=== PATIENT | male | born 1935 | race Caucasian/White ===

== ENCOUNTER 2018-05-11 08:18 | Inpatient (IN) ==
[2018-05-11] MEDS ORDERED: Naloxone 0.4 MG/ML INJ IVP PRN (11:28)
[2018-05-11 12:12] LABS: Basophils % 0.2 %; Hematocrit 21.5 % (37.5-50.1); Hemoglobin 6.9 g/dL (12.9-16.9); Immature Granulocytes % 0.4 % (0-4); Lymphocytes # 1.3 K/mcL (0.6-4.6); Lymphocytes % 11.1 %; Mean Corpuscular HGB Conc 32.1 g/dL (31.6-35.5); Mean Corpuscular Hemoglobin 29.1 pg (28.0-33.3); Mean Corpuscular Volume 90.7 fL (83.0-100.0); Mean Platelet Volume 10.3 fL (9.4-12.4); Monocytes % 8.4 %; Neutrophils # 9.3 K/mcL (1.6-8.9); Platelet Count 257 K/mcL (140-400); Red Blood Count 2.37 M/mcL (4.19-5.50); Red Cell Distribution Width 17.3 % (11.5-14.5); Segmented Neutrophils % 79.9 %
--- NOTE | 2018-05-11 12:13 | Internal Med History&Physical ---
Date of Encounter: 05/11/18 Time of Encounter: 12:20 Internal Medicine - H&P: HPI Chief complaint: gi bleed Admitted From: Intrahospital Transfer History of present illness: presented at transfer from [facility]. Presented to ED with one day of emesis with blood and clots. No prior hx of same. Started in afternoon 05/10. Pt has poor vision and it was whom identified bright red blood and dark clot in oilet after episode of emesis. Two addl episodes since then with most recent 05/11 approx 4 am prior to presented to [facility] ED. No assoicated abd pain. hx of gastric ulcer about 50 years ago. takes ASA 325 g daily s/p CEA about 3 years ago-was instructed to take baby asa but taking higher dose on own. + nausea and emesis as above. one loose bm, pt did not identify blood or melena, none reported by either but unsure if visualized. no associated cp, palpitations, presyncope, fatigue or sob. He has not eaten and is hungry. Agreeable to blood as needed. Denies recent cough, cold, sputum, hemoptysis. No nosebleeds, oral bleeding. Denies cp, plapitations, syncope, presyncope, chest pressure, orthopnea, le edema Denies pallor, rash, jaundice At OSH hgb 7.8, nml platelets. Mild leukocytosis 14s. BP normotensive, HR low 100s. Trop elevated to 0.1 without any acute ischemic changes on EKG, NSR. CT a/ p without acute findings. Received zofran, protonix gtt and transferred for further work up. Past Med Surg Social Fam HX - Past Medical History Medical history: diabetes, hyperlipidemia, hypertension, kidney stones, other Additional medical history: stomach ulcer Psychiatric history: no psych history - Social History Smoking Status: Current every day smoker Packs per day: 0.5 Smokeless Tobacco Status: No Alcohol use: occasionally Drug use: none - Family History Mother History Unknown: Yes Internal Medicine - H&P: Meds Aspirin 325 mg PO HS 10/18/15 [History] Lisinopril/Hydrochlorothiazide [Zestoretic 20-25 mg Tablet] 1 each PO HS [History] Lovastatin [Mevacor] 20 mg PO HS 10/18/15 [History] metFORMIN [Glucophage] 500 mg PO BIDWM 10/18/15 [History] Ferrous Sulfate [Iron] 325 mg PO DAILY 05/11/18 [History] Mv-Min/FA/Vit K/Lycop/Lut/Zeax [Ocuvite Eye + Multi Tablet] 1 tab PO DAILY 05/11 [History] 3 Allergy/AdvReac Type Severity Reaction Status Date / Time No Known Allergies Allergy Verified 05/11/18 12:28 All Systems PM: A 10-system review of systems was performed and is negative for pertinent findings except as documented above in the HPI. - Constitutional Vitals: Temp Pulse Resp BP Pulse Ox 97.4 F L 81 18 157/57 100 05/11/18 10:11 05/11/18 10:11 05/11/18 10:11 05/11/18 10:11 05/11/18 10:11 Exam: General: awake, alert, appears stated age HEENT:EOM intact, pupils equal, round, dry mucus membranes, clear oropharynx , + pallor of conjunctiva, poor dentition Neck: supple, trachea midline Cardiovascular:regular rate and rhythm, normal S1 & S2, no rubs, murmurs or gallops. No JVD. radial pulses 2+, no lower extremity edema Lungs:Normal breath sounds, no wheezes, or crackles. Normal respiratory effort on RA Abdomen:Soft, non-tender, non-distended, no rigidity, decreased bowel sounds, no masses or HSM appreciated Neurological: AAOx3, CN grossly intact, no focal deficits Skin: no rash, no jaundice , + pallor Internal Med - H&P Results - Labs CBC & Chem 7: 05/11/18 11:50 - Assessment and plan (1) Upper GI bleeding Current Visit: Yes Status: Acute Assessment and plan: CT a/p no acute findings, diverticulosis, mild cholelithiasis -hgb 7.9, plt 304 at OSH--drop to 6.9 on stat admit labs, inr 1, fobt neg -orthostat + -rn to insert 2 lg bore iVs -IVFs -2 unit prbc stat -discussed with gi- cont protonix gtt and will eval -npo with ice chips -zofran prn -hold home asa and any pharm vte ppx -hold home meds as non essential -cont to monitor bp, currently normotensive, HR wnl -serial h/hs q 8 hr (2) Elevated troponin Current Visit: Yes Status: Acute Assessment and plan: 0.1 at OSH, asx, no ekg changes on personal review of EKG -repeat trop on admit 0.08 -likely demand ischemia given bleeding, will cont to trend trop, monitor on tele , repeat ekg -keep hgb >8 -hold home asa and statin at this time as npo with gib -will consider cards consult if any changes (3) Acute blood loss anemia Current Visit: Yes Status: Acute Assessment and plan: gb drop to 6.9 and previously 7.8 at osh -no recent priors to compare to--is one ferrous sulfate at home? -serial h/hs -2 units prbc 05/11 -inr and plts wnl -scds only for vte ppx (4) KAYE (acute kidney injury) Current Visit: Yes Status: Acute Assessment and plan: creat at osh 1.49, no recent baseline to compare appears dry on exam -repeat creat, check UA, IVFs, avoid nephro toxic agents (5) Essential hypertension Current Visit: No Status: Chronic Assessment and plan: BP currently normotensive, + orthostats -in setting of gi bleed and kaye, hold lisinopril/hctz 20/25 mg and cont to monitor bp (6) Mixed hyperlipidemia Current Visit: No Status: Chronic Assessment and plan: holding statinat this tie npo for gib (7) Tobacco abuse Current Visit: No Status: Chronic Assessment and plan: education nicotine patch (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
[2018-05-11] MEDS ORDERED: Pantoprazole 40 MG VIAL IVP SCH (12:15)
[2018-05-11 12:30] LABS: Prothrombin Time 11.5 Seconds (9.4-12.1)
[2018-05-11] MEDS ORDERED: Ondansetron 4 MG/2 ML VIAL IVP PRN (12:43)
[2018-05-11] MEDS ORDERED: *HR* Dextrose 50 % in Water (Syg) 50 ML SYRINGE IVP PRN (12:48)
[2018-05-11] MEDS ORDERED: D5% in Water 1,000 ML IVC PRN (12:48)
[2018-05-11] MEDS ORDERED: Dextrose Gel 15 GM/37.5 ML TUBE PO PRN ×2 (12:48)
[2018-05-11] MEDS ORDERED: 0.9 % Sodium Chloride 250 ML ONE (12:59)
[2018-05-11] MEDS: Nicotine 7 MG PATCH.TD24 TD SCH (13:17)
[2018-05-11] MEDS: Ringers Solution, Lactated 1,000 ML IVC SCH (13:18)
[2018-05-11 13:35] LABS: BUN/Creatinine Ratio 52 (6-26); Blood Urea Nitrogen 60 mg/dL (8-23); Calcium 8.9 mg/dL (8.6-10.3); Carbon Dioxide 25 mEq/L (23-29); Chloride 110 mEq/L (98-107); Glucose 128 mg/dL (70-105); Osmolality,Calculated 311 (280-300); Potassium 4.5 mEq/L (3.5-5.1); Sodium 141 mEq/L (136-145); eGFR For Non-African Americans > 60 (> 60)
--- NOTE | 2018-05-11 14:18 | Anesthesia Evaluation PreOp ---
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 History: Other (Hx CEA 3 yrs ago) Other Medical History: Diabetes Type II, GERD (Hx gastric ulcer apprpox 50yrs ago) Anesthesia History: No Prior Anesthetic Complications, Past Anesthesia (L-CEA 2015) Alcohol Use: occasionally Drug use: none Medications and Allergies Aspirin 325 mg PO HS 10/18/15 [History] Lisinopril/Hydrochlorothiazide [Zestoretic 20-25 mg Tablet] 1 each PO HS [History] Lovastatin [Mevacor] 20 mg PO HS 10/18/15 [History] metFORMIN [Glucophage] 500 mg PO BIDWM 10/18/15 [History] Ferrous Sulfate [Iron] 325 mg PO DAILY 05/11/18 [History] Mv-Min/FA/Vit K/Lycop/Lut/Zeax [Ocuvite Eye + Multi Tablet] 1 tab PO DAILY 05/11 [History] 3 Allergy/AdvReac Type Severity Reaction Status Date / Time No Known Allergies Allergy Verified 05/11/18 12:28 - Meds/Allergy Pre-op Review Medications Reviewed: Yes Allergies Reviewed: Yes Beta Blockers on Current Med List: No Anesthesia Results - Labs 05/11/18 11:50 05/11/18 12:54 Laboratory Tests 05/11/18 05/11/18 11:50 12:54 PT 11.5 INR 1.0 Potassium 4.5 Creatinine 1.15 Est GFR (Non-Af Amer) > 60 Anesthesia Exam Vital Signs Temp Pulse Resp BP BP BP BP 05/11/18 13:10 120/57 99/54 105/64 05/11/18 10:11 97.4 F L 81 18 157/57 Pulse Ox 05/11/18 13:10 05/11/18 10:11 100 Intake and Output Patient Weight 05/11/18 23:59 Weight 67.1 kg Height: 5'10" Weight: 147# BMI = 21 NPO (# of Hours): MNoc - HEENT Pupil (Motor): Pupils equal, EOMI Mallampati: II Teeth: Normal Oral Opening: Greater than 3 - MOTOR VE[employer]LE [employer]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 LOC: Oriented [employer] Motor: Normal RUE, Normal LUE, Normal RLE, Normal LLE, Normal Face [employer] Sensory: Normal: RUE, LUE, RLE, LLE, Face - Cardiac Rhythm: Irregular Murmur: None JVD: No - Pulmonary Breath Sounds: bilateral Clear Respiratory Effort: Symmetrical Anesthesia Assess/Plan ASA Score: 3 (HTN, Chol, Smoker, PVDz, GIB, DM) Modified Deyvi Scale for Level of Consciousness: Cooperative, oriented, and tranquil Anesthetic Plan: MAC Monitoring Plan: Standard Monitors Anes Supervising Prov Stmt: Pt seen/evaluated, R&B Discussed, questions answered and consent obtained. Graciela Lorenzana MD
[2018-05-11] MEDS ORDERED: Tetracaine/Benzocaine/Butamben 1 SPRAY AEROSOL MM ONE (14:34)
[2018-05-11] MEDS ORDERED: Simethicone 40 MG/0.6 ML MLS IR ONE (14:34)
[2018-05-11] MEDS: Pantoprazole 40 MG in 0.9 % Sodium Chloride Mini Bag 100 ML IVC SCH ×2 (15:33→20:03)
[2018-05-11] MEDS: Insulin LISPRO 300 UNITS/3 ML VIAL SQ SCH (16:32)
--- NOTE | 2018-05-11 16:53 | Procedure Note ---
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 Status post biopsies and status post use Hemo Penrose to control the bleeding/oozing from the tumor. Was there an radiology physician assistant present: No Estimated blood loss (cc): 0 IV fluids (cc): 0 Urine output (cc): 0 Specimen: Yes Pathology: other (Biopsy done of the ulcer)
--- NOTE | 2018-05-11 17:17 | Electrocardiograph Report ---
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
[2018-05-11 22:25] LABS: Basophils % 0.2 %; Eosinophils % 0.2 %; Hemoglobin 7.2 g/dL (12.9-16.9); Immature Granulocytes % 0.4 % (0-4); Lymphocytes # 1.6 K/mcL (0.6-4.6); Lymphocytes % 17.3 %; Mean Corpuscular HGB Conc 32.7 g/dL (31.6-35.5); Mean Corpuscular Hemoglobin 29.5 pg (28.0-33.3); Mean Corpuscular Volume 90.2 fL (83.0-100.0); Mean Platelet Volume 10.7 fL (9.4-12.4); Monocytes % 10.2 %; Neutrophils # 6.7 K/mcL (1.6-8.9); Platelet Count 223 K/mcL (140-400); Red Blood Count 2.44 M/mcL (4.19-5.50); Red Cell Distribution Width 17.2 % (11.5-14.5); Segmented Neutrophils % 71.7 %
[2018-05-12] MEDS: Ringers Solution, Lactated 1,000 ML IVC SCH ×3 (00:16→19:41)
[2018-05-12] MEDS: Insulin LISPRO 300 UNITS/3 ML VIAL SQ SCH ×4 (00:19→17:17)
[2018-05-12] MEDS: Pantoprazole 40 MG in 0.9 % Sodium Chloride Mini Bag 100 ML IVC SCH ×5 (01:14→19:42)
[2018-05-12 01:56] LABS: Hematocrit 24.1 % (37.5-50.1)
[2018-05-12 02:04] LABS: Prothrombin Time 11.1 Seconds (9.4-12.1)
[2018-05-12 02:11] LABS: BUN/Creatinine Ratio 47 (6-26); Blood Urea Nitrogen 44 mg/dL (8-23); Calcium 8.3 mg/dL (8.6-10.3); Carbon Dioxide 24 mEq/L (23-29); Chloride 112 mEq/L (98-107); Glucose 97 mg/dL (70-105); Osmolality,Calculated 301 (280-300); Sodium 140 mEq/L (136-145); eGFR For Non-African Americans > 60 (> 60)
[2018-05-12 02:12] LABS: Alanine Aminotransferase 6 Units/L (7-52); Albumin 3.1 g/dL (3.5-5.7); Albumin/Globulin Ratio 1.8 (1.1-2.2); Alkaline Phosphatase 53 Units/L (34-104); Aspartate Amino Transferase 12 Units/L (13-39); BUN/Creatinine Ratio 44 (6-26); Bilirubin,Total 0.5 mg/dL (0.3-1.0); Blood Urea Nitrogen 43 mg/dL (8-23); Calcium 8.2 mg/dL (8.6-10.3); Carbon Dioxide 25 mEq/L (23-29); Chloride 112 mEq/L (98-107); Globulin 1.7 g/dL (2.4-3.5); Glucose 98 mg/dL (70-105); Magnesium 1.9 mg/dL (1.6-2.6); Osmolality,Calculated 301 (280-300); Sodium 140 mEq/L (136-145); Total Protein 4.8 g/dL (6.4-8.9); eGFR For Non-African Americans > 60 (> 60)
[2018-05-12 04:44] LABS: Basophils % 0.4 %; Eosinophils % 0.5 %; Hematocrit 24.3 % (37.5-50.1); Hemoglobin 7.9 g/dL (12.9-16.9); Immature Granulocytes % 0.4 % (0-4); Lymphocytes # 1.3 K/mcL (0.6-4.6); Lymphocytes % 16.5 %; Mean Corpuscular HGB Conc 32.5 g/dL (31.6-35.5); Mean Corpuscular Hemoglobin 29.4 pg (28.0-33.3); Mean Corpuscular Volume 90.3 fL (83.0-100.0); Mean Platelet Volume 10.2 fL (9.4-12.4); Monocytes # 0.8 K/mcL (0.0-1.3); Monocytes % 10.6 %; Neutrophils # 5.5 K/mcL (1.6-8.9); Platelet Count 185 K/mcL (140-400); Red Blood Count 2.69 M/mcL (4.19-5.50); Red Cell Distribution Width 16.6 % (11.5-14.5); Segmented Neutrophils % 71.6 %
--- NOTE | 2018-05-12 07:48 | Internal Med Progress Note ---
Hospitalist Progress Note - Encounter Date of Encounter: 05/12/18 Time of Encounter: 09:05 - Subjective Interval History: awake. no family at bedside. cont to have no abd pain, nausea. no further emesis , no bleeding, denied sob, fatigue, presyncope or syncope. No cp, palpitations or chest pressure. updated to egd result and concern for malignancy. all questions answered. Family is anticipated to arrive at some point today so that discussion can be had further regarding egd, gi recs and concern on ct for renal mass - Exam Vitals: Temp Pulse Resp BP Pulse Ox 97.7 F 65 16 130/56 97 05/12/18 06:45 05/12/18 06:45 05/12/18 06:45 05/12/18 06:45 05/12/18 04:36 Exam: General: awake, alert, appears stated age HEENT:EOM intact, pupils equal, round, dry mucus membranes, clear oropharynx , + pallor of conjunctiva, poor dentition Neck: supple, trachea midline Cardiovascular:regular rate and rhythm, normal S1 & S2, no rubs, murmurs or gallops. No JVD. radial pulses 2+, no lower extremity edema Lungs:Normal breath sounds, no wheezes, or crackles. Normal respiratory effort on RA Abdomen:Soft, non-tender, non-distended, no rigidity, decreased bowel sounds, no masses or HSM appreciated Neurological: AAOx3 Skin: no rash, no jaundice , no pallor - Assessment and Plan (1) Upper GI bleeding Current Visit: Yes Status: Acute Assessment and Plan: CT a/p no acute findings, diverticulosis, mild cholelithiasis -hgb 7.9, plt 304 at OSH--drop to 6.9 on stat admit labs, inr 1, fobt neg -orthostat + -IVFs -2 unit prbc 05/11 with hgb increase to 8 -zofran prn -hold home asa and any pharm vte ppx -hold home meds as non essential -cont to monitor bp, currently normotensive, HR wnl -serial h/hs stable -gi following -05/[address] Joseph, with large anastomotic ulcer suspicious for malignancy with bxs taken and hemo spray to ulcer to control bleeding -05/12 d/w GI--cont ppi gtt for addl 48 hrs, will need to await biopsies, ok to advance to clear liquid diet (2) Elevated troponin Current Visit: Yes Status: Acute Assessment and Plan: 0.1 at OSH, asx, no ischemic ekg changes on review of EKG -repeat trop on admit 0.08--up trended, without sxs or ekg changes to 0.16-- then 0.28 this morning -likely demand ischemia given bleeding,but given his medical/tobacco use hx cannot rule out NSTEMI/ACS - will cont to trend trop, monitor on tele, repeat ekg -keep hgb >8 -resume home statin but cannot resume home ASA or start hep gtt given GIB -cards consulted for further recommendations of work up / treatment and case discussed -check echo and risk stratify with tsh, a1c, lipid panel -will keep npo until seen by cards -serial h/h today to keep hgb >8 (3) Acute blood loss anemia Current Visit: Yes Status: Acute Assessment and Plan: gb drop to 6.9 and previously 7.8 at osh -no recent priors to compare to--is one ferrous sulfate at home? -serial h/hs -2 units prbc 05/11 with increase to 8 -inr and plts wnl -scds only for vte ppx -cont serial h/h and transfuse to keep >8 (4) KAYE (acute kidney injury) Current Visit: Yes Status: Acute Assessment and Plan: creat at osh 1.49, no recent baseline to compare appears dry on exam Creat now normal - check UA, IVFs, avoid nephro toxic agents (5) Essential hypertension Current Visit: No Status: Chronic Assessment and Plan: BP currently normotensive, + orthostats -in setting of gi bleed and kaye, hold lisinopril/hctz 20/25 mg and cont to monitor bp (6) Mixed hyperlipidemia Current Visit: No Status: Chronic Assessment and Plan: check lipid panel as above cont statin (7) Tobacco abuse Current Visit: No Status: Chronic Assessment and Plan: education nicotine patch (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 Current Visit: No Status: Chronic Assessment and Plan: on metformin at home received study with dye 05/11 hold metformin ssi and accu checks, prn hypoglycemics -check a1c as above (9) Renal mass Current Visit: Yes Status: Acute Assessment and Plan: Updated infor from OSH with fax of CT a/p read now including questionable R Renal mass -will obtain renal US to eval further -this is concerning given suspected GI malignancy DVT Prophylaxis: scd as above - Time Spent with Patient Total time spent is greater than 50% in coordination of care (as documented) at patient's floor/unit and/or counseling patient: 25 - 35 minutes Plan of Care Discussed with: patient Internal Medicine: Result - Labs CBC & Chem 7: 05/12/18 04:28 05/12/18 01:18 Labs: Short CBC 05/11/18 05/11/18 05/12/18 Range/Units 11:50 21:41 01:18 WBC 11.7 H 9.3 (4.3-11.1) K/mcL Hgb 6.9 L 7.2 L 8.0 L (12.9-16.9) g/dL Hct 21.5 L 22.0 L 24.1 L (37.5-50.1) % Plt Count 257 223 (140-400) K/mcL Neutrophils # 9.3 H 6.7 (1.6-8.9) K/mcL 05/12/18 Range/Units 04:28 WBC 7.6 (4.3-11.1) K/mcL Hgb 7.9 L (12.9-16.9) g/dL Hct 24.3 L (37.5-50.1) % Plt Count 185 (140-400) K/mcL Neutrophils # 5.5 (1.6-8.9) K/mcL BMP 05/11/18 05/12/18 05/12/18 12:54 01:18 01:18 Sodium 141 140 140 Potassium 4.5 4.0 4.0 Chloride 110 H 112 H 112 H Carbon Dioxide 25 24 25 BUN 60 H 44 H 43 H Creatinine 1.15 0.93 0.97 Glucose 128 H 97 98 Calcium 8.9 8.3 L 8.2 L Cardiac Enzymes 05/11/18 05/11/18 05/11/18 Range/Units 11:50 17:44 21:41 Troponin I 0.08 H* 0.16 H* 0.28 H* (< 0.04) ng/mL Liver Function 05/12/18 Range/Units 01:18 Total Bilirubin 0.5 (0.3-1.0) mg/dL AST 12 L (13-39) Units/L ALT 6 L (7-52) Units/L Alkaline Phosphatase 53 (34-104) Units/L Albumin 3.1 L (3.5-5.7) g/dL - ABG Interpretation ABG results: PT/INR, D-dimer PT 11.1 Seconds (9.4-12.1) 05/12/18 01:18 - VTE Reasons for not Prescribing Prophylaxis: Medical contraindication Documentation of Mechanical Device: Intermittent pneumatic compression device Consult Discharge Plan - Plan Referrals: Cherri Amado INSTRUCTOR ADJUNCT PHARMACY TECHNICIAN [Primary Care Provider] -
[2018-05-12 08:39] LABS: Chol/HDL Ratio 3.4 (0-4.9)
[2018-05-12 08:51] LABS: Thyroid Stimulating Hormone 1.231 mcIU/mL (0.340-5.600)
[2018-05-12 08:55] LABS: Estimated Average Glucose 105 mg/dl; Hemoglobin A1C 5.3 %
[2018-05-12] MEDS: Nicotine 7 MG PATCH.TD24 TD SCH (09:26)
--- NOTE | 2018-05-12 11:12 | General Surgery Consult Note ---
<Celestino Cameron R - Last Filed: 05/12/18 11:56> Date of Encounter: 05/12/18 Time of Encounter: 10:56 Assessment and Plan (1) Upper GI bleeding Current Visit: Yes Status: Acute s/p egd with Dr. Joseph, findings of suspicious ulcer Currently without nausea, vomiting, or hematemesis. Plan: Biopsies pending, will continue to follow with further plan of care pending results Hold aspirin and pharmacologic dvt prophylaxis Continue PPI and carafate prn antiemetic closely follow vital signs and h/h Clear liquid diet ok comfort care (2) Acute blood loss anemia Current Visit: Yes Status: Acute Patient was transfused 2 units prbc's on 05/11 continue to monitor h/h transfuse as necessary mechanical dvt prophylaxis (3) KAYE (acute kidney injury) Current Visit: Yes Status: Acute Resolving, Ucr 0.97 this am Avoid nephrotoxic agents. Replete electrolytes as needed (4) Elevated troponin Current Visit: Yes Status: Acute Cardiology consulted Management per cardiology and primary teams History of Present Illness Consult date: 05/12/18 (Dr. Madden) Reason for consult: other (Gastric ulcer suspicious for cancer) Requesting physician: Татьяна Cronin History of present illness: Mr. Apple is an 82 year old male with a history of diabetes, hyperlipidemia, HTN, s/p CEA in 2016, and s/p gastrectomy with possible billroth reconstruction several decades ago, which was done for bleeding ulcer. Patient reports vomiting blood and clot starting 3 days ago, when hematemesis continued he presented to [facility] ED for evaluation. Last episode of vomiting was 05/11. Patient denies abdominal or epigastric pain. Denies previous history of hematemesis. Denies hematochezia or melena, no known history of colonoscopy. Denies chest pain, shortness of breath, or palpitations. Takes aspirin daily since CEA, denies other anticoag medications. Initial CT did not reveal acute findings and Hgb was 7.8. Patient was transfered to [facility] for further evaluation and management. Subsequent Hgb was 6.9 and patient was transfused to units PRBCs on 05/11. Dr. Joseph performed EGD on 05/11 with findings significant for large ulcer at the gastroenteric anastomosis, suspicious for cancer. Biopsies were taken and are pending. Surgery was consulted to follow for suspected cancer. At present patient is comfortable s/p EGD. He is tolerating clear liquid diet this AM without nausea. No recent episodes of hematemesis. Denies history of cancer. Reports living at home with his . Generally in good health. Past Med Surg Social Fam HX - Past Medical History Medical history: diabetes, hyperlipidemia, hypertension, kidney stones, other Additional medical history: stomach ulcer Psychiatric history: no psych history - Past Surgical History Additional surgical history: Gastrectomy (40-50 years ago). Carotidendarterectomy 2016 - Social History Smoking Status: Current every day smoker Packs per day: 0.5 Smokeless Tobacco Status: No Alcohol use: occasionally Drug use: none - Family History Mother History Unknown: Yes Medications and Allergies Aspirin 325 mg PO HS 10/18/15 [History] Lisinopril/Hydrochlorothiazide [Zestoretic 20-25 mg Tablet] 1 each PO HS [History] Lovastatin [Mevacor] 20 mg PO HS 10/18/15 [History] metFORMIN [Glucophage] 500 mg PO BIDWM 10/18/15 [History] Ferrous Sulfate [Iron] 325 mg PO DAILY 05/11/18 [History] Mv-Min/FA/Vit K/Lycop/Lut/Zeax [Ocuvite Eye + Multi Tablet] 1 tab PO DAILY 05/11 [History] 3 Allergy/AdvReac Type Severity Reaction Status Date / Time No Known Allergies Allergy Verified 05/11/18 12:28 Review of Systems All systems PM: The remainder of the systems were reviewed and are negative - Constitutional no chills, no fever(s), no lethargy - Cardiovascular no chest pain, no dyspnea, no palpitations - Gastrointestinal coffee ground emesis, hematemesis, nausea, vomiting, no abdominal pain, no change in stool character, no diarrhea, no dysphagia, no hematochezia, no melena , no odynophagia General Surgery Exam Initial Vital Signs Temp Pulse Resp BP Pulse Ox 97.4 F L 81 18 157/57 100 05/11/18 10:11 05/11/18 10:11 05/11/18 10:11 05/11/18 10:11 05/11/18 10:11 - General physical appearance no distress, no pain, other (elderly) - Eyes normal ocular movement - ENT normal mucosa, poor care home, atraumatic, normocephalic - Neck trachea midline, no venous distension - Respiratory normal expansion, normal respiratory effort, clear to auscultation - Cardiovascular Cardiovascular exam: Present: RRR - Abdomen Abdomen general surgery: Present: bowel sounds present, soft, non tender, surgical scars (well healed midline scar). Absent: distended, guarding, rebound - Integumentary Integumentary general surgery: Present: warm and dry - Neurologic Present: CN 2-12 grossly intact - Musculoskeletal Present: normal posture - Psychiatric Psychiatric general surgery: Present: A&Ox3, speech is normal, memory intact Exam Initial Vital Signs Temp Pulse Resp BP Pulse Ox 97.4 F L 81 18 157/57 100 05/11/18 10:11 05/11/18 10:11 05/11/18 10:11 05/11/18 10:11 05/11/18 10:11 Results - Labs 05/12/18 04:28 05/12/18 01:18 Abnormal lab results RBC 2.69 M/mcL (4.19-5.50) L 05/12/18 04:28 Hgb 7.9 g/dL (12.9-16.9) L 05/12/18 04:28 Hct 24.3 % (37.5-50.1) L 05/12/18 04:28 RDW 16.6 % (11.5-14.5) H 05/12/18 04:28 Chloride 112 mEq/L (98-107) H 05/12/18 01:18 BUN 43 mg/dL (8-23) H 05/12/18 01:18 BUN/Creatinine Ratio 44 (6-26) H 05/12/18 01:18 POC Glucose 135 mg/dL (70-99) H 05/11/18 16:18 Calculated Osmolality 301 (280-300) H 05/12/18 01:18 Calcium 8.2 mg/dL (8.6-10.3) L 05/12/18 01:18 AST 12 Units/L (13-39) L 05/12/18 01:18 ALT 6 Units/L (7-52) L 05/12/18 01:18 Troponin I 0.28 ng/mL (< 0.04) H* 05/11/18 21:41 Serum Total Protein 4.8 g/dL (6.4-8.9) L 05/12/18 01:18 Albumin 3.1 g/dL (3.5-5.7) L 05/12/18 01:18 Globulin 1.7 g/dL (2.4-3.5) L 05/12/18 01:18 HDL Cholesterol 29 mg/dL (40-59) L 05/12/18 08:06 Diabetes panel 05/11/18 05/12/18 05/12/18 Range/Units 12:54 01:18 01:18 Sodium 141 140 140 (136-145) mEq/L Potassium 4.5 4.0 4.0 (3.5-5.1) mEq/L Chloride 110 H 112 H 112 H (98-107) mEq/L Carbon Dioxide 25 24 25 (23-29) mEq/L BUN 60 H 44 H 43 H (8-23) mg/dL Creatinine 1.15 0.93 0.97 (0.70-1.30) mg/dL Glucose 128 H 97 98 (70-105) mg/dL Hemoglobin A1c ( - 5.6) % Calcium 8.9 8.3 L 8.2 L (8.6-10.3) mg/dL AST 12 L (13-39) Units/L ALT 6 L (7-52) Units/L Alkaline Phosphatase 53 (34-104) Units/L Albumin 3.1 L (3.5-5.7) g/dL Triglycerides (< 150) mg/dL HDL Cholesterol (40-59) mg/dL 05/12/18 05/12/18 Range/Units 08:06 08:06 Sodium (136-145) mEq/L Potassium (3.5-5.1) mEq/L Chloride (98-107) mEq/L Carbon Dioxide (23-29) mEq/L BUN (8-23) mg/dL Creatinine (0.70-1.30) mg/dL Glucose (70-105) mg/dL Hemoglobin A1c 5.3 ( - 5.6) % Calcium (8.6-10.3) mg/dL AST (13-39) Units/L ALT (7-52) Units/L Alkaline Phosphatase (34-104) Units/L Albumin (3.5-5.7) g/dL Triglycerides 135 (< 150) mg/dL HDL Cholesterol 29 L (40-59) mg/dL Thyroid panel 05/12/18 Range/Units 08:06 TSH 1.231 (0.340-5.600) mcIU/mL Calcium panel 05/11/18 05/12/18 05/12/18 Range/Units 12:54 01:18 01:18 Calcium 8.9 8.3 L 8.2 L (8.6-10.3) mg/dL Albumin 3.1 L (3.5-5.7) g/dL Pituitary panel 05/11/18 05/12/18 05/12/18 Range/Units 12:54 01:18 01:18 Sodium 141 140 140 (136-145) mEq/L Potassium 4.5 4.0 4.0 (3.5-5.1) mEq/L Chloride 110 H 112 H 112 H (98-107) mEq/L Carbon Dioxide 25 24 25 (23-29) mEq/L BUN 60 H 44 H 43 H (8-23) mg/dL Creatinine 1.15 0.93 0.97 (0.70-1.30) mg/dL Glucose 128 H 97 98 (70-105) mg/dL Calcium 8.9 8.3 L 8.2 L (8.6-10.3) mg/dL TSH (0.340-5.600) mcIU/mL 05/12/18 Range/Units 08:06 Sodium (136-145) mEq/L Potassium (3.5-5.1) mEq/L Chloride (98-107) mEq/L Carbon Dioxide (23-29) mEq/L BUN (8-23) mg/dL Creatinine (0.70-1.30) mg/dL Glucose (70-105) mg/dL Calcium (8.6-10.3) mg/dL TSH 1.231 (0.340-5.600) mcIU/mL Adrenal panel 05/11/18 05/12/18 05/12/18 Range/Units 12:54 01:18 01:18 Sodium 141 140 140 (136-145) mEq/L Potassium 4.5 4.0 4.0 (3.5-5.1) mEq/L Chloride 110 H 112 H 112 H (98-107) mEq/L Carbon Dioxide 25 24 25 (23-29) mEq/L BUN 60 H 44 H 43 H (8-23) mg/dL Creatinine 1.15 0.93 0.97 (0.70-1.30) mg/dL Glucose 128 H 97 98 (70-105) mg/dL Calcium 8.9 8.3 L 8.2 L (8.6-10.3) mg/dL Total Bilirubin 0.5 (0.3-1.0) mg/dL AST 12 L (13-39) Units/L ALT 6 L (7-52) Units/L Alkaline Phosphatase 53 (34-104) Units/L Albumin 3.1 L (3.5-5.7) g/dL All other labs normal. Consult Discharge Plan - Plan Referrals: Cherri Amado, PATHOLOGY SPECIALIST [Primary Care Provider] - <Hermlio Madden - Last Filed: 05/12/18 13:41> Date of Encounter: 05/12/18 Review of Systems All systems PM: The remainder of the systems were reviewed and are negative General Surgery Exam Initial Vital Signs Temp Pulse Resp BP Pulse Ox 97.4 F L 81 18 157/57 100 05/11/18 10:11 05/11/18 10:11 05/11/18 10:11 05/11/18 10:11 05/11/18 10:11 Exam Initial Vital Signs Temp Pulse Resp BP Pulse Ox 97.4 F L 81 18 157/57 100 05/11/18 10:11 05/11/18 10:11 05/11/18 10:11 05/11/18 10:11 05/11/18 10:11 Results - Labs 05/12/18 04:28 05/12/18 01:18 Abnormal lab results RBC 2.69 M/mcL (4.19-5.50) L 05/12/18 04:28 Hgb 7.9 g/dL (12.9-16.9) L 05/12/18 04:28 Hct 24.3 % (37.5-50.1) L 05/12/18 04:28 RDW 16.6 % (11.5-14.5) H 05/12/18 04:28 Chloride 112 mEq/L (98-107) H 05/12/18 01:18 BUN 43 mg/dL (8-23) H 05/12/18 01:18 BUN/Creatinine Ratio 44 (6-26) H 05/12/18 01:18 Calculated Osmolality 301 (280-300) H 05/12/18 01:18 Calcium 8.2 mg/dL (8.6-10.3) L 05/12/18 01:18 AST 12 Units/L (13-39) L 05/12/18 01:18 ALT 6 Units/L (7-52) L 05/12/18 01:18 Troponin I 0.28 ng/mL (< 0.04) H* 05/11/18 21:41 Serum Total Protein 4.8 g/dL (6.4-8.9) L 05/12/18 01:18 Albumin 3.1 g/dL (3.5-5.7) L 05/12/18 01:18 Globulin 1.7 g/dL (2.4-3.5) L 05/12/18 01:18 HDL Cholesterol 29 mg/dL (40-59) L 05/12/18 08:06 Diabetes panel 05/12/18 05/12/18 05/12/18 Range/Units 01:18 01:18 08:06 Sodium 140 140 (136-145) mEq/L Potassium 4.0 4.0 (3.5-5.1) mEq/L Chloride 112 H 112 H (98-107) mEq/L Carbon Dioxide 24 25 (23-29) mEq/L BUN 44 H 43 H (8-23) mg/dL Creatinine 0.93 0.97 (0.70-1.30) mg/dL Glucose 97 98 (70-105) mg/dL Hemoglobin A1c 5.3 ( - 5.6) % Calcium 8.3 L 8.2 L (8.6-10.3) mg/dL AST 12 L (13-39) Units/L ALT 6 L (7-52) Units/L Alkaline Phosphatase 53 (34-104) Units/L Albumin 3.1 L (3.5-5.7) g/dL Triglycerides (< 150) mg/dL HDL Cholesterol (40-59) mg/dL 05/12/18 Range/Units 08:06 Sodium (136-145) mEq/L Potassium (3.5-5.1) mEq/L Chloride (98-107) mEq/L Carbon Dioxide (23-29) mEq/L BUN (8-23) mg/dL Creatinine (0.70-1.30) mg/dL Glucose (70-105) mg/dL Hemoglobin A1c ( - 5.6) % Calcium (8.6-10.3) mg/dL AST (13-39) Units/L ALT (7-52) Units/L Alkaline Phosphatase (34-104) Units/L Albumin (3.5-5.7) g/dL Triglycerides 135 (< 150) mg/dL HDL Cholesterol 29 L (40-59) mg/dL Thyroid panel 05/12/18 Range/Units 08:06 TSH 1.231 (0.340-5.600) mcIU/mL Calcium panel 05/12/18 05/12/18 Range/Units :10 09:18 Calcium 8.3 L 8.2 L (8.6-10.3) mg/dL Albumin 3.1 L (3.5-5.7) g/dL Pituitary panel 05/12/18 05/12/18 05/12/18 Range/Units :10 09: 08:06 Sodium 140 140 (136-145) mEq/L Potassium 4.0 4.0 (3.5-5.1) mEq/L Chloride 112 H 112 H (98-107) mEq/L Carbon Dioxide 24 25 (23-29) mEq/L BUN 44 H 43 H (8-23) mg/dL Creatinine 0.93 0.97 (0.70-1.30) mg/dL Glucose 97 98 (70-105) mg/dL Calcium 8.3 L 8.2 L (8.6-10.3) mg/dL TSH 1.231 (0.340-5.600) mcIU/mL Adrenal panel 05/12/18 05/12/18 Range/Units :10 09:18 Sodium 140 140 (136-145) mEq/L Potassium 4.0 4.0 (3.5-5.1) mEq/L Chloride 112 H 112 H (98-107) mEq/L Carbon Dioxide 24 25 (23-29) mEq/L BUN 44 H 43 H (8-23) mg/dL Creatinine 0.93 0.97 (0.70-1.30) mg/dL Glucose 97 98 (70-105) mg/dL Calcium 8.3 L 8.2 L (8.6-10.3) mg/dL Total Bilirubin 0.5 (0.3-1.0) mg/dL AST 12 L (13-39) Units/L ALT 6 L (7-52) Units/L Alkaline Phosphatase 53 (34-104) Units/L Albumin 3.1 L (3.5-5.7) g/dL All other labs normal. - Attending Attestation I examined this patient and my medical decision-making was reviewed with the Resident Physician. I agree with the documented findings, disposition and treatment plan as described except to the extent set forth below. The patient appears to have a bleeding growth at the gastrojejunal anastomosis. We will await biopsies, however, since this is a bleeding mass resection is almost certainly indicated. I will work with gastroenterology and the oncologist on surgical planning. I will be glad to follow patient along with you thank you. 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 Hermilo Madden MD FACS
--- NOTE | 2018-05-12 11:26 | Gastroenterology Consult Note ---
<Ava Beckham - Last Filed: 05/12/18 11:28> Date of Encounter: 05/12/18 Time of Encounter: 09:15 - Assessment and plan (1) Upper GI bleeding Current Visit: Yes Status: Acute Assessment and plan: Pt presents with hemetemesis, EGD yesterday showed ulcer at gastric anastamosis suspicious for malignancy and plaques consistent with pascale. Pathology remains pending, surgery was consulted, he was started on diflucan, protonix and carafate. - Time Spent With Patient Total time spent is greater than 50% in coordination of care (as documented) at patient's floor/unit and/or counseling patient: GI History of Present Illness - Data of Consult Patient: new to practice Consult date: 05/11/18 Requesting Physician: Татьяна Cronin - Consult Narrative Reason for consult: hemetemesis History of present illness: Mr. Apple is an 82 year old male with a history of diabetes, hyperlipidemia, HTN, s/p CEA in 2016, and s/p gastrectomy with possible billroth reconstruction several decades ago, which was done for bleeding ulcer. Patient reports vomiting blood and clots starting 4 days ago, when hematemesis continued he presented to [facility] ED for evaluation. Last episode of vomiting was 05/11. Patient denies abdominal or epigastric pain. Denies previous history of hematemesis. Denies hematochezia or melena. Denies chest pain, shortness of breath, or palpitations. Takes aspirin daily since CEA, denies other anticoag medications. Initial CT did not reveal acute findings and Hgb was 7.8. Subsequent Hgb was 6.9 and patient was transfused two units PRBCs on 05/11. EGD on 05/11 with findings significant for large ulcer at the gastroenteric anastomosis, suspicious for cancer. Biopsies were taken and are pending. colonoscopy: denies Past Med Surg Social Fam HX - Past Medical History Medical history: diabetes, hyperlipidemia, hypertension, kidney stones, other Additional medical history: stomach ulcer Psychiatric history: no psych history - Past Surgical History Additional surgical history: Gastrectomy (40-50 years ago). Carotidendarterectomy 2016 - Social History Smoking Status: Current every day smoker Packs per day: 0.5 Smokeless Tobacco Status: No Alcohol use: occasionally Drug use: none - Family History Mother History Unknown: Yes Review of Systems: GENERAL: denies fever or chills EYES: denies yellow discoloration ENT: denies pain with swallowing or difficulty swallowing CARDIO: denies chest pain, palpitations RESP: No Shortness of breath with exertion : denies change in color of urine NEURO: denies any weakness HEME: Denies any bruising MS: denies joint pain, joint swelling or back pain. DERM: denies rash or itching PSYCH: Denies history of anxiety or depression - Constitutional Vitals: Temp Pulse Resp BP Pulse Ox 97.7 F 65 16 130/56 97 05/12/18 06:45 05/12/18 06:45 05/12/18 06:45 05/12/18 06:45 05/12/18 04:36 Exam: CONSTITUTIONAL:~alert, no acute distress.~HEAD:~normocephalic.~EYES:~no jaundice.~NECK:~no obvious swelling.~HEART:~regular rate and rhythm, no murmurs. ~LUNGS:~bilateral good air entry.~ABDOMEN:~non distended, soft, non tander, no masses pulpable, no organomegaly, scars well healed.~RECTAL EXAM:~Deferred.~ EXTREMITIES:~no clubbing, cyanosis or edema.~SKIN:~pallor noted,no stigmata of chronic liver disease.~NEUROLOGIC:~no obvious focal defect.~~~~ Results - Labs CBC & Chem 7: 05/12/18 04:28 05/12/18 01:18 Labs: Last Result Calcium 8.2 mg/dL (8.6-10.3) L 05/12/18 01:18 Troponin I 0.28 ng/mL (< 0.04) H* 05/11/18 21:41 Triglycerides 135 mg/dL (< 150) 05/12/18 08:06 Entire Visit Hgb 7.9 g/dL (12.9-16.9) L 05/12/18 04:28 Hct 24.3 % (37.5-50.1) L 05/12/18 04:28 PT 11.1 Seconds (9.4-12.1) 05/12/18 01:18 Total Bilirubin 0.5 mg/dL (0.3-1.0) 05/12/18 01:18 AST 12 Units/L (13-39) L 05/12/18 01:18 ALT 6 Units/L (7-52) L 05/12/18 01:18 - ABG ABG results: PT/INR, D-dimer PT 11.1 Seconds (9.4-12.1) 05/12/18 01:18 Consult Discharge Plan - Plan Referrals: Cherri Amado, PROPERTY MANAGEMENT ASSISTANT [Primary Care Provider] - <Simba Joseph - Last Filed: 05/12/18 15:02> Date of Encounter: 05/12/18 Time of Encounter: 14:00 - Time Spent With Patient Total time spent is greater than 50% in coordination of care (as documented) at patient's floor/unit and/or counseling patient: GI History of Present Illness - Data of Consult Requesting Physician: Татьяна Cronin - Consult Narrative History of present illness: Mr. Apple is a 82 year old male - Constitutional Vitals: Temp Pulse Resp BP Pulse Ox 97.7 F 65 16 130/56 97 05/12/18 06:45 05/12/18 06:45 05/12/18 06:45 05/12/18 06:45 05/12/18 04:36 Results - Labs CBC & Chem 7: 05/12/18 13:27 05/12/18 01:18 Labs: Last Result Calcium 8.2 mg/dL (8.6-10.3) L 05/12/18 01:18 Troponin I 0.45 ng/mL (< 0.04) H* 05/12/18 13:27 Triglycerides 135 mg/dL (< 150) 05/12/18 08:06 Entire Visit Hgb 8.4 g/dL (12.9-16.9) L 05/12/18 13:27 Hct 26.6 % (37.5-50.1) L 05/12/18 13:27 PT 11.1 Seconds (9.4-12.1) 05/12/18 01:18 Total Bilirubin 0.5 mg/dL (0.3-1.0) 05/12/18 01:18 AST 12 Units/L (13-39) L 05/12/18 01:18 ALT 6 Units/L (7-52) L 05/12/18 01:18 - ABG ABG results: PT/INR, D-dimer PT 11.1 Seconds (9.4-12.1) 05/12/18 01:18 - Impressions Impressions Echocardiogram 05/12/18 07:56 Impressions: LVEF 60%. Normal LV chamber size and overall function. Mild concentric left ventricular hypertrophy. Mild segmental left ventricular systolic dysfunction. Mild left ventricular diastolic dysfunction. Normal right ventricular structure and function. No evidence of pulmonary hypertension. No significant valvular dysfunction. Left Ventricular Wall Motion: Rest Echo Findings The basal inferior wall was hypokinetic. All other wall segments showed normal motion. Findings: Study Quality * Technically adequate exam. ECG Findings * Normal sinus rhythm. Left Ventricle * LVEF 60%. * Normal LV chamber size and overall function. * Mild concentric left ventricular hypertrophy. * Mild left ventricular diastolic dysfunction. * Mild segmental left ventricular systolic dysfunction. Right Ventricle * Normal right ventricular structure and function. Left Atrium * Normal left atrial size. Right Atrium * Normal right atrial size. Aortic Valve * Trileaflet aortic valve with normal function. * No aortic stenosis. * No aortic regurgitation. Mitral Valve * Mild mitral annular calcification * No mitral stenosis. * No mitral regurgitation. Tricuspid Valve * Normal tricuspid valve structure and function. * Trace tricuspid regurgitation. * No evidence of pulmonary hypertension. Pulmonic Valve * Pulmonic valve is not well visualized. * No pulmonic regurgitation. Aorta * Normally sized aortic root. Pericardium * The pericardium appears normal. IVC * Normal IVC dimensions and inspiratory collapse. Pulmonary Artery * Normal visualized portions of the main pulmonary artery. - Attending Attestation I have personally performed a face to face evaluation on this patient. I have reviewed and agree with the care plan. History and Exam by me shows: Patient seen at the bedside feeling good denies any abdominal pain. On examination abdomen is benign. Assessment patient with a history of Billiroth surgery about 15 years ago now with the anastomotic ulcer suspicious for malignancy. Recommendation: Follow H&H continue PPI infusion follow path.
[2018-05-12] MEDS: Fluconazole 100 MG TABLET PO SCH (11:48)
[2018-05-12] MEDS: Sucralfate 1 GM TABLET PO SCH ×3 (11:48→22:11)
[2018-05-12 13:49] LABS: Hematocrit 26.6 % (37.5-50.1); Hemoglobin 8.4 g/dL (12.9-16.9)
--- NOTE | 2018-05-12 14:42 | Cardiology Consult Note ---
<Kat Bravo - Last Filed: 05/12/18 15:35> Date of Encounter: 05/12/18 Time of Encounter: 13:30 Assessment and Plan (1) Upper GI bleeding Current Visit: Yes Status: Acute Per cardiology: -Admitted with hematemesis. -Hemoglobin 6.9 admission. -Management per primary and GI services. (2) Elevated troponin Current Visit: Yes Status: Acute Per cardiology: -Troponins 0.08, 0.16, 0.28, 0.45 in the setting of GI bleed, acute blood loss anemia. -Denies chest pain, shortness of breath -No acute ischemic ECG changes. -TTE with LVEF 55%, mild concentric LVH, mild diastolic dysfunction, basal inferior wall hypokinetic, all other wall segments with normal motion. -ON statin. Not on asa, heparin due to acute blood loss anemia. -Stress 09/2015 poor study due to bowel uptake, however may be area of ischemia. -NSTEMI II in the setting of GI bleed, acute blood loss anemia. No cardiac rehab consult is warranted. -Continue to trend troponins til down trend. -With wall motion abnormality, ideally would recommend C, however patient is not a candidate with acute GI bleed. Can consider outpatient ischemic evaluation. Discussion w patient/family: The assessment and plan as outlined above was discussed with the patient and/or family members who expressed understanding and agreement. All questions were answered. Thank you for involving us in the care of your patient. Please call with any questions. Discussed and reviewed with . History of Present Illness Consult date: 05/12/18 Requesting physician: Татьяна Cronin Consult reason: elevated troponin Chief complaint: hematemesis History of present illness: Mr. Apple is a 82 year old male with a relevant past medical history of HLD, DM, Carotid disease s/p CEA, gastric ulcers, HTN who presented to [facility] with complaints of vomiting blood red blood and blood clots. Cardiology was consulted for elevated troponin. Patient denies chest pain. Denies shortness of breath. Patient denies fatigue, states he is able to work in his yard. Of note, daughter states that for the last 6 months, patient has been taking more frequent naps. Past Med Surg Social Fam HX - Past Medical History Attestation: Yes The following information was validated with the patient. Source: patient, old records reviewed, obtained from family Medical history: diabetes, hyperlipidemia, hypertension, kidney stones, other Additional medical history: stomach ulcer Psychiatric history: no psych history - Past Surgical History Additional surgical history: Gastrectomy (40-50 years ago). Carotidendarterectomy 2016 - Social History Smoking Status: Current every day smoker Packs per day: 0.5 Smokeless Tobacco Status: No Alcohol use: occasionally Drug use: none - Family History Mother History Unknown: Yes Medications and Allergies Aspirin 325 mg PO HS 10/18/15 [History] Lisinopril/Hydrochlorothiazide [Zestoretic 20-25 mg Tablet] 1 each PO HS [History] Lovastatin [Mevacor] 20 mg PO HS 10/18/15 [History] metFORMIN [Glucophage] 500 mg PO BIDWM 10/18/15 [History] Ferrous Sulfate [Iron] 325 mg PO DAILY 05/11/18 [History] Mv-Min/FA/Vit K/Lycop/Lut/Zeax [Ocuvite Eye + Multi Tablet] 1 tab PO DAILY 05/11 [History] 3 Allergy/AdvReac Type Severity Reaction Status Date / Time No Known Allergies Allergy Verified 05/11/18 12:28 All Systems Review: The remainder of the systems were reviewed and are negative - Cardiovascular Cardiovascular: as per HPI - Gastrointestinal Gastrointestinal: hematemesis Physical Examination Vital Signs Temperature 97.4 F L 05/11/18 10:11 Pulse Rate 81 05/11/18 10:11 Respiratory Rate 18 05/11/18 10:11 Blood Pressure 157/57 05/11/18 10:11 O2 Sat by Pulse Oximetry 100 05/11/18 10:11 Temperature 97.7 F 05/12/18 06:45 Pulse Rate 65 05/12/18 06:45 Respiratory Rate 16 05/12/18 06:45 Blood Pressure 130/56 05/12/18 06:45 O2 Sat by Pulse Oximetry 97 05/12/18 04:36 General: Conversant, No Apparent Distress HEENT: Atraumatic, Normocephaly, Mucus Membranes Moist Neck: No JVD, Normal carotid pulses Cardiac: Reg Rate and Rhythm, Normal S1 and S2, No Murmur Lungs: Normal Breath Sounds, No Wheeze, Rales, Rhonchi Neuro: Alert and responsive, No focal deficits noted Abdomen: Soft, Non-Tender Skin: No rashes noted on visualized skin Musculoskeletal: No Chest Wall Tenderness Extremities: No Clubbing, No Cyanosis, No Edema, Normal Pulses Results 05/12/18 13:27 05/12/18 01:18 Lab Results 05/11/18 05/11/18 05/11/18 17:44 21:41 21:41 WBC 9.3 Hgb 7.2 L Hct 22.0 L Plt Count 223 INR Sodium Potassium Chloride Carbon Dioxide BUN Creatinine Glucose Calcium Magnesium Total Bilirubin AST ALT Alkaline Phosphatase Troponin I 0.16 H* 0.28 H* TSH Impressions Echocardiogram 05/12/18 07:56 Impressions: LVEF 60%. Normal LV chamber size and overall function. Mild concentric left ventricular hypertrophy. Mild segmental left ventricular systolic dysfunction. Mild left ventricular diastolic dysfunction. Normal right ventricular structure and function. No evidence of pulmonary hypertension. No significant valvular dysfunction. Left Ventricular Wall Motion: Rest Echo Findings The basal inferior wall was hypokinetic. All other wall segments showed normal motion. Findings: Study Quality * Technically adequate exam. ECG Findings * Normal sinus rhythm. Left Ventricle * LVEF 60%. * Normal LV chamber size and overall function. * Mild concentric left ventricular hypertrophy. * Mild left ventricular diastolic dysfunction. * Mild segmental left ventricular systolic dysfunction. Right Ventricle * Normal right ventricular structure and function. Left Atrium * Normal left atrial size. Right Atrium * Normal right atrial size. Aortic Valve * Trileaflet aortic valve with normal function. * No aortic stenosis. * No aortic regurgitation. Mitral Valve * Mild mitral annular calcification * No mitral stenosis. * No mitral regurgitation. Tricuspid Valve * Normal tricuspid valve structure and function. * Trace tricuspid regurgitation. * No evidence of pulmonary hypertension. Pulmonic Valve * Pulmonic valve is not well visualized. * No pulmonic regurgitation. Aorta * Normally sized aortic root. Pericardium * The pericardium appears normal. IVC * Normal IVC dimensions and inspiratory collapse. Pulmonary Artery * Normal visualized portions of the main pulmonary artery. Active Medications Dextrose/Water (Dextrose 50% (Syg)) 25 ml IVP AD PRN PRN Reason: Hypoglycemia Stop: 11/10/18 12:49 Diphenhydramine HCl (Benadryl) 25 mg PO HS PRN PRN Reason: Insomnia Stop: 11/10/18 23:31 Last Admin: 05/12/18 00:17 Dose: 25 mg Fluconazole (Diflucan) 100 mg PO DAILY [facility] Stop: 05/22/18 10:46 Last Admin: 05/12/18 11:48 Dose: 100 mg Glucagon (Glucagen) 1 mg IM ONCE PRN PRN Reason: Hypoglycemia Stop: 11/10/18 12:49 Glucose (Gluctose) 15 gm PO ONCE PRN PRN Reason: Hypoglycemia Stop: 11/10/18 12:49 Glucose (Gluctose) 30 gm PO ONCE PRN PRN Reason: Hypoglycemia Stop: 11/10/18 12:49 Lactated Ringer's (Lactated Ringers) 1,000 mls @ 100 mls/hr IVC .Q10H [facility] Stop: 11/10/18 12:46 Last Admin: 05/12/18 09:26 Dose: 100 mls/hr Dextrose (Dextrose 5%) 1,000 mls @ 100 mls/hr IVC .Q10H PRN PRN Reason: HYPOGLYCEMIA Stop: 11/10/18 12:49 Pantoprazole Sodium 40 mg/ (Sodium Chloride) 100 mls @ 20 mls/hr IVC .Q5H [facility] Stop: 11/10/18 13:16 Last Admin: 05/12/18 11:48 Dose: 20 mls/hr Insulin Human Lispro (Humalog) 0 units SQ Q6HR [facility] PRN Reason: Protocol Stop: 11/10/18 18:01 Last Admin: 05/12/18 12:19 Dose: Not Given Naloxone HCl (Narcan) 0.4 mg IVP Q2MIN PRN PRN Reason: SEE COMMENTS Stop: 11/10/18 11:29 Nicotine (Nicoderm) 7 mg TD DAILY [facility] PRN Reason: Protocol Stop: 11/10/18 12:46 Last Admin: 05/12/18 09:26 Dose: 7 mg Ondansetron HCl (Zofran) 4 mg IVP Q8HR PRN; Protocol PRN Reason: Nausea And Vomiting Stop: 11/10/18 12:44 Simvastatin (Zocor) 10 mg PO HS [facility] PRN Reason: Protocol Stop: 11/11/18 21:01 Sucralfate (Carafate) 1 gm PO QIDAC [facility] Stop: 11/11/18 11:31 Last Admin: 05/12/18 11:48 Dose: 1 gm Laboratory Tests 05/11/18 05/11/18 05/11/18 11:50 11:50 17:44 Hgb 6.9 L Creatinine Troponin I 0.08 H* 0.16 H* 05/11/18 05/12/18 05/12/18 21:41 01:18 13:27 Hgb 8.4 L Creatinine 0.93 Troponin I 0.28 H* 05/12/18 13:27 Hgb Creatinine Troponin I 0.45 H* - Imaging and Cardiology Chest Xray: report reviewed Echo: report reviewed - EKG Interpretation EKG results cardiology: personally reviewed (ECG with SR, HR 76. Sinus pause noted.), other (Telemetry reviewed with average HR previous 12 hours noted to be 74, SR. PVCs and PACS noted. Longest pause 1.4 seconds.) Consult Discharge Plan - Plan Referrals: Cherri Amado, [facility]ER [Primary Care Provider] - <Lesly A - Last Filed: 05/12/18 17:49> Date of Encounter: 05/12/18 - Attending Attestation I interviewed and examined the patient independently at the bedside and agree with the cardiology [facility]ER's documentation. Demand ischemia secondary to GI bleed with severe anemia. Cardiac ischemic workup as outpatient once GI bleed resolves. Assessment and Plan Discussion w patient/family: The assessment and plan as outlined above was discussed with the patient and/or family members who expressed understanding and agreement. All questions were answered. Thank you for involving us in the care of your patient. Please call with any questions. History of Present Illness History of present illness: Mr. Apple is a 82 year old male All Systems Review: The remainder of the systems were reviewed and are negative Physical Examination Vital Signs, Last 4 Hours Temp Pulse Resp BP Pulse Ox 05/12/18 17:18 97.4 F L 74 20 136/55 98 05/12/18 15:41 98.4 F 68 14 124/57 97 Results 05/12/18 13:27 05/12/18 01:18 Lab Results 05/11/18 05/11/18 05/11/18 17:44 21:41 21:41 WBC 9.3 Hgb 7.2 L Hct 22.0 L Plt Count 223 INR Sodium Potassium Chloride Carbon Dioxide BUN Creatinine Glucose Calcium Magnesium Total Bilirubin AST ALT Alkaline Phosphatase Troponin I 0.16 H* 0.28 H* TSH 09/19/18 09/19/18 09/19/18 01:18 01:18 01:18 WBC Hgb Hct Plt Count INR 1.0 Sodium 140 140 Potassium 4.0 4.0 Chloride 112 H 112 H Carbon Dioxide 24 25 BUN 44 H 43 H Creatinine 0.93 0.97 Glucose 97 98 Calcium 8.3 L 8.2 L Magnesium 1.9 Total Bilirubin 0.5 AST 12 L ALT 6 L Alkaline Phosphatase 53 Troponin I [facility] 05/12/18 05/12/18 05/12/18 01:18 04:28 08:06 WBC 7.6 Hgb 8.0 L 7.9 L Hct 24.1 L 24.3 L Plt Count 185 INR Sodium Potassium Chloride Carbon Dioxide BUN Creatinine Glucose Calcium Magnesium Total Bilirubin AST ALT Alkaline Phosphatase Troponin I [facility] 1.231 05/12/18 05/12/18 13:27 13:27 WBC Hgb 8.4 L Hct 26.6 L Plt Count INR Sodium Potassium Chloride Carbon Dioxide BUN Creatinine Glucose Calcium Magnesium Total Bilirubin AST ALT Alkaline Phosphatase Troponin I 0.45 H* [facility]
[2018-05-12 21:15] LABS: Hematocrit 22.1 % (37.5-50.1); Hemoglobin 7.2 g/dL (12.9-16.9)
[2018-05-13] MEDS: Pantoprazole 40 MG in 0.9 % Sodium Chloride Mini Bag 100 ML IVC SCH ×3 (00:15→19:10)
[2018-05-13 04:28] LABS: Basophils % 0.4 %; Eosinophils # 0.1 K/mcL (0.0-0.6); Eosinophils % 1.7 %; Hematocrit 21.6 % (37.5-50.1); Lymphocytes # 1.2 K/mcL (0.6-4.6); Lymphocytes % 22.4 %; Mean Corpuscular HGB Conc 32.4 g/dL (31.6-35.5); Mean Corpuscular Hemoglobin 29.5 pg (28.0-33.3); Mean Corpuscular Volume 91.1 fL (83.0-100.0); Monocytes # 0.7 K/mcL (0.0-1.3); Monocytes % 12.3 %; Neutrophils # 3.5 K/mcL (1.6-8.9); Platelet Count 179 K/mcL (140-400); Red Blood Count 2.37 M/mcL (4.19-5.50); Red Cell Distribution Width 16.8 % (11.5-14.5); Segmented Neutrophils % 63.2 %
[2018-05-13 04:52] LABS: BUN/Creatinine Ratio 26 (6-26); Blood Urea Nitrogen 22 mg/dL (8-23); Calcium 8.3 mg/dL (8.6-10.3); Carbon Dioxide 27 mEq/L (23-29); Chloride 111 mEq/L (98-107); Glucose 99 mg/dL (70-105); Magnesium 1.7 mg/dL (1.6-2.6); Osmolality,Calculated 295 (280-300); Potassium 3.9 mEq/L (3.5-5.1); Sodium 141 mEq/L (136-145); eGFR For Non-African Americans > 60 (> 60)
[2018-05-13] MEDS: Insulin LISPRO 300 UNITS/3 ML VIAL SQ SCH ×3 (05:05→18:50)
[2018-05-13] MEDS: Ringers Solution, Lactated 1,000 ML IVC SCH ×2 (05:07→10:14)
[2018-05-13] MEDS ORDERED: Isovue-370 500 ML INFUS..BTL IV ONE (08:18)
--- NOTE | 2018-05-13 08:22 | General Surgery Progress Note ---
Date of Encounter: 05/13/18 Time of Encounter: 07:15 - Assessment and Plan (1) Ulcer at site of surgical anastomosis following bypass of stomach Current Visit: Yes Status: Acute History of antrectormy and Bill Sanchez II "decades ago." Noted EGD 05/12 for UGIB , is found to have ulcer at the anastomsis site concerning for cancer. Plan: CT abdomen and pelvis without AND with (p.o./IV) contrast today to better evaluate concern for malignancy. CLD ok for now IVF Supportive care and discomfort management Activity as tolerated GI and DVT prophylaxis Serial abdominal exams we will continue to follow along with you. Further recommendations pending. (2) Upper GI bleeding Current Visit: Yes Status: Acute see above Subjective Patient reports: no new complaints, feels better, still having pain, pain is less, voiding w/o difficulty, flatus, no bowel movement, afebrile Objective Vital Signs - Last 8 Hours Temp Pulse Resp BP Pulse Ox 05/13/18 07:46 98.0 F 70 19 137/56 95 05/13/18 03:39 97.9 F 53 17 132/52 94 Intake and Output 05/12/18 05/13/18 05/13/18 23:59 07:59 15:59 Intake Total 1200 / 1200 1100 / 1100 Balance 1200 / 1200 1100 / 1100 Intake: IV Fluids 1200 / 1200 1100 / 1100 Protonix 40 MG In 0.9 % Sodium 200 / 200 100 / 100 Chloride (Mini-Bag +) 100 ML @ 20 mls/hr IVC .Q5H [facility] Rx#: [id number] Lactated Ringers 1,000 ML @ 100 1000 / 1000 1000 / 1000 mls/hr IVC .Q10H [facility] Rx#: [id number] Other: Weight 68.1 kg Blood Glucose* 105 104 - General physical appearance well developed, no distress, cachectic, chronically ill (appearing, thin and emaciataed) - Eyes normal ocular movement - ENT normal nares, normal mucosa, decreased hearing, dentures, Other - Neck Neck exam: no lymphadectomy - Respiratory normal expansion, normal respiratory effort, clear to auscultation - Cardiovascular Cardiovascular exam: Present: RRR - Abdomen Abdomen: Present: bowel sounds present, soft, non tender - Integumentary no rash - Neurologic normal coordination, normal sensation - Musculoskeletal normal posture - Psychiatric oriented to time, oriented to person, oriented to place, speech is normal - Labs 05/13/18 04:10 05/13/18 04:10 Diabetes panel 05/12/18 05/12/18 05/13/18 Range/Units 08:06 08:06 04:10 Sodium 141 (136-145) mEq/L Potassium 3.9 (3.5-5.1) mEq/L Chloride 111 H (98-107) mEq/L Carbon Dioxide 27 (23-29) mEq/L BUN 22 (8-23) mg/dL Creatinine 0.86 (0.70-1.30) mg/dL Glucose 99 (70-105) mg/dL Hemoglobin A1c 5.3 ( - 5.6) % Calcium 8.3 L (8.6-10.3) mg/dL Triglycerides 135 (< 150) mg/dL HDL Cholesterol 29 L (40-59) mg/dL Thyroid panel 05/12/18 Range/Units 08:06 TSH 1.231 (0.340-5.600) mcIU/mL Calcium panel 05/13/18 Range/Units 04:10 Calcium 8.3 L (8.6-10.3) mg/dL Pituitary panel 05/12/18 05/13/18 Range/Units 08:06 04:10 Sodium 141 (136-145) mEq/L Potassium 3.9 (3.5-5.1) mEq/L Chloride 111 H (98-107) mEq/L Carbon Dioxide 27 (23-29) mEq/L BUN 22 (8-23) mg/dL Creatinine 0.86 (0.70-1.30) mg/dL Glucose 99 (70-105) mg/dL Calcium 8.3 L (8.6-10.3) mg/dL TSH 1.231 (0.340-5.600) mcIU/mL Adrenal panel 05/13/18 Range/Units 04:10 Sodium 141 (136-145) mEq/L Potassium 3.9 (3.5-5.1) mEq/L Chloride 111 H (98-107) mEq/L Carbon Dioxide 27 (23-29) mEq/L BUN 22 (8-23) mg/dL Creatinine 0.86 (0.70-1.30) mg/dL Glucose 99 (70-105) mg/dL Calcium 8.3 L (8.6-10.3) mg/dL - VTE Reasons for not Prescribing Prophylaxis: Medical contraindication Documentation of Mechanical Device: Intermittent pneumatic compression device Consult Discharge Plan - Plan Referrals: Cherri Amado CNP [Primary Care Provider] -
--- NOTE | 2018-05-13 08:25 | Internal Med Progress Note ---
Hospitalist Progress Note - Encounter Date of Encounter: 05/13/18 Time of Encounter: 10:10 - Subjective Interval History: awake with son present. no abd pain, denies any further emesis or noted bleeding. no nausea. tolerating clear liquid diet without issue. no cp,pressure , palpitations, sob. being transfused blood currently for hgb drop. denies lightheadedness, dizziness, syncope or fatigue. - Exam Vitals: Temp Pulse Resp BP Pulse Ox 98.0 F 70 19 137/56 95 05/13/18 07:46 05/13/18 07:46 05/13/18 07:46 05/13/18 07:46 05/13/18 07:46 Exam: General: awake, alert, appears stated age HEENT:EOM intact, pupils equal, round, moist mucus membranes, + pallor of conjunctiva, poor dentition Cardiovascular:regular rate and rhythm, normal S1 & S2, no rubs, murmurs or gallops. No JVD. radial pulses 2+, no lower extremity edema Lungs:Normal breath sounds, no wheezes, or crackles. Normal respiratory effort on RA Abdomen:Soft, non-tender, non-distended, no rigidity, decreased bowel sounds, no masses or HSM appreciated Neurological: AAOx3 Skin: no rash, no jaundice , no pallor - Assessment and Plan (1) Upper GI bleeding Current Visit: Yes Status: Acute Assessment and Plan: 2/2 Gastric Ulcer, found to be oozing on EGD and concerning for malignancy -CT a/p no acute findings, diverticulosis, mild cholelithiasis on review of [facility] from [facility] -hgb 7.9, plt 304 at OSH, inr 1, fobt neg on OSH record review -orthostat + on admit -IVFs -2 unit prbc 05/11 with hgb increase to 8 -zofran prn -hold home asa and any pharm vte ppx -gi following -05/[address] Joseph, with large anastomotic ulcer suspicious for malignancy with bxs taken and hemo spray to ulcer to control bleeding -05/12 d/w GI--cont ppi gtt for addl 48 hrs, will need to await biopsies, ok to advance to clear liquid diet, gen surg consulted, I personally discussed all findings with pt and his daughter Luna Foote and agreeable to current treatment/ plan -05/13 hgb drop in last 24 hrs to 7, no active bleeding noted--see anemia details below, 2 unit prbc -surgery following -repeat ct a/p obtained 05/13 showed gastric wall thickening (2) Elevated troponin Current Visit: Yes Status: Acute Assessment and Plan: Most likely Type II NSTEMI in setting of GI bleed, acute blood loss anemia, though given his pmhx/tobacco use, cannot rule out Type I without LHC -0.1 at OSH, asx, no ischemic ekg changes on review of EKG -trop peak at 0.45 and down trended -cont tele, keep hgb >8 -resume home statin but cannot resume home ASA or start hep gtt given GIB -echo this admit with EF 60%, mild LVH, mild diastolic dysfunction not graded, , hypokinetic basal inferior wall cards following -----NSTEMI II in the setting of GI bleed, acute blood loss anemia. No cardiac rehab consult is warranted. --With wall motion abnormality on echo ideally would recommend LHC, however patient is not a candidate with acute GI bleed. Can consider outpatient ischemic evaluation. will have pt f/u with Dr Hunter outpt ---pt daughter Luna Foote was contacted and updated to plan 05/12 (3) Acute blood loss anemia Current Visit: Yes Status: Acute Assessment and Plan: gb drop to 6.9 and previously 7.8 at osh -no recent priors to compare to--is one ferrous sulfate at home? -serial h/hs -2 units prbc 05/11 - 2 units prbc 05/13 -scds only for vte ppx -05/13 it appears pt hgb dropped to 7.4 on late night check 05/12, he was not transfused prbc and reason unknown as to why as staff aware that required prbc hgb <8, discussed with daytime RN urgently this morning, as hgb now 7--2 units stat prbc, 20 mg IV lasix once after, will trend q 8h hgb beginning one hour post transfusion, RN did not get in sign out any signs of bleeding overnight, pt denies bleeding (4) KAYE (acute kidney injury) Current Visit: Yes Assessment and Plan: Resolved creat at osh 1.49, no recent baseline to compare appeared dry on exam Creat now normal - check UA was ordered but never collected,resolved with IVFs, avoid nephro toxic agents (5) Essential hypertension Current Visit: No Status: Chronic Assessment and Plan: BP currently normotensive, + orthostats on admit -in setting of gi bleed and kaye, holding lisinopril/hctz 20/25 mg and cont to monitor bp -05/13 bps remain at goal without bp meds, cont to monitor (6) Mixed hyperlipidemia Current Visit: No Status: Chronic Assessment and Plan: cont statin (7) Tobacco abuse Current Visit: No Status: Chronic Assessment and Plan: education nicotine patch (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 MRI kidneys without with gadolinium recommended for additional characterization. -MRI kidneys without osvaldo ordered as d/w MRI department (10) Right middle lobe pulmonary nodule Current Visit: Yes Status: Acute Assessment and Plan: Incidental finding on CT a/p shows right middle lobe 4 mm nodule in setting of this high risk patient this will need CT follow up in 12 months DVT Prophylaxis: scd as above - Time Spent with Patient Total time spent is greater than 50% in coordination of care (as documented) at patient's floor/unit and/or counseling patient: 25 - 35 minutes Plan of Care Discussed with: patient Internal Medicine: Result - Labs CBC & Chem 7: 05/13/18 04:10 05/13/18 04:10 Labs: Short CBC 05/12/18 05/12/18 05/13/18 Range/Units 13:27 20:46 04:10 WBC 5.5 (4.3-11.1) K/mcL Hgb 8.4 L 7.2 L 7.0 L (12.9-16.9) g/dL Hct 26.6 L 22.1 L 21.6 L (37.5-50.1) % Plt Count 179 (140-400) K/mcL Neutrophils # 3.5 (1.6-8.9) K/mcL BMP 05/13/18 04:10 Sodium 141 Potassium 3.9 Chloride 111 H Carbon Dioxide 27 BUN 22 Creatinine 0.86 Glucose 99 Calcium 8.3 L Cardiac Enzymes 05/12/18 05/12/18 05/13/18 Range/Units 13:27 20:46 04:10 Troponin I 0.45 H* 0.37 H* 0.24 H* (< 0.04) ng/mL - ABG Interpretation ABG results: PT/INR, D-dimer PT 11.1 Seconds (9.4-12.1) 05/12/18 01:18 - Impressions Impressions Echocardiogram 05/12/18 07:56 Impressions: LVEF 60%. Normal LV chamber size and overall function. Mild concentric left ventricular hypertrophy. Mild segmental left ventricular systolic dysfunction. Mild left ventricular diastolic dysfunction. Normal right ventricular structure and function. No evidence of pulmonary hypertension. No significant valvular dysfunction. Left Ventricular Wall Motion: Rest Echo Findings The basal inferior wall was hypokinetic. All other wall segments showed normal motion. Findings: Study Quality * Technically adequate exam. ECG Findings * Normal sinus rhythm. Left Ventricle * LVEF 60%. * Normal LV chamber size and overall function. * Mild concentric left ventricular hypertrophy. * Mild left ventricular diastolic dysfunction. * Mild segmental left ventricular systolic dysfunction. Right Ventricle * Normal right ventricular structure and function. Left Atrium * Normal left atrial size. Right Atrium * Normal right atrial size. Aortic Valve * Trileaflet aortic valve with normal function. * No aortic stenosis. * No aortic regurgitation. Mitral Valve * Mild mitral annular calcification * No mitral stenosis. * No mitral regurgitation. Tricuspid Valve * Normal tricuspid valve structure and function. * Trace tricuspid regurgitation. * No evidence of pulmonary hypertension. Pulmonic Valve * Pulmonic valve is not well visualized. * No pulmonic regurgitation. Aorta * Normally sized aortic root. Pericardium * The pericardium appears normal. IVC * Normal IVC dimensions and inspiratory collapse. Pulmonary Artery * Normal visualized portions of the main pulmonary artery. Retroperitoneum Ultrasound 05/12/18 21:00 IMPRESSION: 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 MRI kidneys without with gadolinium recommended for additional characterization. Unremarkable ultrasound of the urinary bladder. D/ / Heriberto Damon / Heriberto Damon Interpreting Provider: Heriberto Damon - VTE Reasons for not Prescribing Prophylaxis: Medical contraindication Documentation of Mechanical Device: Intermittent pneumatic compression device Consult Discharge Plan - Plan Referrals: Cherri Amado CNP [Primary Care Provider] -
[2018-05-13] MEDS ORDERED: 0.9 % Sodium Chloride 250 ML IVC SCH (08:30)
[2018-05-13 08:57] LABS: % Iron Saturation 9 % (20-55); Iron 25 mcg/dL (65-175); Transferrin 201 mg/dL (203-362)
[2018-05-13 09:09] LABS: Carcinoembryonic Antigen 4.3 ng/mL (Less than 5.0)
[2018-05-13] MEDS ORDERED: 0.9 % Sodium Chloride 250 ML ONE ×2 (09:35→15:56)
[2018-05-13] MEDS ORDERED: Furosemide 20 MG/2 ML VIAL IVP ONE (12:00)
[2018-05-13] MEDS ORDERED: Isovue-370 500 ML INFUS..BTL PO ONE (12:32)
[2018-05-13] MEDS: Iron Sucrose Complex 250 MG in 0.9 % Sodium Chloride 250 ML IVPB SCH (12:47)
[2018-05-13] MEDS: Sucralfate 1 GM TABLET PO SCH ×3 (12:47→21:34)
[2018-05-13] MEDS ORDERED: ISOVUE-370 100 ML INFUS..BTL PO ONE (13:03)
[2018-05-13] MEDS: Fluconazole 100 MG TABLET PO SCH (13:05)
[2018-05-13] MEDS: Nicotine 7 MG PATCH.TD24 TD SCH (13:05)
[2018-05-13 16:16] LABS: Hematocrit 22.5 % (37.5-50.1); Hemoglobin 7.5 g/dL (12.9-16.9)
[2018-05-13 19:56] LABS: Hematocrit 24.8 % (37.5-50.1); Hemoglobin 8.3 g/dL (12.9-16.9)
[2018-05-13] MEDS ORDERED: Insulin LISPRO 300 UNITS/3 ML VIAL SQ SCH (21:00)
[2018-05-14 00:12] LABS: Bilirubin,Urine Negative (Negative); Blood,Urine Moderate (Negative); Clarity,Urine Clear (Clear); Color,Urine Yellow (Yellow); Glucose,Urine (UA) Normal (Normal); Ketones,Urine Negative (Negative); Leukocyte Esterase,Urine Negative (Negative); Nitrite,Urine Negative (Negative); Protein,Urine Negative (Neg-Trace); Specific Gravity,Urine 1.005 (1.010-1.025); Urobilinogen,Urine Normal (Normal)
[2018-05-14 00:50] LABS: Hematocrit 25.9 % (37.5-50.1); Hemoglobin 8.5 g/dL (12.9-16.9)
[2018-05-14] MEDS: Ringers Solution, Lactated 1,000 ML IVC SCH (05:39)
[2018-05-14 06:12] LABS: Basophils % 0.5 %; Eosinophils # 0.1 K/mcL (0.0-0.6); Eosinophils % 2.4 %; Hematocrit 25.8 % (37.5-50.1); Hemoglobin 8.5 g/dL (12.9-16.9); Immature Granulocytes % 0.4 % (0-4); Lymphocytes % 17.8 %; Mean Corpuscular HGB Conc 32.9 g/dL (31.6-35.5); Mean Corpuscular Hemoglobin 29.7 pg (28.0-33.3); Mean Corpuscular Volume 90.2 fL (83.0-100.0); Mean Platelet Volume 10.6 fL (9.4-12.4); Monocytes # 0.8 K/mcL (0.0-1.3); Monocytes % 14.2 %; Neutrophils # 3.6 K/mcL (1.6-8.9); Platelet Count 186 K/mcL (140-400); Red Blood Count 2.86 M/mcL (4.19-5.50); Red Cell Distribution Width 15.8 % (11.5-14.5); Segmented Neutrophils % 64.7 %
[2018-05-14 07:00] LABS: Alanine Aminotransferase 7 Units/L (7-52); Albumin 3.1 g/dL (3.5-5.7); Albumin/Globulin Ratio 1.6 (1.1-2.2); Alkaline Phosphatase 61 Units/L (34-104); Aspartate Amino Transferase 14 Units/L (13-39); BUN/Creatinine Ratio 20 (6-26); Bilirubin,Total 0.6 mg/dL (0.3-1.0); Blood Urea Nitrogen 18 mg/dL (8-23); Calcium 8.6 mg/dL (8.6-10.3); Carbon Dioxide 30 mEq/L (23-29); Chloride 108 mEq/L (98-107); Globulin 1.9 g/dL (2.4-3.5); Glucose 98 mg/dL (70-105); Magnesium 1.6 mg/dL (1.6-2.6); Osmolality,Calculated 294 (280-300); Phosphorous 2.8 mg/dL (2.7-4.5); Potassium 3.7 mEq/L (3.5-5.1); Sodium 141 mEq/L (136-145); eGFR For Non-African Americans > 60 (> 60)
--- NOTE | 2018-05-14 08:34 | Internal Med Progress Note ---
Hospitalist Progress Note - Encounter Date of Encounter: 05/14/18 Time of Encounter: 09:40 - Subjective Interval History: pt awake and son at bedside. continues to feel ok, no abd pain, no nausea, denies any bleeding, emesis. No lightheadedness, sob. - Exam Vitals: Temp Pulse Resp BP Pulse Ox 98.9 F 67 17 133/65 97 05/14/18 07:55 05/14/18 07:55 05/14/18 07:55 05/14/18 07:55 05/14/18 07:55 Exam: General: awake, alert, appears stated age HEENT: moist mucus membranes, no pallor of conjunctiva, poor dentition Cardiovascular:regular rate and rhythm, normal S1 & S2, no rubs, murmurs or gallops. Lungs:Normal breath sounds, no wheezes, or crackles. Normal respiratory effort on RA Abdomen:Soft, non-tender, non-distended, no rigidity, decreased bowel sounds, no masses or HSM appreciated Neurological: AAOx3 Skin: no rash, no jaundice , no pallor - Assessment and Plan (1) Upper GI bleeding Current Visit: Yes Status: Acute Assessment and Plan: 2/2 Gastric Ulcer, found to be oozing on EGD and concerning for malignancy CT a/p no acute findings, diverticulosis, mild cholelithiasis on review of CT from [facility] hgb 7.9, plt 304 at OSH, inr 1, fobt neg on OSH record review orthostat + on admit -IVFs -hold home asa and any pharm vte ppx -05/11 2 unit prbc -05/[address] Joseph, with large anastomotic ulcer suspicious for malignancy with bxs taken and hemo spray to ulcer to control bleeding -05/12 d/w GI--cont ppi gtt for addl 48 hrs, will need to await biopsies, ok to advance to clear liquid diet, gen surg consulted, I personally discussed all findings with pt and his daughter Luna Foote and agreeable to current treatment/ plan -05/13 hgb drop in last 24 hrs to 7, no active bleeding noted--see anemia details below, 2 unit prbc -05/13repeat ct a/p obtained showed gastric wall thickening -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 and surgery planning subtotal gastrectomy on Thursday gi and surg following (2) Elevated troponin Current Visit: Yes Status: Acute Assessment and Plan: Most likely Type II NSTEMI in setting of GI bleed, acute blood loss anemia, though given his pmhx/tobacco use, cannot rule out Type I without LHC -0.1 at OSH, asx, no ischemic ekg changes on review of EKG -trop peak at 0.45 and down trended -cont tele, keep hgb >8 -resume home statin but cannot resume home ASA or start hep gtt given GIB -echo this admit with EF 60%, mild LVH, mild diastolic dysfunction not graded, , hypokinetic basal inferior wall cards following -No cardiac rehab consult is warranted. With wall motion abnormality on echo ideally would recommend LHC, however patient is not a candidate with acute GI bleed. Can consider outpatient ischemic evaluation. will have pt f/u with Dr Hunter outpt -05/12 pt daughter Luna Foote was contacted and updated to plan (3) Acute blood loss anemia Current Visit: Yes Status: Acute Assessment and Plan: Acute Blood loss Anemia 2/2 GIB -hgb as low as 6.9, requiring multiple transfusions -2 units prbc 05/11 - 2 units prbc 05/13 -05/13 it appears pt hgb dropped to 7.4 on late night check 05/12, he was not transfused prbc and reason unknown as to why as staff aware that required prbc hgb <8, discussed with daytime RN urgently this morning, as hgb now 7--2 units stat prbc, 20 mg IV lasix once after, will trend q 8h hgb beginning one hour post transfusion, RN did not get in sign out any signs of bleeding overnight, pt denies bleeding -05/14 hgb stable 8.5 -serial h/h -scds only (4) Essential hypertension Current Visit: No Status: Chronic Assessment and Plan: BP currently normotensive, + orthostats on admit -in setting of gi bleed and kaye, holding lisinopril/hctz 20/25 mg and cont to monitor bp - bps remain at goal without bp meds, cont to monitor (5) KAYE (acute kidney injury) Current Visit: Yes Assessment and Plan: Resolved creat at osh 1.49, no recent baseline to compare appeared dry on exam Creat now normal - check UA was ordered but never collected,resolved with IVFs, avoid nephro toxic agents (6) Mixed hyperlipidemia Current Visit: No Status: Chronic Assessment and Plan: cont statin (7) Tobacco abuse Current Visit: No Status: Chronic Assessment and Plan: education nicotine patch (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 MRI kidneys without with gadolinium recommended for additional characterization. -MRI kidneys without osvaldo ordered as d/w MRI department, pending (10) Right middle lobe pulmonary nodule Current Visit: Yes Status: Acute Assessment and Plan: Incidental finding on CT a/p shows right middle lobe 4 mm nodule in setting of this high risk patient this will need CT follow up in 12 months DVT Prophylaxis: scd - Time Spent with Patient Total time spent is greater than 50% in coordination of care (as documented) at patient's floor/unit and/or counseling patient: 25 - 35 minutes Plan of Care Discussed with: patient Internal Medicine: Result - Labs CBC & Chem 7: 05/14/18 05:56 05/14/18 05:56 Labs: Short CBC 05/13/18 05/13/18 05/14/18 Range/Units 13:57 19:38 00:30 WBC (4.3-11.1) K/mcL Hgb 7.5 L 8.3 L 8.5 L (12.9-16.9) g/dL Hct 22.5 L 24.8 L 25.9 L (37.5-50.1) % Plt Count (140-400) K/mcL Neutrophils # (1.6-8.9) K/mcL 05/14/18 Range/Units 05:56 WBC 5.5 (4.3-11.1) K/mcL Hgb 8.5 L (12.9-16.9) g/dL Hct 25.8 L (37.5-50.1) % Plt Count 186 (140-400) K/mcL Neutrophils # 3.6 (1.6-8.9) K/mcL BMP 05/13/18 05/14/18 04:10 05:56 Sodium 141 141 Potassium 3.9 3.7 Chloride 111 H 108 H Carbon Dioxide 27 30 H BUN 22 18 Creatinine 0.86 0.92 Glucose 99 98 Calcium 8.3 L 8.6 Liver Function 05/14/18 Range/Units 05:56 Total Bilirubin 0.6 (0.3-1.0) mg/dL AST 14 (13-39) Units/L ALT 7 (7-52) Units/L Alkaline Phosphatase 61 (34-104) Units/L Albumin 3.1 L (3.5-5.7) g/dL Urine 05/14/18 Range/Units 00:07 Urine Color Yellow (Yellow) Urine Clarity Clear (Clear) Urine pH 7.0 (5.0-8.0) pH Units Ur Specific [place] 1.005 L (1.010-1.025) Urine Protein Negative (Neg-Trace) mg/dL Urine Glucose (UA) Normal (Normal) mg/dL - ABG Interpretation ABG results: PT/INR, D-dimer PT 11.1 Seconds (9.4-12.1) 05/12/18 01:18 - Impressions Impressions Abdomen/Pelvis CT 05/13/18 12:00 IMPRESSION: No acute inflammatory process. No bowel obstruction. Gastric wall thickening versus incomplete distension. Correlate with endoscopy as clinically indicated. Sigmoid diverticulosis without acute diverticulitis. 4 mm right middle lobe nodule. Follow-up based on guidelines below. RECOMMENDATIONS: Fleischner Society guidelines for follow-up and management of incidentally detected pulmonary nodules: Single Solid Nodule: Nodule size less than 6 mm In a low-risk patient, no routine follow-up. In a high-risk patient, optional CT at 12 months. - Low risk patients include individuals with minimal or absent history of smoking and other known risk factors. - High risk patients include individuals with a history or smoking or known risk factors. Radiology 2017 http://pubs.rsna.org/doi/full/10.1148/radiol.3533073381 D/ / 05/13/2018 13:07:01 Jules Haq MD / [email or web address] Interpreting Provider: Jules Haq MD - VTE Reasons for not Prescribing Prophylaxis: Medical contraindication Documentation of Mechanical Device: Intermittent pneumatic compression device Consult Discharge Plan - Plan Referrals: Cherri Amado CNP [Primary Care Provider] -
[2018-05-14] MEDS: Insulin LISPRO 300 UNITS/3 ML VIAL SQ SCH ×4 (10:09→20:10)
--- NOTE | 2018-05-14 10:26 | General Surgery Progress Note ---
<Jarocho Swan P - Last Filed: 05/14/18 10:23> Date of Encounter: 05/14/18 Time of Encounter: 08:30 - Assessment and Plan (1) Ulcer at site of surgical anastomosis following bypass of stomach Current Visit: Yes Status: Acute Plan: -IVF, suppourtive care, discomfort management is fine -continue PPI prophylaxis -will plan for subtotal gastrectomy surgery on thursday (2) Upper GI bleeding Current Visit: Yes Status: Acute hemoglobin and transfusions per primary team Subjective Patient reports: no new complaints, feels better, pain is less, voiding w/o difficulty, flatus, afebrile Objective Vital Signs - Last 8 Hours Temp Pulse Resp BP Pulse Ox 05/14/18 07:55 98.9 F 67 17 133/65 97 05/14/18 05:53 98.5 F 77 18 149/59 95 Intake and Output 05/13/18 05/14/18 05/14/18 23:59 07:59 15:59 Intake Total 1949 100 / 100 240 / 240 Output Total 1000 / 1000 Balance 1949 -900 / -900 240 / 240 Intake: IV Fluids 1100 / 1100 100 / 100 Protonix 40 MG In 0.9 % Sodium 100 / 100 100 / 100 Chloride (Mini-Bag +) 100 ML @ 20 mls/hr IVC .Q5H [facility] Rx#: [id number] Lactated Ringers 1,000 ML @ 75 1000 / 1000 mls/hr IVC .[id number] [facility] Rx#: [id number] Oral 500 / 500 240 / 240 Blood Product 350 / 350 Rbcs Leuko Poor As-1 Unit 350 / 350 [id number] Output: Urine 1000 / 1000 Other: Meal Dinner Breakfast Percent of Meal Consumed 0% 100% # Voids 1 1 Weight 68 kg Blood Glucose* 101 111 Patient Weight 05/14/18 23:59 Weight 68 kg - General physical appearance no distress, cachectic, chronically ill - Eyes PERRL, normal ocular movement - Neck Neck exam: trachea midline - Respiratory normal respiratory effort, clear to auscultation - Cardiovascular Cardiovascular exam: Present: RRR - Abdomen Abdomen: Present: bowel sounds present, soft, non tender - Integumentary no rash - Neurologic normal coordination, normal sensation - Musculoskeletal normal posture - Psychiatric oriented to time, oriented to person, oriented to place, speech is normal, memory intact - Labs 05/14/18 05:56 05/14/18 05:56 Diabetes panel 05/14/18 Range/Units 05:56 Sodium 141 (136-145) mEq/L Potassium 3.7 (3.5-5.1) mEq/L Chloride 108 H (98-107) mEq/L Carbon Dioxide 30 H (23-29) mEq/L BUN 18 (8-23) mg/dL Creatinine 0.92 (0.70-1.30) mg/dL Glucose 98 (70-105) mg/dL Calcium 8.6 (8.6-10.3) mg/dL AST 14 (13-39) Units/L ALT 7 (7-52) Units/L Alkaline Phosphatase 61 (34-104) Units/L Albumin 3.1 L (3.5-5.7) g/dL Calcium panel 05/14/18 Range/Units 05:56 Calcium 8.6 (8.6-10.3) mg/dL Phosphorus 2.8 (2.7-4.5) mg/dL Albumin 3.1 L (3.5-5.7) g/dL Pituitary panel 05/14/18 Range/Units 05:56 Sodium 141 (136-145) mEq/L Potassium 3.7 (3.5-5.1) mEq/L Chloride 108 H (98-107) mEq/L Carbon Dioxide 30 H (23-29) mEq/L BUN 18 (8-23) mg/dL Creatinine 0.92 (0.70-1.30) mg/dL Glucose 98 (70-105) mg/dL Calcium 8.6 (8.6-10.3) mg/dL Adrenal panel 05/14/18 Range/Units 05:56 Sodium 141 (136-145) mEq/L Potassium 3.7 (3.5-5.1) mEq/L Chloride 108 H (98-107) mEq/L Carbon Dioxide 30 H (23-29) mEq/L BUN 18 (8-23) mg/dL Creatinine 0.92 (0.70-1.30) mg/dL Glucose 98 (70-105) mg/dL Calcium 8.6 (8.6-10.3) mg/dL Total Bilirubin 0.6 (0.3-1.0) mg/dL AST 14 (13-39) Units/L ALT 7 (7-52) Units/L Alkaline Phosphatase 61 (34-104) Units/L Albumin 3.1 L (3.5-5.7) g/dL - VTE Reasons for not Prescribing Prophylaxis: Medical contraindication Documentation of Mechanical Device: Intermittent pneumatic compression device Consult Discharge Plan - Plan Referrals: Cherri Amado [facility] [Primary Care Provider] - <Yoly Maddenn Flakita - Last Filed: 05/17/18 09:20> Date of Encounter: 05/14/18 Objective Vital Signs - Last 8 Hours Temp Pulse Resp BP Pulse Ox 05/17/18 07:25 98.1 F 65 18 136/53 96 05/17/18 03:51 98.0 F 77 16 136/52 92 Intake and Output 05/16/18 05/17/18 05/17/18 23:59 07:59 15:59 Intake Total 350 / 350 250 / 250 Output Total 1000 / 1000 900 / 900 Balance -650 / -650 -650 / -650 Intake: IV Fluids 250 / 250 0.9 % Sodium Chloride 250 ML @ 250 / 250 25 mls/hr IVC .Q10H [facility] Rx#: [id number] Blood Product 350 / 350 Rbcs Leuko Poor As-1 Unit 350 / 350 [id number] Output: Urine 1000 / 1000 900 / 900 Other: Blood Glucose* 135 133 - Labs 05/17/18 04:45 05/17/18 04:45 Diabetes panel 05/17/18 Range/Units 04:45 Sodium 142 (136-145) mEq/L Potassium 3.7 (3.5-5.1) mEq/L Chloride 110 H (98-107) mEq/L Carbon Dioxide 28 (23-29) mEq/L BUN 18 (8-23) mg/dL Creatinine 0.78 (0.70-1.30) mg/dL Glucose 98 (70-105) mg/dL Calcium 8.2 L (8.6-10.3) mg/dL Calcium panel 05/17/18 Range/Units 04:45 Calcium 8.2 L (8.6-10.3) mg/dL Phosphorus 2.9 (2.7-4.5) mg/dL Pituitary panel 05/17/18 Range/Units 04:45 Sodium 142 (136-145) mEq/L Potassium 3.7 (3.5-5.1) mEq/L Chloride 110 H (98-107) mEq/L Carbon Dioxide 28 (23-29) mEq/L BUN 18 (8-23) mg/dL Creatinine 0.78 (0.70-1.30) mg/dL Glucose 98 (70-105) mg/dL Calcium 8.2 L (8.6-10.3) mg/dL Adrenal panel 05/17/18 Range/Units 04:45 Sodium 142 (136-145) mEq/L Potassium 3.7 (3.5-5.1) mEq/L Chloride 110 H (98-107) mEq/L Carbon Dioxide 28 (23-29) mEq/L BUN 18 (8-23) mg/dL Creatinine 0.78 (0.70-1.30) mg/dL Glucose 98 (70-105) mg/dL Calcium 8.2 L (8.6-10.3) mg/dL - Attending Attestation I examined this patient and my medical decision-making was reviewed with the Resident Physician. I agree with the documented findings, disposition and treatment plan as described except to the extent set forth below. The patient is seen and evaluated on morning rounds with resident. Pathology came back adenocarcinoma at the anastomotic mass area he will require subtotal gastrectomy with likely Venkatesh-en-Y reconstruction for adenocarcinoma arising at the anastomosis had a post gastrectomy Billroth II reconstruction. Hermilo Madden MD FACS
[2018-05-14] MEDS: Fluconazole 100 MG TABLET PO SCH (11:15)
[2018-05-14] MEDS: Sucralfate 1 GM TABLET PO SCH ×4 (11:15→21:04)
[2018-05-14] MEDS: Nicotine 7 MG PATCH.TD24 TD SCH (11:17)
[2018-05-14] MEDS: Iron Sucrose Complex 250 MG in 0.9 % Sodium Chloride 250 ML IVPB SCH (11:24)
[2018-05-14] MEDS: Pantoprazole 40 MG VIAL IVP SCH ×2 (11:38→18:18)
[2018-05-14] MEDS ORDERED: Lidocaine -MPF 1% 5 ML AMPUL INFILT ONE (13:34)
[2018-05-14] MEDS ORDERED: D10% in Water 500 ML IVC PRN (13:47)
[2018-05-14] MEDS ORDERED: Clinimix E 5%-15% SOLUTION 2,000 ML with MVI, adult with vitamin K 10 ML IVC SCH (17:00)
[2018-05-14 18:41] LABS: Hematocrit 23.3 % (37.5-50.1); Hemoglobin 7.5 g/dL (12.9-16.9)
[2018-05-15] MEDS ORDERED: 0.9 % Sodium Chloride 250 ML ONE ×2 (00:12→04:31)
[2018-05-15] MEDS: Insulin LISPRO 300 UNITS/3 ML VIAL SQ SCH ×6 (00:52→22:20)
[2018-05-15] MEDS: Pantoprazole 40 MG VIAL IVP SCH ×2 (06:29→16:26)
[2018-05-15] MEDS: Sucralfate 1 GM TABLET PO SCH ×4 (08:16→20:44)
[2018-05-15] MEDS: Nicotine 7 MG PATCH.TD24 TD SCH (08:16)
[2018-05-15] MEDS: Fluconazole 100 MG TABLET PO SCH (08:16)
[2018-05-15] MEDS: Iron Sucrose Complex 250 MG in 0.9 % Sodium Chloride 250 ML IVPB SCH (08:17)
--- NOTE | 2018-05-15 09:30 | Internal Med Progress Note ---
Hospitalist Progress Note - Encounter Date of Encounter: 05/15/18 Time of Encounter: 10:00 - Subjective Interval History: awake, family at bedside, pt tearful talking about gastric cancer. Would like to have surgery, family agreeable to his wishes and will be discussing procedure further with surgery today. He remains pain free, no cp, palpitatiosn , sob or presyncope with hgb change. received 2 units prbc overnight. Denies any bleeding, nausea, emesis. - Exam Vitals: Temp Pulse Resp BP Pulse Ox 98.5 F 67 16 155/65 97 05/15/18 07:19 05/15/18 07:19 05/15/18 07:19 05/15/18 07:19 05/15/18 07:19 Exam: General: awake, alert, appears stated age, cachectic HEENT: moist mucus membranes, no pallor of conjunctiva, poor dentition Cardiovascular:regular rate and rhythm, normal S1 & S2, no rubs, murmurs or gallops. no le edema Lungs:Normal breath sounds, no wheezes, or crackles. Normal respiratory effort on RA Abdomen:Soft, non-tender, non-distended, no rigidity, decreased bowel sounds, no masses or HSM appreciated Neurological: AAOx3 Skin: no rash, no jaundice , no pallor - Assessment and Plan (1) Upper GI bleeding Current Visit: Yes Status: Acute Assessment and Plan: 2/2 Gastric Ulcer confirmed Adenocarcnoma CT a/p no acute findings, diverticulosis, mild cholelithiasis on review of CT from [facility] hgb 7.9, plt 304 at OSH, inr 1, fobt neg on OSH record review orthostat + on admit -IVFs -hold home asa and any pharm vte ppx -05/11 2 unit prbc -05/[address] Joseph, with large anastomotic ulcer suspicious for malignancy with bxs taken and hemo spray to ulcer to control bleeding -05/12 d/w GI--cont ppi gtt for addl 48 hrs, will need to await biopsies, ok to advance to clear liquid diet, gen surg consulted, I personally discussed all findings with pt and his daughter Luna Foote and agreeable to current treatment/ plan -05/13 hgb drop in last 24 hrs to 7, no active bleeding noted--see anemia details below, 2 unit prbc -05/13repeat ct a/p obtained showed gastric wall thickening -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 and surgery planning subtotal gastrectomy on Thursday, begin TPN -05/15 again drop in hgb to 7.5 without other evidence of bleeding--see anemia details below -have updated cards to surgery plan for pre op assessment gi and surg following (2) Adenocarcinoma Current Visit: Yes Status: Acute Assessment and Plan: as above (3) Elevated troponin Current Visit: Yes Status: Acute Assessment and Plan: Most likely Type II NSTEMI in setting of GI bleed, acute blood loss anemia, though given his pmhx/tobacco use, cannot rule out Type I without LHC -0.1 at OSH, asx, no ischemic ekg changes on review of EKG -trop peak at 0.45 and down trended -cont tele, keep hgb >8 -resume home statin but cannot resume home ASA or start hep gtt given GIB -echo this admit with EF 60%, mild LVH, mild diastolic dysfunction not graded, , hypokinetic basal inferior wall cards following -No cardiac rehab consult is warranted. With wall motion abnormality on echo ideally would recommend LHC, however patient is not a candidate with acute GI bleed. Can consider outpatient ischemic evaluation. will have pt f/u with Dr Hunter outpt -05/12 pt daughter Luna Foote was contacted and updated to plan (4) Acute blood loss anemia Current Visit: Yes Status: Acute Assessment and Plan: Acute Blood loss Anemia 2/2 GIB -hgb as low as 6.9, requiring multiple transfusions -2 units prbc 05/11 - 2 units prbc 05/13 -05/13 it appears pt hgb dropped to 7.4 on late night check 05/12, he was not transfused prbc and reason unknown as to why as staff aware that required prbc hgb <8, discussed with daytime RN urgently this morning, as hgb now 7--2 units stat prbc, 20 mg IV lasix once after, will trend q 8h hgb beginning one hour post transfusion, RN did not get in sign out any signs of bleeding overnight, pt denies bleeding -05/14 hgb stable 8.5 -05/15 hgb drop to 7.5, 2 unit prbc -serial h/h -scds only (5) Essential hypertension Current Visit: No Status: Chronic Assessment and Plan: BP currently normotensive, + orthostats on admit -in setting of gi bleed and kaye, holding lisinopril/hctz 20/25 mg and cont to monitor bp - bps remain at goal without bp meds, cont to monitor (6) KAYE (acute kidney injury) Current Visit: Yes Assessment and Plan: Resolved creat at osh 1.49, no recent baseline to compare appeared dry on exam Creat now normal - check UA was ordered but never collected,resolved with IVFs, avoid nephro toxic agents (7) Mixed hyperlipidemia Current Visit: No Status: Chronic Assessment and Plan: cont statin (8) Tobacco abuse Current Visit: No Status: Chronic Assessment and Plan: education nicotine patch (9) Type 2 diabetes mellitus with other circulatory complications Current Visit: No Status: Chronic Assessment and Plan: on metformin at home received study with dye 05/11 hold metformin ssi and accu checks, prn hypoglycemics -check a1c: 5.3 (10) Renal mass Current Visit: Yes Status: Acute Assessment and Plan: Updated infor from OSH with fax of CT a/p read now including questionable R Renal mass -05/13 this was discussed in detail with pt daughter Luna Foote who agreed with current treatment/work up -this is concerning given suspected GI malignancy -Renal US with: 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 MRI kidneys without with gadolinium recommended for additional characterization. 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 No mass lesion or enhancement abnormality. (11) Right middle lobe pulmonary nodule Current Visit: Yes Status: Acute Assessment and Plan: Incidental finding on CT a/p shows right middle lobe 4 mm nodule in setting of this high risk patient this will need CT follow up in 12 months - Time Spent with Patient Total time spent is greater than 50% in coordination of care (as documented) at patient's floor/unit and/or counseling patient: 25 - 35 minutes Plan of Care Discussed with: patient Internal Medicine: Result - Labs CBC & Chem 7: 05/15/18 09:41 05/15/18 09:41 Labs: Short CBC 05/14/18 Range/Units 18:20 Hgb 7.5 L (12.9-16.9) g/dL Hct 23.3 L (37.5-50.1) % - ABG Interpretation ABG results: PT/INR, D-dimer PT 11.1 Seconds (9.4-12.1) 05/12/18 01:18 - Impressions Impressions Abdomen MRI 05/13/18 08:42 IMPRESSION: The apparent mass described on renal ultrasound on the 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 No mass lesion or enhancement abnormality. Simple cyst at the midpole right kidney. D/ / Heriberto Damon / Heriberto Damon Interpreting Provider: Heriberto Damon - VTE Reasons for not Prescribing Prophylaxis: Medical contraindication Documentation of Mechanical Device: Intermittent pneumatic compression device Consult Discharge Plan - Plan Referrals: Cherri Amado CNP [Primary Care Provider] -
[2018-05-15 10:24] LABS: Hematocrit 26.3 % (37.5-50.1); Hemoglobin 8.7 g/dL (12.9-16.9)
--- NOTE | 2018-05-15 10:36 | General Surgery Progress Note ---
Date of Encounter: 05/15/18 Time of Encounter: 10:34 - Assessment and Plan (1) Gastric cancer Current Visit: Yes Status: Acute 82 prior gastric surgery related to PUD, likley antrectomy with B2 reconstruction now with cancer at anastamosis; will plan for surgery on thursday will preop tomorrow 05/16 Qualifiers: Malignant neoplasm of stomach location: unspecified location Qualified Code (s): C16.9 - Malignant neoplasm of stomach, unspecified Subjective Patient reports: no new complaints Objective Vital Signs - Last 8 Hours Temp Pulse Resp BP Pulse Ox 05/15/18 07:19 98.5 F 67 16 155/65 97 05/15/18 04:55 98.2 F 66 16 136/56 96 05/15/18 04:40 98.8 F 64 16 133/71 99 05/15/18 04:15 97.8 F 72 17 153/60 97 05/15/18 02:56 98.7 F 70 16 134/51 98 Intake and Output 05/14/18 05/15/18 05/15/18 23:59 07:59 15:59 Intake Total 720 / 720 1209 / 1209 240 / 240 Output Total 350 / 350 Balance 370 / 370 1209 / 1209 240 / 240 Intake: Oral 720 / 720 240 / 240 Blood Product 700 / 700 Rbcs Leuko Poor As-1 Unit 350 / 350 [id number] Rbcs Leuko Poor As-1 Unit 350 / 350 [id number] Other 509 / 509 Output: Urine 350 / 350 Other: Meal Dinner Breakfast Percent of Meal Consumed 0% 100% # Voids 1 Weight 68.4 kg Blood Glucose* 140 132 - General physical appearance no distress - Respiratory normal expansion, normal respiratory effort - Cardiovascular Cardiovascular exam: Present: RRR - Abdomen Abdomen: Present: soft, non tender - Neurologic CN 2-12 grossly intact - Psychiatric oriented to time, oriented to person, oriented to place - Labs 05/15/18 09:41 05/14/18 05:56 - VTE Reasons for not Prescribing Prophylaxis: Medical contraindication Documentation of Mechanical Device: Intermittent pneumatic compression device Consult Discharge Plan - Plan Referrals: Cherri Amado W[employer] MACHINE OPERATOR [Primary Care Provider] -
[2018-05-15 10:39] LABS: BUN/Creatinine Ratio 30 (6-26); Blood Urea Nitrogen 24 mg/dL (8-23); Carbon Dioxide 27 mEq/L (23-29); Chloride 109 mEq/L (98-107); Glucose 111 mg/dL (70-105); Magnesium 1.6 mg/dL (1.6-2.6); Osmolality,Calculated 295 (280-300); Sodium 140 mEq/L (136-145); Triglycerides 71 mg/dL (< 150); eGFR For Non-African Americans > 60 (> 60)
--- NOTE | 2018-05-15 13:33 | Event Note ---
Date of Encounter: 05/15/18 Time of Encounter: 13:30 - Cardiology Event Note Preop for Thursday surgery: Gastric Cancer Seen already by cardiology: "Troponins 0.08, 0.16, 0.28, 0.45 in the setting of GI bleed, acute blood loss anemia. No acute ischemic ECG changes. TTE with LVEF 55%, mild concentric LVH, mild diastolic dysfunction, basal inferior wall hypokinetic, all other wall segments with normal motion. Stress 09/2015 poor study due to bowel uptake, however may be area of ischemia". ECHO: Impressions: LVEF 60%. Normal LV chamber size and overall function. Mild concentric left ventricular hypertrophy. Mild segmental left ventricular systolic dysfunction. Mild left ventricular diastolic dysfunction. Normal right ventricular structure and function. No evidence of pulmonary hypertension. No significant valvular dysfunction. Left Ventricular Wall Motion: Rest Echo Findings The basal inferior wall was hypokinetic. All other wall segments showed normal motion. Not deemed a good cath candidate at this time. EF preserved on echo Patient to be considered at least moderate risk for planned procedure from a cardiac standpoint. Recommend BB preop.
[2018-05-15] MEDS ORDERED: Clinimix E 5%-15% SOLUTION 2,000 ML with MVI, adult with vitamin K 10 ML IVC SCH (17:00)
[2018-05-15 20:38] LABS: Hematocrit 24.7 % (37.5-50.1); Hemoglobin 9.5 g/dL (12.9-16.9)
[2018-05-16] MEDS: Insulin LISPRO 300 UNITS/3 ML VIAL SQ SCH ×6 (00:37→20:26)
[2018-05-16 05:14] LABS: Basophils % 0.4 %; Eosinophils # 0.1 K/mcL (0.0-0.6); Eosinophils % 2.5 %; Hematocrit 27.7 % (37.5-50.1); Hemoglobin 8.9 g/dL (12.9-16.9); Immature Granulocytes % 0.4 % (0-4); Lymphocytes # 1.1 K/mcL (0.6-4.6); Lymphocytes % 18.9 %; Mean Corpuscular HGB Conc 32.1 g/dL (31.6-35.5); Mean Platelet Volume 11.3 fL (9.4-12.4); Monocytes # 0.7 K/mcL (0.0-1.3); Monocytes % 12.4 %; Neutrophils # 3.7 K/mcL (1.6-8.9); Platelet Count 173 K/mcL (140-400); Red Blood Count 2.87 M/mcL (4.19-5.50); Red Cell Distribution Width 17.9 % (11.5-14.5); Segmented Neutrophils % 65.4 %
[2018-05-16 05:15] LABS: Mean Corpuscular Volume 96.5 fL (83.0-100.0)
[2018-05-16] MEDS: Pantoprazole 40 MG VIAL IVP SCH ×2 (05:58→17:26)
[2018-05-16 07:09] LABS: BUN/Creatinine Ratio 25 (6-26); Blood Urea Nitrogen 20 mg/dL (8-23); Calcium 8.5 mg/dL (8.6-10.3); Carbon Dioxide 29 mEq/L (23-29); Chloride 110 mEq/L (98-107); Glucose 110 mg/dL (70-105); Magnesium 1.8 mg/dL (1.6-2.6); Osmolality,Calculated 295 (280-300); Phosphorous 3.2 mg/dL (2.7-4.5); Potassium 3.9 mEq/L (3.5-5.1); Sodium 141 mEq/L (136-145); eGFR For Non-African Americans > 60 (> 60)
--- NOTE | 2018-05-16 07:30 | Internal Med Progress Note ---
Hospitalist Progress Note - Encounter Date of Encounter: 05/16/18 Time of Encounter: 09:20 - Subjective Interval History: awake, pleasant, no family present. cont to feel well without abd pain, nausea, emesis or signs of bleeding. Dneies fevers, chills, cp, palpitations, presyncope or sob. - Exam Vitals: Temp Pulse Resp BP Pulse Ox 98.4 F 78 16 135/61 94 05/16/18 04:15 05/16/18 04:15 05/16/18 04:15 05/16/18 04:15 05/16/18 04:15 Exam: General: awake, alert, appears stated age, cachectic HEENT: moist mucus membranes, no pallor of conjunctiva Cardiovascular:regular rate and rhythm, normal S1 & S2, no rubs, murmurs or gallops. no le edema Lungs:Normal breath sounds, no wheezes, or crackles. Normal respiratory effort on RA Abdomen:Soft, non-tender, non-distended, no rigidity, decreased bowel sounds Neurological: AAOx3 Skin: no rash, no jaundice , no pallor - Assessment and Plan (1) Upper GI bleeding Current Visit: Yes Status: Acute Assessment and Plan: 2/2 Gastric Ulcer confirmed Adenoc[address]oma CT a/p no acute findings, diverticulosis, mild cholelithiasis on review of CT from [facility] hgb 7.9, plt 304 at OSH, inr 1, fobt neg on OSH record review orthostat + on admit -IVFs -hold home asa and any pharm vte ppx -05/11 2 unit prbc -05/[address] Joseph, with large anastomotic ulcer suspicious for malignancy with bxs taken and hemo spray to ulcer to control bleeding -05/12 d/w GI--cont ppi gtt for addl 48 hrs, will need to await biopsies, ok to advance to clear liquid diet, gen surg consulted, I personally discussed all findings with pt and his daughter Luna Foote and agreeable to current treatment/ plan -05/13 hgb drop in last 24 hrs to 7, no active bleeding noted--see anemia details below, 2 unit prbc -05/13repeat ct a/p obtained showed gastric wall thickening -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 and surgery planning subtotal gastrectomy on Thursday, begin TPN -05/15 again drop in hgb to 7.5 without other evidence of bleeding--see anemia details below -have updated cards to surgery plan for pre op assessment - not a candidate for LHC at this time, at least mod risk for OR, rec for preop BB, started 05/16 -npo p mn for OR Thursday gi and surg following (2) Adenocarcinoma Current Visit: Yes Status: Acute Assessment and Plan: as above (3) Elevated troponin Current Visit: Yes Status: Acute Assessment and Plan: Most likely Type II NSTEMI in setting of GI bleed, acute blood loss anemia, though given his pmhx/tobacco use, cannot rule out Type I without LHC -0.1 at OSH, asx, no ischemic ekg changes on review of EKG -trop peak at 0.45 and down trended -cont tele, keep hgb >8 -resume home statin but cannot resume home ASA or start hep gtt given GIB -echo this admit with EF 60%, mild LVH, mild diastolic dysfunction not graded, , hypokinetic basal inferior wall cards following -No cardiac rehab consult is warranted. With wall motion abnormality on echo ideally would recommend LHC, however patient is not a candidate with acute GI bleed. Can consider outpatient ischemic evaluation. will have pt f/u with Dr Hunter outpt -05/12 pt daughter Luna Foote was contacted and updated to plan -preop cards clearance as above, low dose BB started (4) Acute blood loss anemia Current Visit: Yes Status: Acute Assessment and Plan: Acute Blood loss Anemia 2/2 GIB -hgb as low as 6.9, requiring multiple transfusions -2 units prbc 05/11 - 2 units prbc 05/13 -05/13 it appears pt hgb dropped to 7.4 on late night check 05/12, he was not transfused prbc and reason unknown as to why as staff aware that required prbc hgb <8, discussed with daytime RN urgently this morning, as hgb now 7--2 units stat prbc, 20 mg IV lasix once after, will trend q 8h hgb beginning one hour post transfusion, RN did not get in sign out any signs of bleeding overnight, pt denies bleeding -05/14 hgb stable 8.5 -05/15 hgb drop to 7.5, 2 unit prbc -serial h/h -scds only (5) Essential hypertension Current Visit: No Status: Chronic Assessment and Plan: BP currently normotensive, + orthostats on admit -in setting of gi bleed and pat, holding lisinopril/hctz 20/25 mg -started low dose coreg -cont to monitor (6) Mixed hyperlipidemia Current Visit: No Status: Chronic Assessment and Plan: cont statin (7) Tobacco abuse Current Visit: No Status: Chronic Assessment and Plan: education nicotine patch (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 MRI kidneys without with gadolinium recommended for additional characterization. 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 No mass lesion or enhancement abnormality. (10) Right middle lobe pulmonary nodule Current Visit: Yes Status: Acute Assessment and Plan: Incidental finding on CT a/p shows right middle lobe 4 mm nodule in setting of this high risk patient this will need CT follow up in 12 months DVT Prophylaxis: scd - Time Spent with Patient Total time spent is greater than 50% in coordination of care (as documented) at patient's floor/unit and/or counseling patient: 25 - 35 minutes Plan of Care Discussed with: patient Internal Medicine: Result - Labs CBC & Chem 7: 05/16/18 04:00 05/16/18 06:30 Labs: Short CBC 05/15/18 05/15/18 05/16/18 Range/Units 09:41 20:00 04:00 WBC 5.6 (4.3-11.1) K/mcL Hgb 8.7 L 9.5 L 8.9 L (12.9-16.9) g/dL Hct 26.3 L 24.7 L 27.7 L (37.5-50.1) % Plt Count 173 (140-400) K/mcL Neutrophils # 3.7 (1.6-8.9) K/mcL BMP 05/15/18 05/16/18 09:41 06:30 Sodium 140 141 Potassium 4.0 3.9 Chloride 109 H 110 H Carbon Dioxide 27 29 BUN 24 H 20 Creatinine 0.81 0.80 Glucose 111 H 110 H Calcium 8.0 L 8.5 L - ABG Interpretation ABG results: PT/INR, D-dimer PT 11.1 Seconds (9.4-12.1) 05/12/18 01:18 - VTE Reasons for not Prescribing Prophylaxis: Medical contraindication Documentation of Mechanical Device: Intermittent pneumatic compression device Consult Discharge Plan - Plan Referrals: Cherri Amado CNP [Primary Care Provider] -
[2018-05-16] MEDS: Sucralfate 1 GM TABLET PO SCH ×4 (09:40→20:32)
[2018-05-16] MEDS: Nicotine 7 MG PATCH.TD24 TD SCH (09:40)
[2018-05-16] MEDS: Fluconazole 100 MG TABLET PO SCH (09:40)
[2018-05-16] MEDS: Iron Sucrose Complex 250 MG in 0.9 % Sodium Chloride 250 ML IVPB SCH (09:41)
--- NOTE | 2018-05-16 13:04 | General Surgery Progress Note ---
<Celestino Cameron - Last Filed: 05/16/18 12:59> Date of Encounter: 05/16/18 Time of Encounter: 08:45 - Assessment and Plan (1) Upper GI bleeding Current Visit: Yes Status: Acute Plan: We will plan for surgery tomorrow Cardiology evaluation complete, no recommendation for LHC prior to surgery, recommend preoperative initiation of beta rigo therapy Patient is moderate risk for surgery Clear liquid diet today NPO at midnight (2) Acute blood loss anemia Current Visit: Yes Status: Acute Serial H/H Transfusion as necessary, Surgery tomorrow (3) Elevated troponin Current Visit: Yes Status: Acute Cardiology consulted for preoperative clearance LHC not recommended at this time given acute GI bleed Low-dose beta rigo started preoperatively Subjective Patient reports: tolerating liquids well, voiding w/o difficulty, flatus, bowel movement, afebrile Narrative: Patient doing well. Denies nausea or vomiting, tolerating clear liquid diet. Objective Vital Signs - Last 8 Hours Temp Pulse Resp BP Pulse Ox 05/16/18 12:15 98.9 F 73 16 144/53 97 05/16/18 08:34 98.2 F 84 16 164/62 99 Intake and Output 05/15/18 05/16/18 05/16/18 23:59 07:59 15:59 Intake Total 360 / 360 250 / 250 240 / 240 Output Total 1500 / 1500 625 / 625 Balance -1140 / -1140 250 / 250 -385 / -385 Intake: IV Fluids 250 / 250 Intralipid 20% 250 ML @ 21 mls/ 250 / 250 hr IVPB DAILY@1700 [facility] Rx#: [id number] Oral 360 / 360 240 / 240 Output: Urine 1500 / 1500 625 / 625 Other: Meal Dinner Breakfast Percent of Meal Consumed 100% 100% Weight 69.3 kg Blood Glucose* 169 140 103 - General physical appearance no distress, cachectic - Eyes normal ocular movement - ENT normal mucosa, atraumatic, normocephalic - Neck Neck exam: trachea midline, no venous distension - Respiratory normal expansion, normal respiratory effort - Cardiovascular Cardiovascular exam: Present: RRR - Abdomen Abdomen: Present: bowel sounds present, soft, non tender, surgical scars (Well- healed midline scar from prior gastrectomy) - Integumentary no rash - Neurologic CN 2-12 grossly intact - Musculoskeletal normal posture - Psychiatric oriented to time, oriented to person, oriented to place, speech is normal, memory intact - Labs 05/16/18 04:00 05/16/18 06:30 Diabetes panel 05/16/18 Range/Units 06:30 Sodium 141 (136-145) mEq/L Potassium 3.9 (3.5-5.1) mEq/L Chloride 110 H (98-107) mEq/L Carbon Dioxide 29 (23-29) mEq/L BUN 20 (8-23) mg/dL Creatinine 0.80 (0.70-1.30) mg/dL Glucose 110 H (70-105) mg/dL Calcium 8.5 L (8.6-10.3) mg/dL Calcium panel 05/16/18 Range/Units 06:30 Calcium 8.5 L (8.6-10.3) mg/dL Phosphorus 3.2 (2.7-4.5) mg/dL Pituitary panel 05/16/18 Range/Units 06:30 Sodium 141 (136-145) mEq/L Potassium 3.9 (3.5-5.1) mEq/L Chloride 110 H (98-107) mEq/L Carbon Dioxide 29 (23-29) mEq/L BUN 20 (8-23) mg/dL Creatinine 0.80 (0.70-1.30) mg/dL Glucose 110 H (70-105) mg/dL Calcium 8.5 L (8.6-10.3) mg/dL Adrenal panel 05/16/18 Range/Units 06:30 Sodium 141 (136-145) mEq/L Potassium 3.9 (3.5-5.1) mEq/L Chloride 110 H (98-107) mEq/L Carbon Dioxide 29 (23-29) mEq/L BUN 20 (8-23) mg/dL Creatinine 0.80 (0.70-1.30) mg/dL Glucose 110 H (70-105) mg/dL Calcium 8.5 L (8.6-10.3) mg/dL - VTE Reasons for not Prescribing Prophylaxis: Medical contraindication Documentation of Mechanical Device: Intermittent pneumatic compression device Consult Discharge Plan - Plan Referrals: Cherri Amado CNP [Primary Care Provider] - <Anand Suero - Last Filed: 05/16/18 17:14> Date of Encounter: 05/16/18 - Assessment and Plan (1) Gastric cancer Current Visit: Yes Status: Acute Qualifiers: Malignant neoplasm of stomach location: unspecified location Qualified Code (s): C16.9 - Malignant neoplasm of stomach, unspecified Objective Vital Signs - Last 8 Hours Temp Pulse Resp BP Pulse Ox 05/16/18 12:15 98.9 F 73 16 144/53 97 Intake and Output 05/16/18 05/16/18 05/16/18 07:59 15:59 23:59 Intake Total 250 / 250 240 / 240 Output Total 1525 / 1525 Balance 250 / 250 -1285 / -1285 Intake: IV Fluids 250 / 250 Intralipid 20% 250 ML @ 21 mls/ 250 / 250 hr IVPB DAILY@1700 [facility] Rx#: [id number] Oral 240 / 240 Output: Urine 1525 / 1525 Other: Meal Breakfast Percent of Meal Consumed 100% Blood Glucose* 140 103 133 - Labs 05/16/18 14:43 05/16/18 06:30 Diabetes panel 05/16/18 Range/Units 06:30 Sodium 141 (136-145) mEq/L Potassium 3.9 (3.5-5.1) mEq/L Chloride 110 H (98-107) mEq/L Carbon Dioxide 29 (23-29) mEq/L BUN 20 (8-23) mg/dL Creatinine 0.80 (0.70-1.30) mg/dL Glucose 110 H (70-105) mg/dL Calcium 8.5 L (8.6-10.3) mg/dL Calcium panel 05/16/18 Range/Units 06:30 Calcium 8.5 L (8.6-10.3) mg/dL Phosphorus 3.2 (2.7-4.5) mg/dL Pituitary panel 05/16/18 Range/Units 06:30 Sodium 141 (136-145) mEq/L Potassium 3.9 (3.5-5.1) mEq/L Chloride 110 H (98-107) mEq/L Carbon Dioxide 29 (23-29) mEq/L BUN 20 (8-23) mg/dL Creatinine 0.80 (0.70-1.30) mg/dL Glucose 110 H (70-105) mg/dL Calcium 8.5 L (8.6-10.3) mg/dL Adrenal panel 05/16/18 Range/Units 06:30 Sodium 141 (136-145) mEq/L Potassium 3.9 (3.5-5.1) mEq/L Chloride 110 H (98-107) mEq/L Carbon Dioxide 29 (23-29) mEq/L BUN 20 (8-23) mg/dL Creatinine 0.80 (0.70-1.30) mg/dL Glucose 110 H (70-105) mg/dL Calcium 8.5 L (8.6-10.3) mg/dL - Attending Attestation patient seen and examined. i have reviewed all labs, imaging, and notes. i agree with the above assessment and plan and wish to add the following... patient added on for surgery on 05/17 IVF at midnight NPO at midnight preop abx for OR tomorrow
[2018-05-16 15:01] LABS: Hematocrit 25.6 % (37.5-50.1); Hemoglobin 8.1 g/dL (12.9-16.9)
[2018-05-16] MEDS ORDERED: Clinimix E 5%-15% SOLUTION 2,000 ML with MVI, adult with vitamin K 10 ML IVC SCH (17:00)
[2018-05-16] MEDS: 0.9 % Sodium Chloride 250 ML IVC SCH (17:26)
[2018-05-16] MEDS ORDERED: 0.9 % Sodium Chloride 250 ML ONE (18:13)
[2018-05-17] MEDS: Insulin LISPRO 300 UNITS/3 ML VIAL SQ SCH ×5 (04:23→20:46)
[2018-05-17 04:59] LABS: Hematocrit 28.9 % (37.5-50.1); Hemoglobin 9.5 g/dL (12.9-16.9); Immature Granulocytes % 0.4 % (0-4); Lymphocytes % 13.6 %; Mean Corpuscular HGB Conc 32.9 g/dL (31.6-35.5); Mean Corpuscular Hemoglobin 30.5 pg (28.0-33.3); Mean Corpuscular Volume 92.9 fL (83.0-100.0); Monocytes % 15.1 %; Platelet Count 155 K/mcL (140-400); Red Blood Count 3.11 M/mcL (4.19-5.50); Red Cell Distribution Width 17.5 % (11.5-14.5); Segmented Neutrophils % 67.7 %
[2018-05-17 05:00] LABS: Basophils % 0.4 %; Eosinophils # 0.2 K/mcL (0.0-0.6); Eosinophils % 2.8 %; Lymphocytes # 0.7 K/mcL (0.6-4.6); Monocytes # 0.8 K/mcL (0.0-1.3); Neutrophils # 3.6 K/mcL (1.6-8.9)
[2018-05-17 05:04] LABS: INR 1.1; Prothrombin Time 12.1 Seconds (9.4-12.1)
[2018-05-17 05:21] LABS: BUN/Creatinine Ratio 23 (6-26); Blood Urea Nitrogen 18 mg/dL (8-23); Calcium 8.2 mg/dL (8.6-10.3); Carbon Dioxide 28 mEq/L (23-29); Chloride 110 mEq/L (98-107); Glucose 98 mg/dL (70-105); Magnesium 1.8 mg/dL (1.6-2.6); Osmolality,Calculated 296 (280-300); Phosphorous 2.9 mg/dL (2.7-4.5); Potassium 3.7 mEq/L (3.5-5.1); Sodium 142 mEq/L (136-145); eGFR For Non-African Americans > 60 (> 60)
[2018-05-17] MEDS: 0.9 % Sodium Chloride 250 ML IVC SCH ×2 (05:26→10:26)
[2018-05-17] MEDS: Pantoprazole 40 MG VIAL IVP SCH (05:43)
--- NOTE | 2018-05-17 08:22 | Internal Med Progress Note ---
Hospitalist Progress Note - Encounter Date of Encounter: 05/17/18 Time of Encounter: 07:20 - Subjective Interval History: aslpee, awakes to name. denies any abd pain, nausea, emesis or bleeding overnight. tolerated prbc last evenign without issue. no cp, pressure, sob, orthopnea or palpitations. awaiting surgery - Exam Vitals: Temp Pulse Resp BP Pulse Ox 98.1 F 65 18 136/53 96 05/17/18 07:25 05/17/18 07:25 05/17/18 07:25 05/17/18 07:05/17/18 07:25 Exam: General: awake, alert, appears stated age, cachectic, pleasant HEENT: moist mucus membranes, no pallor of conjunctiva Cardiovascular:regular rate and rhythm, normal S1 & S2, no rubs, murmurs or gallops. no le edema Lungs:Normal breath sounds, no wheezes, or crackles. Normal respiratory effort on RA Abdomen:Soft, non-tender, non-distended, no rigidity, decreased bowel sounds Neurological: AAOx3 Skin: no rash, no jaundice , no pallor - Assessment and Plan (1) Upper GI bleeding Current Visit: Yes Status: Acute Assessment and Plan: 2/2 Gastric Ulcer confirmed Adenocarcnoma CT a/p no acute findings, diverticulosis, mild cholelithiasis on review of CT from [facility] 7.9, plt 304 at OSH, inr 1, fobt neg on OSH record review orthostat + on admit -IVFs -hold home asa and any pharm vte ppx -05/11 2 unit prbc -05/[address] Joseph, with large anastomotic ulcer suspicious for malignancy with bxs taken and hemo spray to ulcer to control bleeding -05/12 d/w GI--cont ppi gtt for addl 48 hrs, will need to await biopsies, ok to advance to clear liquid diet, gen surg consulted, I personally discussed all findings with pt and his daughter Luna Foote and agreeable to current treatment/ plan -05/13 hgb drop in last 24 hrs to 7, no active bleeding noted--see anemia details below, 2 unit prbc -05/13repeat ct a/p obtained showed gastric wall thickening -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 and surgery planning subtotal gastrectomy on Thursday, begin TPN -05/15 again drop in hgb to 7.5 without other evidence of bleeding--see anemia details below -have updated cards to surgery plan for pre op assessment - not a candidate for LHC at this time, at least mod risk for OR, rec for preop BB, started 05/16 -OR 05/17 gi and surg following (2) Adenocarcinoma Current Visit: Yes Status: Acute Assessment and Plan: as above (3) Elevated troponin Current Visit: Yes Status: Acute Assessment and Plan: Most likely Type II NSTEMI in setting of GI bleed, acute blood loss anemia, though given his pmhx/tobacco use, cannot rule out Type I without LHC -0.1 at OSH, asx, no ischemic ekg changes on review of EKG -trop peak at 0.45 and down trended -cont tele, keep hgb >8 -resume home statin but cannot resume home ASA or start hep gtt given GIB -echo this admit with EF 60%, mild LVH, mild diastolic dysfunction not graded, , hypokinetic basal inferior wall cards following -No cardiac rehab consult is warranted. With wall motion abnormality on echo ideally would recommend LHC, however patient is not a candidate with acute GI bleed. Can consider outpatient ischemic evaluation. will have pt f/u with Dr Hunter outpt -05/12 pt daughter Luna Foote was contacted and updated to plan -preop cards clearance as above, low dose BB started -cleared for OR for 05/17 (4) Acute blood loss anemia Current Visit: Yes Status: Acute Assessment and Plan: Acute Blood loss Anemia 2/2 GIB -hgb as low as 6.9, requiring multiple transfusions -2 units prbc 05/11 - 2 units prbc 05/13 -05/13 it appears pt hgb dropped to 7.4 on late night check 05/12, he was not transfused prbc and reason unknown as to why as staff aware that required prbc hgb <8, discussed with daytime RN urgently this morning, as hgb now 7--2 units stat prbc, 20 mg IV lasix once after, will trend q 8h hgb beginning one hour post transfusion, RN did not get in sign out any signs of bleeding overnight, pt denies bleeding -05/14 hgb stable 8.5 -05/15 hgb drop to 7.5, 2 unit prbc -05/16 1 int prbc for 1.5 gm drop in 24 hrs and in prep for OR -05/17 pre op hgb 9.5, check evening hgb post op -scds only (5) Essential hypertension Current Visit: No Status: Chronic Assessment and Plan: BP currently normotensive, + orthostats on admit -in setting of gi bleed and pat, holding lisinopril/hctz 20/25 mg -started low dose coreg -cont to monitor (6) Mixed hyperlipidemia Current Visit: No Status: Chronic Assessment and Plan: cont statin (7) Tobacco abuse Current Visit: No Status: Chronic Assessment and Plan: education nicotine patch (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 MRI kidneys without with gadolinium recommended for additional characterization. 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 No mass lesion or enhancement abnormality. (10) Right middle lobe pulmonary nodule Current Visit: Yes Status: Acute Assessment and Plan: Incidental finding on CT a/p shows right middle lobe 4 mm nodule in setting of this high risk patient this will need CT follow up in 12 months DVT Prophylaxis: scd - Time Spent with Patient Total time spent is greater than 50% in coordination of care (as documented) at patient's floor/unit and/or counseling patient: 25 - 35 minutes Plan of Care Discussed with: patient Internal Medicine: Result - Labs CBC & Chem 7: 05/17/18 04:45 05/17/18 04:45 Labs: Short CBC 05/16/18 05/17/18 Range/Units 14:43 04:45 WBC 5.3 (4.3-11.1) K/mcL Hgb 8.1 L 9.5 L (12.9-16.9) g/dL Hct 25.6 L 28.9 L (37.5-50.1) % Plt Count 155 (140-400) K/mcL Neutrophils # 3.6 (1.6-8.9) K/mcL BMP 05/17/18 04:45 Sodium 142 Potassium 3.7 Chloride 110 H Carbon Dioxide 28 BUN 18 Creatinine 0.78 Glucose 98 Calcium 8.2 L - ABG Interpretation ABG results: PT/INR, D-dimer PT 12.1 Seconds (9.4-12.1) 05/17/18 04:45 - VTE Reasons for not Prescribing Prophylaxis: Medical contraindication Documentation of Mechanical Device: Intermittent pneumatic compression device Consult Discharge Plan - Plan Referrals: Cherri Amado CNP [Primary Care Provider] -
[2018-05-17] MEDS: Sucralfate 1 GM TABLET PO SCH ×3 (10:15→17:06)
[2018-05-17] MEDS: Nicotine 7 MG PATCH.TD24 TD SCH (10:15)
[2018-05-17] MEDS: Fluconazole 100 MG TABLET PO SCH (10:15)
[2018-05-17] MEDS: Iron Sucrose Complex 250 MG in 0.9 % Sodium Chloride 250 ML IVPB SCH (10:16)
--- NOTE | 2018-05-17 14:10 | Anesthesia Evaluation PreOp ---
Date of Encounter: 05/17/18 Time of Encounter: 15:05 - Past History Planned Operation: kim-en-y, gastrectomy Cardiac History: HTN, Hyperlipidemia, Arrhythmia (afib), Other (admitted with elevated troponins, evaluated by Cardiology, cleared.) Pulmonary History: Smoker [employer] History: TIA (on ASA for TIA) Other Medical History: GERD, Other (hx of gastritis, upper gi bleed) Anesthesia History: No Prior Anesthetic Complications, Past Anesthesia (recent EGD for upper GI bleed) Alcohol Use: occasionally Drug use: none Medications and Allergies Aspirin 325 mg PO HS 10/18/15 [History] Lisinopril/Hydrochlorothiazide [Zestoretic 20-25 mg Tablet] 1 each PO HS [History] Lovastatin [Mevacor] 20 mg PO HS 10/18/15 [History] metFORMIN [Glucophage] 500 mg PO BIDWM 10/18/15 [History] Ferrous Sulfate [Iron] 325 mg PO DAILY 05/11/18 [History] Mv-Min/FA/Vit K/Lycop/Lut/Zeax [Ocuvite Eye + Multi Tablet] 1 tab PO DAILY 05/11 [History] 3 Allergy/AdvReac Type Severity Reaction Status Date / Time No Known Allergies Allergy Verified 05/11/18 12:28 - Meds/Allergy Pre-op Review Medications Reviewed: Yes Allergies Reviewed: Yes Beta Blockers on Current Med List: Yes (1000) Anesthesia Results - Labs 05/17/18 04:45 05/17/18 04:45 - Imaging EKG: report reviewed (sinus rhythm) Additional studies: EF65%, normal echo, no ischemia Anesthesia Exam Selected Entries 05/17/18 11:41 Temperature 98.4 F Pulse Rate 67 Respiratory Rate 18 Blood Pressure 147/60 Weight: 69 kg BMI 21 NPO (# of Hours): over 8 hours - HEENT Pupil (Motor): Pupils equal Teeth: Edentulous (no upper teeth, lower teeth in fair condition) Oral Opening: Greater than 3 - Cardiac Rhythm: Regular Murmur: None - Pulmonary Breath Sounds: bilateral Clear Respiratory Effort: Symmetrical Anesthesia Assess/Plan ASA Score: 3 Modified [place] Scale for Level of Consciousness: Cooperative, oriented, and tranquil Anesthetic Plan: General Monitoring Plan: Standard Monitors Recovery Plan: PACU (Discussed GA, regional nerve block for post operative pain relief. Agreed to proceed.)
[2018-05-17] MEDS ORDERED: CefOXitin 1,000 MG VIAL ONE (14:15)
[2018-05-17] MEDS ORDERED: Albumin Human 5% 25.0 GM/500 ML VIAL ONE (14:16)
[2018-05-17] MEDS ORDERED: *HR* Etomidate 40 MG/20 ML VIAL IVP ONE (14:19)
[2018-05-17] MEDS ORDERED: *HR* Propofol 200 MG/20 ML VIAL IVP ONE (14:19)
[2018-05-17] MEDS ORDERED: Dexamethasone 4 MG/ML VIAL ONE (14:20)
[2018-05-17] MEDS ORDERED: Ondansetron 4 MG/2 ML VIAL ONE (14:20)
[2018-05-17] MEDS ORDERED: *HR* Rocuronium Bromide 50 MG/5 ML VIAL ONE ×2 (14:20→17:56)
[2018-05-17] MEDS ORDERED: Lidocaine -MPF 2% 2 ML VIAL ONE (14:20)
[2018-05-17] MEDS ORDERED: *HR* FentaNYL (PF) 100 MCG/2 ML VIAL ONE ×2 (14:20→16:43)
[2018-05-17] MEDS ORDERED: Acetaminophen IV 1,000 MG/100 ML INFUS..BTL ONE (15:00)
[2018-05-17] MEDS ORDERED: ROPIVACAINE HCL/PF 0.5% 30 ML VIAL ONE (15:00)
--- NOTE | 2018-05-17 16:10 | Anesthesia Procedures ---
Date of Encounter: 05/17/18 Time of Encounter: 15:25 Procedures: Anesthesia - Nerve Block Procedure Date: 05/17/18 Time: 15:25 Allergies/Adv Reactions: nka Pre-op Diagnosis: GI tumor Surgical Procedure: gastrectomy Checklist: Correct Patient Identifier, Correct procedure, History checked Blood Thinner: No Monitor Applied: EKG, BP, Pulse Oximetry Supplemental Oxygen via Nasal Cannula (L/min): 2 Sedation: Fentanyl (mcg): 100 Indication: Post Op Analgesia Pre-op Neuro Deficits: No Block Type: Other (errector spinae 30ml bilateral @ T8) Catheter placed: No Sterile Technique: Yes Ultrasound used: Yes Anatomy identified: Yes Visual spread of Local: Yes Neuro Stimulation: No Blood on Needle Aspiration: No Smooth Injection of Local: Yes Pain with Injection of Local: No Prep: Chlorhexadine Needle: 21 x 100 mm Stimuplex Local: Ropivacaine (0.25%), Other (decadron 16mg, 2% lido 4ml) Volume (cc): 60 Number of Attempts: 1 Complications: None/effective block Vitals: Vital Signs/O2 Sat/Glucose, Most Recent Temp Pulse Resp BP Pulse Ox 98.4 F 59 14 157/71 100 05/17/18 11:41 05/17/18 15:25 05/17/18 15:25 05/17/18 15:25 05/17/18 15:25 Blood Glucose* 140
[2018-05-17] MEDS ORDERED: Albuterol 2.5 MG/3 ML NEBULIZER IH ONE (16:50)
[2018-05-17] MEDS ORDERED: Dexamethasone 4 MG/ML VIAL IVP ONE (16:50)
[2018-05-17] MEDS ORDERED: Clinimix E 5%-15% SOLUTION 2,000 ML with MVI, adult with vitamin K 10 ML IVC SCH ×2 (17:00→19:50)
--- NOTE | 2018-05-17 17:00 | Anesthesia Procedures ---
Date of Encounter: 05/17/18 Time of Encounter: 15:13 Procedures: Anesthesia - Nerve Block Procedure Date: 05/17/18 Time: 15:13 Allergies/Adv Reactions: none Pre-op Diagnosis: Gastric cancer Surgical Procedure: Venkatesh-en-y,gastrectomy Checklist: Correct Patient Identifier, Correct procedure, History checked Correct side: Left (midline) Monitor Applied: EKG, BP, Pulse Oximetry Supplemental Oxygen via Nasal Cannula (L/min): 2 Sedation: Fentanyl (mcg): 25 Indication: Post Op Analgesia Pre-op Neuro Deficits: No Block Type: Other (erector spinae) Catheter placed: No Sterile Technique: Yes Ultrasound used: Yes Anatomy identified: Yes Visual spread of Local: Yes Neuro Stimulation: No Blood on Needle Aspiration: No Smooth Injection of Local: Yes Pain with Injection of Local: No Prep: Chlorhexadine Needle: 22 x 50 mm Stimuplex Local: Ropivacaine (Ropivicaine 0.5% diluted to 0.25% 50ml total, lidocaine 2% 4ml, Decadron 16mg) Number of Attempts: 1 Complications: None/effective block Vitals: Vital Signs/O2 Sat/Glucose, Most Recent Temp Pulse Resp BP Pulse Ox 98.4 F 59 14 157/71 100 05/17/18 11:41 05/17/18 15:25 05/17/18 15:25 05/17/18 15:25 05/17/18 15:25 Blood Glucose* 140
[2018-05-17] MEDS ORDERED: *HR* PHENYLEPHRINE 1,000 MCG/10 ML SYRINGE IVP ONE (18:05)
[2018-05-17] MEDS ORDERED: Neostigmine Methylsulfate 3 MG/3 ML SYRINGE ONE (18:35)
--- NOTE | 2018-05-17 18:56 | Operative Note ---
Date of procedure: 05/17/18 Pre-op diagnosis: Gastric cancer Post-op diagnosis: same Procedure: Subtotal gastrectomy with Venkatesh-en-Y reconstruction (+30%, reoperation and takedown of Billroth II with previous gastrectomy) Anesthesia: GETA Surgeon: Hermilo Madden Was there an physical therapy assistant present: Yes Nutrition Services Worker: Anand Suero Estimated blood loss (cc): 100 Specimen: Subtotal gastrectomy and previous Billroth II anastomosis Condition: stable Disposition: PACU Procedure in Detail: After informed consent the patient is taken to the major operating suite placed supine position given adequate general endotracheal anesthesia. The abdomen was prepped and draped in sterile fashion utilizing ChloraPrep and standard draping techniques Dr. Anand Suero was first Asst. Dr. Barker was present throughout the entire case. A certified surgical first assistant was absolutely necessary secondary to previous gastrectomy and previous Billroth II anastomosis adding to the complexity and time of the case. Timeout was taken and the patient was identified. I made an upper midline abdominal incision and the abdomen. The scar tissue to the liver in the anterior abdominal wall was divided with electrocautery. I was able to define the anatomy. It was evident that the patient had a Billroth II anastomosis with the bowel rotated a clockwise fashion to an antecolic orientation. I dissected the transverse colon off the mesentery of the small bowel and the afferent and efferent limb. This allowed me to isolate the anastomosis on the mesentery for the small bowel. I divided the jejunum just past the ligament of Treitz with BARBY and I divided the efferent limb 10-12 cm from the anastomosis. This allowed me to lift the stomach upward and dissected the back wall of the previous gastrostomy off the pancreas this dissection was quite difficult. I then divided the vessels running from the gastroepiploic down the omentum to completely mobilize the transverse colon off the specimen. I then divided half of the short gastrics. I could easily palpate the tumor. A measured 5 cm up the lesser curve and greater curve to make sure that we had adequate resection margin. I carried the dissection up the lesser curve to the 5 cm area and I was uncomfortable going any higher because 100 reserve the blood supply. I went slightly higher than 5 cm on the greater curvature. I divided the stomach with BARBY and the specimen was passed off the field. I brought the Venkatesh limb through the transverse mesocolon on the left side of the middle colic artery and brought this into tension-free approximation with the small gastric remnant. I created a handsewn 2 layer anastomosis using 2-0 silk in the seromuscular and chromic catgut for the mucosal layers. The entire length of the staple line was reinforced with imbricated 2-0 silk stitches. Skin and excellent technical result and created the proximal anastomosis of the Venkatesh limb. There was absolutely no tension on the jejunum. I I then approximated the very short jejunal segment just past the ligament of Treitz for the distal anastomosis of the Venkatesh-en-Y. This brought into approximation in a tension- free way to the Venkatesh limb. I created a day and decided handsewn anastomosis with 2-0 silk and 3-0 chromic. This given excellent technical in result I secured the jejunum where went through the transverse mesocolon and I secured the side of the pancreaticobiliary limb to the side of the mesentery for the Venkatesh limb so there was no opening in this area. All segments bowel appeared very well vascularized and the anastomoses were widely patent. Total blood loss was 100 mL. Patient tolerated the procedure well. Midline was closed with looped 0 PDS. The skin was reapproximated with interrupted Vicryl and skin clips.
--- NOTE | 2018-05-17 19:36 | Anesthesia Evaluation Post Op ---
Date of Encounter: 05/17/18 Time of Encounter: 19:33 - Vital Signs Vital Signs: Vital Signs/O2 Sat/Glucose, Most Current Temp Pulse Resp BP Pulse Ox 05/17/18 19:20 97.8 F 62 16 171/64 95 05/17/18 19:10 63 16 174/74 95 05/17/18 19:00 65 16 185/70 96 05/17/18 18:50 98.1 F 60 16 174/68 100 - Lungs Lungs: Clear Ascult./Percussion - Airway Airway: Non-obstructed - Cardiovascular Baseline Rhythm - Mental Status Mental Status: Alert & Oriented, Answers Appropriately - Pain Pain Scale: 0 Pain Scale used: Numeric (1 - 10) - Nausea Vomiting Nausea Vomiting: Not Present - Hydration Hydration: Tolerates oral liquids, Has not voided - Discharge PostOp Status: Transfer Patient to floor Anes Supervising Prov Stmt: Pt seen/evaluated, VSS and has met criteria for discharge to floor. - MD Harriett
[2018-05-17] MEDS ORDERED: *HR* Dextrose 50 % in Water (Syg) 50 ML SYRINGE IVP PRN (19:50)
[2018-05-17] MEDS ORDERED: Naloxone 0.4 MG/ML INJ IVP PRN (19:50)
[2018-05-17] MEDS ORDERED: D5% in Water 1,000 ML IVC PRN (19:50)
[2018-05-17] MEDS ORDERED: Dextrose Gel 15 GM/37.5 ML TUBE PO PRN ×2 (19:50)
[2018-05-17] MEDS ORDERED: Ondansetron 4 MG/2 ML VIAL IVP PRN (19:50)
[2018-05-17] MEDS ORDERED: D10% in Water 500 ML IVC PRN (19:50)
[2018-05-17] MEDS: 0.9 % Sodium Chloride 1,000 ML IVC SCH (20:34)
[2018-05-17] MEDS: OXYCODONE Oral CONC 10 MG/0.5 ML ORAL.SYG SL PRN (22:03)
[2018-05-18] MEDS: Insulin LISPRO 300 UNITS/3 ML VIAL SQ SCH ×6 (00:19→22:39)
[2018-05-18 01:05] LABS: Hematocrit 30.9 % (37.5-50.1); Hemoglobin 10.3 g/dL (12.9-16.9)
[2018-05-18] MEDS ORDERED: Melatonin 3 MG TABLET PO PRN (01:36)
[2018-05-18] MEDS: Pantoprazole 40 MG VIAL IVP SCH ×2 (05:19→17:22)
[2018-05-18 05:54] LABS: Basophils % 0.1 %; Hematocrit 31.3 % (37.5-50.1); Hemoglobin 10.1 g/dL (12.9-16.9); Immature Granulocytes % 0.5 % (0-4); Lymphocytes # 0.4 K/mcL (0.6-4.6); Lymphocytes % 2.4 %; Mean Corpuscular HGB Conc 32.3 g/dL (31.6-35.5); Mean Corpuscular Hemoglobin 30.1 pg (28.0-33.3); Mean Corpuscular Volume 93.2 fL (83.0-100.0); Mean Platelet Volume 11.5 fL (9.4-12.4); Monocytes % 6.6 %; Neutrophils # 13.7 K/mcL (1.6-8.9); Platelet Count 195 K/mcL (140-400); Red Blood Count 3.36 M/mcL (4.19-5.50); Red Cell Distribution Width 17.6 % (11.5-14.5); Segmented Neutrophils % 90.4 %
[2018-05-18 06:27] LABS: BUN/Creatinine Ratio 37 (6-26); Blood Urea Nitrogen 28 mg/dL (8-23); Calcium 8.3 mg/dL (8.6-10.3); Carbon Dioxide 22 mEq/L (23-29); Chloride 109 mEq/L (98-107); Glucose 248 mg/dL (70-105); Osmolality,Calculated 298 (280-300); Potassium 3.9 mEq/L (3.5-5.1); Sodium 137 mEq/L (136-145); eGFR For Non-African Americans > 60 (> 60)
[2018-05-18 06:28] LABS: Magnesium 1.7 mg/dL (1.6-2.6); Phosphorous 1.9 mg/dL (2.7-4.5)
[2018-05-18] MEDS ORDERED: *HR* Labetalol 20 MG/4 ML SYRINGE IVP PRN (08:00)
--- NOTE | 2018-05-18 08:13 | General Surgery Progress Note ---
<Jarocho Swan - Last Filed: 05/18/18 08:10> Date of Encounter: 05/18/18 Time of Encounter: 07:45 - Assessment and Plan (1) Ulcer at site of surgical anastomosis following bypass of stomach Current Visit: Yes Status: Acute Subtotal Gastrectomy with Venkatesh En Y was successfully completed yesterday afternoon. Physical Exam is appropriate for POD #1. Reported 20 ml of gastric drainage as anticipated following such surgery. No evidence of acute bleeding. Vital signs normal. Plan: -maintain IV fluids and TPN -continue pain medications -start IV metoprolol 5q6 -start and teach patient to do incentive spirometry 10 times every hour while awake -Heparin 5000 units sub Q BID daily -Recommend PT and OT consult for mobilization and discharge planning. -Recommend social science instructor consult for future home health (2) Upper GI bleeding Current Visit: Yes Status: Acute See Assessment and Plan above. Subjective Patient reports: voiding w/o difficulty, flatus, no bowel movement, afebrile Narrative: Patient doing well following surgery. Denies abdominal pain, nausea, vomiting or shortness of breath. Objective Vital Signs - Last 8 Hours Temp Pulse Resp BP Pulse Ox 05/18/18 06:46 98.3 F 69 18 175/54 94 05/18/18 03:37 97.8 F 68 17 163/67 97 05/18/18 00:13 97.8 F 66 17 192/73 96 Intake and Output 05/17/18 05/18/18 05/18/18 23:59 07:59 15:59 Output Total 120 / 120 Balance -120 / -120 Output: Estimated Blood Loss 100 / 100 Gastric Drainage 20 / 20 Left Nare 20 / 20 Other: Blood Glucose* 256 267 - General physical appearance well developed, well nourished, no distress, severe distress - ENT normal pinna, normal nares, normal mucosa, no hearing loss, no congestion - Neck Neck exam: trachea midline - Respiratory normal expansion, normal respiratory effort, clear to percussion, clear to auscultation - Cardiovascular Cardiovascular exam: Present: RRR - Abdomen Abdomen: Present: soft, non tender - Integumentary no rash - Neurologic CN 2-12 grossly intact - Musculoskeletal normal gait, normal posture - Psychiatric oriented to time, oriented to person, oriented to place, speech is normal, memory intact - Labs 05/18/18 05:39 05/18/18 05:39 Diabetes panel 05/18/18 Range/Units 05:39 Sodium 137 (136-145) mEq/L Potassium 3.9 (3.5-5.1) mEq/L Chloride 109 H (98-107) mEq/L Carbon Dioxide 22 L (23-29) mEq/L BUN 28 H (8-23) mg/dL Creatinine 0.76 (0.70-1.30) mg/dL Glucose 248 H (70-105) mg/dL Calcium 8.3 L (8.6-10.3) mg/dL Calcium panel 05/18/18 05/18/18 Range/Units 05:39 05:39 Calcium 8.3 L (8.6-10.3) mg/dL Phosphorus 1.9 L (2.7-4.5) mg/dL Pituitary panel 05/18/18 Range/Units 05:39 Sodium 137 (136-145) mEq/L Potassium 3.9 (3.5-5.1) mEq/L Chloride 109 H (98-107) mEq/L Carbon Dioxide 22 L (23-29) mEq/L BUN 28 H (8-23) mg/dL Creatinine 0.76 (0.70-1.30) mg/dL Glucose 248 H (70-105) mg/dL Calcium 8.3 L (8.6-10.3) mg/dL Adrenal panel 05/18/18 Range/Units 05:39 Sodium 137 (136-145) mEq/L Potassium 3.9 (3.5-5.1) mEq/L Chloride 109 H (98-107) mEq/L Carbon Dioxide 22 L (23-29) mEq/L BUN 28 H (8-23) mg/dL Creatinine 0.76 (0.70-1.30) mg/dL Glucose 248 H (70-105) mg/dL Calcium 8.3 L (8.6-10.3) mg/dL - VTE Reasons for not Prescribing Prophylaxis: Medical contraindication Documentation of Mechanical Device: Intermittent pneumatic compression device Consult Discharge Plan - Plan Referrals: Cherri Amado WOOD GRINDER [Primary Care Provider] - <Hermilo Madden - Last Filed: 05/19/18 07:49> Date of Encounter: 05/18/18 Objective Vital Signs - Last 8 Hours Temp Pulse Resp BP Pulse Ox 05/19/18 03:37 98.9 F 81 16 173/66 96 Intake and Output 05/18/18 05/18/18 05/19/18 15:59 23:59 07:59 Intake Total 1141 / 1141 1100 / 1100 Output Total 400 / 400 Balance 1141 / 1141 1100 / 1100 -400 / -400 Intake: IV Fluids 1141 / 1141 1100 / 1100 0.9 % Sodium Chloride 1,000 ML 1000 / 1000 @ 25 mls/hr IVC .Q24H [facility] Rx#: [id number] Clinimix E 5%-15% SOLUTION 2, 891 / 891 000 ML @ 75 mls/hr IVC .Q24H [facility] with M.v.i. Adult 10 ml Rx# :[id number] Intralipid 20% 250 ML @ 21 mls/ 250 / 250 hr IVPB DAILY@1700 [facility] Rx#: [id number] Ancef 2,000 MG In 0.9 % Sodium 100 / 100 Chloride 100 ML @ 200 mls/hr IVPB Q8HR [facility] Rx#:[id number] Oral 0 / 0 Output: Urine 400 / 400 Other: Meal npo Weight 75 kg Blood Glucose* 142 153 159 Patient Weight 05/19/18 23:59 Weight 75 kg - Labs 05/19/18 04:00 05/19/18 04:00 Diabetes panel 05/19/18 Range/Units 04:00 Sodium 137 (136-145) mEq/L Potassium 3.9 (3.5-5.1) mEq/L Chloride 109 H (98-107) mEq/L Carbon Dioxide 22 L (23-29) mEq/L BUN 29 H (8-23) mg/dL Creatinine 0.82 (0.70-1.30) mg/dL Glucose 153 H (70-105) mg/dL Calcium 8.4 L (8.6-10.3) mg/dL Calcium panel 05/19/18 Range/Units 04:00 Calcium 8.4 L (8.6-10.3) mg/dL Pituitary panel 05/19/18 Range/Units 04:00 Sodium 137 (136-145) mEq/L Potassium 3.9 (3.5-5.1) mEq/L Chloride 109 H (98-107) mEq/L Carbon Dioxide 22 L (23-29) mEq/L BUN 29 H (8-23) mg/dL Creatinine 0.82 (0.70-1.30) mg/dL Glucose 153 H (70-105) mg/dL Calcium 8.4 L (8.6-10.3) mg/dL Adrenal panel 05/19/18 Range/Units 04:00 Sodium 137 (136-145) mEq/L Potassium 3.9 (3.5-5.1) mEq/L Chloride 109 H (98-107) mEq/L Carbon Dioxide 22 L (23-29) mEq/L BUN 29 H (8-23) mg/dL Creatinine 0.82 (0.70-1.30) mg/dL Glucose 153 H (70-105) mg/dL Calcium 8.4 L (8.6-10.3) mg/dL - Attending Attestation The history, physical exam, and medical decision making was performed by the medical student either while I was physically present and actively involved or I personally re-performed the exam and medical decision making. I have verified the accuracy of the medical student's documentation with regards to the history, physical exam findings, and medical decision making. The patient is seen and evaluated with the resident, clinical nurse practitioner , and medical student on morning rounds. His pain control is excellent. His lungs are clear area nasogastric tube drainage is bloody and minimal. He has no bowel sounds this point. Continue nasogastric tube drainage and supportive care. Hermilo Madden MD FACS
[2018-05-18] MEDS: OXYCODONE Oral CONC 10 MG/0.5 ML ORAL.SYG SL PRN ×3 (08:33→15:20)
[2018-05-18] MEDS: Nicotine 7 MG PATCH.TD24 TD SCH (08:34)
[2018-05-18] MEDS ORDERED: Iron Sucrose Complex 250 MG in 0.9 % Sodium Chloride 250 ML IVPB SCH (09:00)
--- NOTE | 2018-05-18 12:08 | Internal Med Progress Note ---
Hospitalist Progress Note - Encounter Date of Encounter: 05/18/18 Time of Encounter: 09:10 - Subjective Interval History: Overnight event noted. Patient underwent subtotal gastrectomy with Venkatesh-en-Y uneventfully last night. Complains of mild soreness over the op site but denies any fever/chills or N/V. No chest pain, lightheadedness. - Exam Vitals: Temp Pulse Resp BP Pulse Ox 97.8 F 66 16 166/53 95 05/18/18 11:15 05/18/18 11:15 05/18/18 11:15 05/18/18 11:15 05/18/18 11:15 Exam: General: Alert and oriented, not in acute distress. HEENT: NG tube in situ Cardiovascular:Normal S1 & S2, No JVD. Pulse regular. Lungs: clear to auscultation, no wheezes/rales Abdomen:Soft, non-tender Extremities:No deformity or swelling Neurological:Normal cognition and motor skills. Non-focal - Assessment and Plan (1) Adenocarcinoma Current Visit: Yes Status: Acute Assessment and Plan: presented with UBT -05/[address] Joseph, with large anastomotic ulcer -> path: adenoCA CT did not show any sites of metastasis post-op care per surgery, incentive beto, early mobilization continue TPN for now (2) Upper GI bleeding Current Visit: Yes Status: Acute Assessment and Plan: due to the above dx, required 7 units of transfusion so far Underwent op yesterday for adenocarcinoma Hemoglobin stable at 10 today restart heparin SQ for DVT prophylaxis (3) Elevated troponin Current Visit: Yes Status: Acute Assessment and Plan: Most likely Type II NSTEMI in setting of acute blood loss anemia, though given his pmhx/tobacco use, cannot rule out Type I without LHC -0.1 at OSH, asx, no ischemic ekg changes on review of EKG -trop peak at 0.45 and down trended - Echo showed EF 60%, mild LVH, mild diastolic dysfunction not graded, hypokinetic basal inferior wall - ASA on hold due to the above -resume home statin when able to take by mouth - bb in IV form while on TPN cardiology rec appreciated: No cardiac rehab consult is warranted. With wall motion abnormality on echo ideally would recommend LHC, however patient is not a candidate with acute GI bleed. Can consider outpatient ischemic evaluation. 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 MRI kidneys without with gadolinium recommended for additional characterization. 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 No mass lesion or enhancement abnormality. Unlikely to represent mets (7) Right middle lobe pulmonary nodule Current Visit: Yes Status: Acute Assessment and Plan: Incidental finding on CT a/p shows right middle lobe 4 mm nodule in setting of this high risk patient this will need CT follow up in 12 months as an outpatient (8) Tobacco abuse Current Visit: No Status: Chronic Assessment and Plan: education nicotine patch DVT Prophylaxis: SQ heparin started today - Time Spent with Patient Total time spent is greater than 50% in coordination of care (as documented) at patient's floor/unit and/or counseling patient: Greater than 35 minutes Plan of Care Discussed with: patient Internal Medicine: Result - Labs CBC & Chem 7: 05/18/18 05:39 05/18/18 05:39 Labs: Short CBC 05/18/18 05/18/18 Range/Units 00:56 05:39 WBC 15.1 H D (4.3-11.1) K/mcL Hgb 10.3 L 10.1 L (12.9-16.9) g/dL Hct 30.9 L 31.3 L (37.5-50.1) % Plt Count 195 (140-400) K/mcL Neutrophils # 13.7 H (1.6-8.9) K/mcL BMP 05/18/18 05:39 Sodium 137 Potassium 3.9 Chloride 109 H Carbon Dioxide 22 L BUN 28 H Creatinine 0.76 Glucose 248 H Calcium 8.3 L - ABG Interpretation ABG results: PT/INR, D-dimer PT 12.1 Seconds (9.4-12.1) 05/17/18 04:45 - VTE Reasons for not Prescribing Prophylaxis: Medical contraindication Documentation of Mechanical Device: Intermittent pneumatic compression device Consult Discharge Plan - Plan Referrals: Cherri Amado CNP [Primary Care Provider] -
[2018-05-18] MEDS: *HR* Heparin 5,000 UNIT/ML VIAL SQ SCH ×2 (12:29→17:22)
[2018-05-18] MEDS: *HR* Metoprolol 5 MG/5 ML VIAL IVP SCH ×2 (12:30→17:23)
[2018-05-18] MEDS ORDERED: Clinimix E 5%-15% SOLUTION 2,000 ML with MVI, adult with vitamin K 10 ML IVC SCH (17:00)
[2018-05-18] MEDS: 0.9 % Sodium Chloride 1,000 ML IVC SCH (17:38)
[2018-05-19] MEDS: Insulin LISPRO 300 UNITS/3 ML VIAL SQ SCH ×6 (01:31→20:54)
[2018-05-19] MEDS: *HR* Metoprolol 5 MG/5 ML VIAL IVP SCH ×4 (01:31→17:44)
[2018-05-19 05:37] LABS: Hemoglobin 9.5 g/dL (12.9-16.9); Mean Corpuscular HGB Conc 31.7 g/dL (31.6-35.5); Mean Corpuscular Volume 94.6 fL (83.0-100.0); Mean Platelet Volume 11.6 fL (9.4-12.4); Platelet Count 219 K/mcL (140-400); Red Blood Count 3.17 M/mcL (4.19-5.50); Red Cell Distribution Width 18.8 % (11.5-14.5)
[2018-05-19 05:56] LABS: BUN/Creatinine Ratio 35 (6-26); Blood Urea Nitrogen 29 mg/dL (8-23); Calcium 8.4 mg/dL (8.6-10.3); Carbon Dioxide 22 mEq/L (23-29); Chloride 109 mEq/L (98-107); Glucose 153 mg/dL (70-105); Osmolality,Calculated 293 (280-300); Potassium 3.9 mEq/L (3.5-5.1); Sodium 137 mEq/L (136-145); eGFR For Non-African Americans > 60 (> 60)
[2018-05-19] MEDS: *HR* Heparin 5,000 UNIT/ML VIAL SQ SCH ×2 (06:18→17:44)
[2018-05-19] MEDS: Pantoprazole 40 MG VIAL IVP SCH ×2 (06:18→17:44)
[2018-05-19] MEDS: Nicotine 7 MG PATCH.TD24 TD SCH (07:46)
[2018-05-19] MEDS: OXYCODONE Oral CONC 10 MG/0.5 ML ORAL.SYG SL PRN ×2 (07:46→13:40)
--- NOTE | 2018-05-19 09:47 | General Surgery Progress Note ---
<Ida Luna - Last Filed: 05/19/18 10:17> Date of Encounter: 05/19/18 Time of Encounter: 09:30 - Assessment and Plan (1) Adenocarcinoma Current Visit: Yes Status: Acute POD #2 Subtotal gastrectomy with Venkatesh-en-Y reconstruction (+30%, reoperation and takedown of Billroth II with previous gastrectomy) with Dr. Madden Pathology pending Biopsies per EGD consistent with adenocarcinoma NG "fell out" last evening- plan to leave NG out for now NPO IV fluids- 25ml/hour TPN for nutritional support Supportive care PPI therapy BID Daily incision care PT/OT for mobilization Hgb stable- 9.5 (10.1) Labs in am- CBC, BMP, Mg, Phos (2) DVT prophylaxis Current Visit: Yes Status: Acute Heparin 5,000 units SQ twice daily for DVT prophylaxis EPCDs to bilateral lower extremities for DVT prophylaxis Out of bed with assistance Subjective Patient reports: no new complaints, feels better, voiding w/o difficulty, flatus , afebrile, other (NG tube "fell out" last night- patient denies any nausea/ vomiting/bloating) Objective Vital Signs - Last 8 Hours Temp Pulse Resp BP Pulse Ox 05/19/18 08:27 98.2 F 85 16 166/70 96 05/19/18 08:03 96 05/19/18 03:37 98.9 F 81 16 173/66 96 Intake and Output 05/18/18 05/19/18 05/19/18 23:59 07:59 15:59 Intake Total 1100 / 1100 0 / 0 Output Total 400 / 400 200 / 200 Balance 1100 / 1100 -400 / -400 -200 / -200 Intake: IV Fluids 1100 / 1100 0.9 % Sodium Chloride 1,000 ML 1000 / 1000 @ 25 mls/hr IVC .Q24H [facility] Rx#: [id number] Ancef 2,000 MG In 0.9 % Sodium 100 / 100 Chloride 100 ML @ 200 mls/hr IVPB Q8HR [facility] Rx#:[id number] Oral 0 / 0 0 / 0 Output: Urine 400 / 400 200 / 200 Other: Meal npo Weight 75 kg Blood Glucose* 153 159 145 Patient Weight 05/19/18 23:59 Weight 75 kg - General physical appearance well developed, well nourished, no distress, no pain - Eyes PERRL, normal ocular movement - ENT normal mucosa, atraumatic, normocephalic - Neck Neck exam: trachea midline - Respiratory normal respiratory effort, clear to auscultation, other (diminished bibasilar bases) - Cardiovascular Cardiovascular exam: Present: RRR - Abdomen Abdomen: Present: bowel sounds present (hypoactive), soft, non tender - Incision Incision: Present: clean and dry, intact - Neurologic CN 2-12 grossly intact - Psychiatric oriented to time, oriented to person, oriented to place, speech is normal, memory intact - Labs 05/19/18 04:00 05/19/18 04:00 Diabetes panel 05/19/18 Range/Units 04:00 Sodium 137 (136-145) mEq/L Potassium 3.9 (3.5-5.1) mEq/L Chloride 109 H (98-107) mEq/L Carbon Dioxide 22 L (23-29) mEq/L BUN 29 H (8-23) mg/dL Creatinine 0.82 (0.70-1.30) mg/dL Glucose 153 H (70-105) mg/dL Calcium 8.4 L (8.6-10.3) mg/dL Calcium panel 05/19/18 Range/Units 04:00 Calcium 8.4 L (8.6-10.3) mg/dL Pituitary panel 05/19/18 Range/Units 04:00 Sodium 137 (136-145) mEq/L Potassium 3.9 (3.5-5.1) mEq/L Chloride 109 H (98-107) mEq/L Carbon Dioxide 22 L (23-29) mEq/L BUN 29 H (8-23) mg/dL Creatinine 0.82 (0.70-1.30) mg/dL Glucose 153 H (70-105) mg/dL Calcium 8.4 L (8.6-10.3) mg/dL Adrenal panel 05/19/18 Range/Units 04:00 Sodium 137 (136-145) mEq/L Potassium 3.9 (3.5-5.1) mEq/L Chloride 109 H (98-107) mEq/L Carbon Dioxide 22 L (23-29) mEq/L BUN 29 H (8-23) mg/dL Creatinine 0.82 (0.70-1.30) mg/dL Glucose 153 H (70-105) mg/dL Calcium 8.4 L (8.6-10.3) mg/dL - VTE Reasons for not Prescribing Prophylaxis: Medical contraindication Documentation of Mechanical Device: Intermittent pneumatic compression device Consult Discharge Plan - Plan Referrals: Cherri Amado CNP [Primary Care Provider] - - Attending Attestation For this encounter, I have reviewed the OIL CHANGER or PA documentation, treatment plan, and medical decision making; and I have had face to face time with this patient. <ChanoYolyn Flakita - Last Filed: 05/19/18 15:39> Date of Encounter: 05/19/18 Objective Vital Signs - Last 8 Hours Temp Pulse Resp BP Pulse Ox 05/19/18 11:54 98.2 F 86 16 163/67 95 05/19/18 08:27 98.2 F 85 16 166/70 96 05/19/18 08:03 96 Intake and Output 05/18/18 05/19/18 05/19/18 23:59 07:59 15:59 Intake Total 1100 / 1100 0 / 0 Output Total 400 / 400 500 / 500 Balance 1100 / 1100 -400 / -400 -500 / -500 Intake: IV Fluids 1100 / 1100 0.9 % Sodium Chloride 1,000 ML 1000 / 1000 @ 25 mls/hr IVC .Q24H [facility] Rx#: [id number] Ancef 2,000 MG In 0.9 % Sodium 100 / 100 Chloride 100 ML @ 200 mls/hr IVPB Q8HR [facility] Rx#:[id number] Oral 0 / 0 0 / 0 Output: Urine 400 / 400 500 / 500 Other: Meal npo Weight 75 kg Blood Glucose* 153 159 151 Patient Weight 05/19/18 23:59 Weight 75 kg - Labs 05/19/18 04:00 05/19/18 04:00 Diabetes panel 05/19/18 Range/Units 04:00 Sodium 137 (136-145) mEq/L Potassium 3.9 (3.5-5.1) mEq/L Chloride 109 H (98-107) mEq/L Carbon Dioxide 22 L (23-29) mEq/L BUN 29 H (8-23) mg/dL Creatinine 0.82 (0.70-1.30) mg/dL Glucose 153 H (70-105) mg/dL Calcium 8.4 L (8.6-10.3) mg/dL Calcium panel 05/19/18 Range/Units 04:00 Calcium 8.4 L (8.6-10.3) mg/dL Phosphorus 2.7 (2.7-4.5) mg/dL Pituitary panel 05/19/18 Range/Units 04:00 Sodium 137 (136-145) mEq/L Potassium 3.9 (3.5-5.1) mEq/L Chloride 109 H (98-107) mEq/L Carbon Dioxide 22 L (23-29) mEq/L BUN 29 H (8-23) mg/dL Creatinine 0.82 (0.70-1.30) mg/dL Glucose 153 H (70-105) mg/dL Calcium 8.4 L (8.6-10.3) mg/dL Adrenal panel 05/19/18 Range/Units 04:00 Sodium 137 (136-145) mEq/L Potassium 3.9 (3.5-5.1) mEq/L Chloride 109 H (98-107) mEq/L Carbon Dioxide 22 L (23-29) mEq/L BUN 29 H (8-23) mg/dL Creatinine 0.82 (0.70-1.30) mg/dL Glucose 153 H (70-105) mg/dL Calcium 8.4 L (8.6-10.3) mg/dL - Attending Attestation I have personally performed a face to face evaluation on this patient. I have reviewed and agree with the care plan. History and Exam by me shows: The patient is seen and evaluated on morning rounds with the medical student. I discussed the patient's care with tissue. Patient has a little more incisional pain today is being treated adequately. His nasogastric tube came out yesterday. We did not reinsert this for risk of damage to the proximal anastomosis area we will plan a Gastrografin swallow at the end of the week. We may be able to start clear liquids at that time continue supportive care Hermilo Madden MD FACS
--- NOTE | 2018-05-19 11:28 | Internal Med Progress Note ---
Hospitalist Progress Note - Encounter Date of Encounter: 05/19/18 Time of Encounter: 09:30 - Subjective Interval History: Pain at the op site is improving. No fever/chills, shortness of breath, cough, or N/V. Has been voiding and passing flatus. - Exam Vitals: Temp Pulse Resp BP Pulse Ox 98.2 F 85 16 166/70 96 05/19/18 08:27 05/19/18 08:27 05/19/18 08:27 05/19/18 08:27 05/19/18 08:27 Exam: General: Alert and oriented, not in acute distress. HEENT: NG tube in situ Cardiovascular:Normal S1 & S2, No JVD. Pulse regular. Lungs: clear to auscultation, no wheezes/rales Abdomen:Soft, non-tender, incision site appears dry and clean. Yury in place Extremities:No deformity or swelling Neurological:Normal cognition and motor skills. Non-focal - Assessment and Plan (1) Adenocarcinoma Current Visit: Yes Status: Acute Assessment and Plan: presented with UBGIT -05/[address] Joseph, with large anastomotic ulcer -> path: adenoCA CT did not show any sites of metastasis s/p Subtotal gastrectomy with Venkatseh-en-Y reconstruction, POD2 post-op care per surgery, incentive beto, early mobilization NG fell off yesterday, noted surgery's plan to leave NG out for now continue TPN for now (2) Essential hypertension Current Visit: No Status: Chronic Assessment and Plan: was on lisinopril/hctz 20/25 mg at home currently on TPN, BP likely aggravated by post-op pain increase IV metoprolol to 5mg Q6. Continue PRN labetalol (3) Leukocytosis Current Visit: Yes Status: Acute Assessment and Plan: Likely reactive in the setting of recent surgery would monitor (4) Upper GI bleeding Current Visit: Yes Status: Acute Assessment and Plan: due to the above dx, required 7 units of transfusion so far Underwent op 05/17, Hb stable heparin SQ started for DVT prophylaxis (5) Elevated troponin Current Visit: Yes Status: Acute Assessment and Plan: Most likely Type II NSTEMI in setting of acute blood loss anemia, though given his pmhx/tobacco use, cannot rule out Type I without LHC -0.1 at OSH, asx, no ischemic ekg changes on review of EKG -trop peak at 0.45 and down trended - Echo showed EF 60%, mild LVH, mild diastolic dysfunction not graded, hypokinetic basal inferior wall - ASA on hold due to the above -resume home statin when able to take by mouth - bb in IV form while on TPN cardiology rec appreciated: No cardiac rehab consult is warranted. With wall motion abnormality on echo ideally would recommend LHC, however patient is not a candidate with acute GI bleed. Can consider outpatient ischemic evaluation. 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 MRI kidneys without with gadolinium recommended for additional characterization. 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 No mass lesion or enhancement abnormality. Unlikely to represent mets (8) Right middle lobe pulmonary nodule Current Visit: Yes Status: Acute Assessment and Plan: Incidental finding on CT a/p shows right middle lobe 4 mm nodule in setting of this high risk patient this will need CT follow up in 12 months as an outpatient (9) Tobacco abuse Current Visit: No Status: Chronic Assessment and Plan: education nicotine patch DVT Prophylaxis: Sq heparin - Time Spent with Patient Total time spent is greater than 50% in coordination of care (as documented) at patient's floor/unit and/or counseling patient: Plan of Care Discussed with: patient Internal Medicine: Result - Labs CBC & Chem 7: 05/19/18 04:00 05/19/18 04:00 Labs: Short CBC 05/19/18 Range/Units 04:00 WBC 16.1 H (4.3-11.1) K/mcL Hgb 9.5 L (12.9-16.9) g/dL Hct 30.0 L (37.5-50.1) % Plt Count 219 (140-400) K/mcL BMP 05/19/18 04:00 Sodium 137 Potassium 3.9 Chloride 109 H Carbon Dioxide 22 L BUN 29 H Creatinine 0.82 Glucose 153 H Calcium 8.4 L - ABG Interpretation ABG results: PT/INR, D-dimer PT 12.1 Seconds (9.4-12.1) 05/17/18 04:45 - VTE Reasons for not Prescribing Prophylaxis: Medical contraindication Documentation of Mechanical Device: Intermittent pneumatic compression device Consult Discharge Plan - Plan Referrals: Cherri Amado, RUSTAM [Primary Care Provider] - (3) Leukocytosis Qualifiers: Leukocytosis type: unspecified Qualified Code(s): D72.829 - Elevated white blood cell count, unspecified
[2018-05-19 12:13] LABS: Magnesium 1.8 mg/dL (1.6-2.6); Phosphorous 2.7 mg/dL (2.7-4.5)
[2018-05-19] MEDS ORDERED: Clinimix E 5%-15% SOLUTION 2,000 ML with MVI, adult with vitamin K 10 ML IVC SCH (17:00)
--- NOTE | 2018-05-19 22:00 | Operative Note ---
Date of procedure: 05/17/18 Pre-op diagnosis: gastric cancer Post-op diagnosis: same Procedure: partial gastrectomy excision of prior bilroth II reconstruction kim en y reconstruction Implants: none Complications: none Anesthesia: GETA Local Anesthetics: 0.5% Sensorcaine HCL SubQ (cc) Surgeon: Hermilo Madden Was there an shipping assistant present: Yes Home Health Physical Therapist: Anand Suero Estimated blood loss (cc): 100 Specimen: gastric remnant, small bowel Condition: stable Disposition: PACU Procedure in Detail: the patient was brought into the operating room suite. he was placed in the supine position. mechanical dvt prophylaxis was placed. The patient underwent underwent smooth induction of anesthesia. preoperative antibiotics were given. the patient was prepped and draped in the usual fashion. a timeout was held identifying correct patient, pathology, procedure, and physician. Midline incision was made and we entered the abdomen using electorcautery, tension and counter-tension. There was an expected amount of scar tissue. We were able to lyse adhesions beginning with the under surface of the liver. We continued to lyse adhesions until we were able to clearly identify anatomy. It was clear to us that he had a prior biliroth II anastamosis with an antecolic orientation. We continued our dissection and dissected the transverse colon away from the small bowel mesentery and both limbs of his prior reconstruction. After isolating the afferent and efferent limbs, we elected to perform our enteric stapled transection. By doing so we were able to dissect the stomach off the pancreas. We then focused our attention to the short gastrics and divided them one by one until we were able to identify an appropriate 5cm superior margin from the mass. Using the hand held stapler, we divided the stomach with BARBY and the specimen was passed off the field. We then began our reconstruction. We angelica the kim limb through the transverse colon mesentery in a retrocolic fashion and in a two layer fashion, we created our anastamosis. We then focused on the distal anastamosis. We created our anastamosis in like fashion. We then closed the mesenteric defects to prevent a future internal hernia. we then closed the abdomen in a running fashion with the looped PDS suture. Reapproximated the deep dermal layer with the vicryl suture and closed the skin with jessica. This concluded our procedure. The patient tolerated the procedure well and was escorted to PACU in stable condition.
[2018-05-20] MEDS: *HR* Metoprolol 5 MG/5 ML VIAL IVP SCH ×5 (00:42→23:25)
[2018-05-20] MEDS: Insulin LISPRO 300 UNITS/3 ML VIAL SQ SCH ×6 (00:45→21:02)
[2018-05-20] MEDS: Pantoprazole 40 MG VIAL IVP SCH ×2 (05:35→17:57)
[2018-05-20] MEDS: *HR* Heparin 5,000 UNIT/ML VIAL SQ SCH ×2 (05:35→17:56)
[2018-05-20 07:04] LABS: BUN/Creatinine Ratio 33 (6-26); Blood Urea Nitrogen 25 mg/dL (8-23); Calcium 8.5 mg/dL (8.6-10.3); Carbon Dioxide 23 mEq/L (23-29); Chloride 106 mEq/L (98-107); Glucose 131 mg/dL (70-105); Magnesium 1.9 mg/dL (1.6-2.6); Osmolality,Calculated 286 (280-300); Potassium 4.1 mEq/L (3.5-5.1); Sodium 135 mEq/L (136-145); eGFR For Non-African Americans > 60 (> 60)
[2018-05-20 07:11] LABS: Basophils % 0.2 %; Eosinophils % 0.3 %; Hemoglobin 9.1 g/dL (12.9-16.9); Immature Granulocytes % 0.4 % (0-4); Lymphocytes # 0.6 K/mcL (0.6-4.6); Lymphocytes % 6.5 %; Mean Corpuscular HGB Conc 31.4 g/dL (31.6-35.5); Mean Corpuscular Hemoglobin 30.4 pg (28.0-33.3); Mean Platelet Volume 11.1 fL (9.4-12.4); Monocytes # 1.1 K/mcL (0.0-1.3); Monocytes % 12.3 %; Neutrophils # 7.5 K/mcL (1.6-8.9); Platelet Count 187 K/mcL (140-400); Red Blood Count 2.99 M/mcL (4.19-5.50); Red Cell Distribution Width 18.7 % (11.5-14.5); Segmented Neutrophils % 80.3 %
--- NOTE | 2018-05-20 10:19 | General Surgery Progress Note ---
<Mayra Knight - Last Filed: 05/20/18 10:14> Date of Encounter: 05/20/18 Time of Encounter: 07:00 - Assessment and Plan (1) Ulcer at site of surgical anastomosis following bypass of stomach Current Visit: Yes Status: Acute Date of procedure: 05/17/18 Pre-op diagnosis: Gastric cancer Post-op diagnosis: same Procedure: Subtotal gastrectomy with Venkatesh-en-Y reconstruction (+30%, reoperation and takedown of Billroth II with previous gastrectomy) Anesthesia: GETA Surgeon: Hermilo Madden Was there an emergency veterinary assistant present: Yes Sign Language Interpreter: Anand Suero Estimated blood loss (cc): 100 POD#3 as above. Pathology remains pending. CXR is without evidenc of PNA. Gastrograffin swallow is without evidence of extravasation. OK to start limited clears Plan: continue supportive care and discomfort management incentive spirometry 10 times every hour while awake limited clear liquid diet (300 ML's per shift, no carbonation). Must be out of bed to chair for clear liquid trays. Continue PT/OT for mobilization and discharge planning ambulate as tolerated EP CDs while in bed continue G.I. and DVT prophylaxis (2) Upper GI bleeding Current Visit: Yes Status: Acute see above (3) Adenocarcinoma Current Visit: Yes Status: Acute Biopsies per EGD consistent with adenocarcinoma. Surgical biopsies remain pending. See assessment and plan above for further information. (4) Electrolyte imbalance Current Visit: Yes Status: Acute Replete lytes as indicated (5) Protein calorie malnutrition Current Visit: Yes Status: Acute Continue TPN Qualifiers: Protein-calorie malnutrition severity: unspecified severity Qualified Code( s): E46 - Unspecified protein-calorie malnutrition Subjective Patient reports: no new complaints, feels better, still having pain, pain is less, voiding w/o difficulty, flatus, bowel movement, afebrile Objective Vital Signs - Last 8 Hours Temp Pulse Resp BP Pulse Ox 05/20/18 08:07 98.0 F 78 19 146/52 95 05/20/18 03:45 99.2 F 77 16 131/73 93 Intake and Output 05/19/18 05/20/18 05/20/18 23:59 07:59 15:59 Intake Total 1444 / 1444 Balance 1444 / 1444 Intake: IV Fluids 1444 / 1444 Clinimix E 5%-15% SOLUTION 2, 1444 / 1444 000 ML @ 60 mls/hr IVC .Q24H [facility] with M.v.i. Adult 10 ml Rx# :[id number] Other: # Voids 1 1 Weight 75.3 kg Blood Glucose* 151 151 142 - General physical appearance no distress, no pain - Eyes normal ocular movement - ENT atraumatic, normocephalic - Neck Neck exam: trachea midline - Respiratory normal expansion, normal respiratory effort, clear to auscultation - Cardiovascular Cardiovascular exam: Present: RRR - Abdomen Abdomen: Present: bowel sounds present, soft, tender (Expected postoperative) Hernia: none - Integumentary no abnormal pigmentation - Neurologic normal sensation - Musculoskeletal normal posture - Psychiatric oriented to time, oriented to person, oriented to place, speech is normal, memory intact - Labs 05/20/18 06:53 05/20/18 06:15 Diabetes panel 05/19/18 05/20/18 Range/Units 04:00 06:15 Sodium 137 135 L (136-145) mEq/L Potassium 3.9 4.1 (3.5-5.1) mEq/L Chloride 109 H 106 (98-107) mEq/L Carbon Dioxide 22 L 23 (23-29) mEq/L BUN 29 H 25 H (8-23) mg/dL Creatinine 0.82 0.76 (0.70-1.30) mg/dL Glucose 153 H 131 H (70-105) mg/dL Calcium 8.4 L 8.5 L (8.6-10.3) mg/dL Calcium panel 05/19/18 05/20/18 Range/Units 04:00 06:15 Calcium 8.4 L 8.5 L (8.6-10.3) mg/dL Phosphorus 2.7 2.0 L (2.7-4.5) mg/dL Pituitary panel 05/19/18 05/20/18 Range/Units 04:00 06:15 Sodium 137 135 L (136-145) mEq/L Potassium 3.9 4.1 (3.5-5.1) mEq/L Chloride 109 H 106 (98-107) mEq/L Carbon Dioxide 22 L 23 (23-29) mEq/L BUN 29 H 25 H (8-23) mg/dL Creatinine 0.82 0.76 (0.70-1.30) mg/dL Glucose 153 H 131 H (70-105) mg/dL Calcium 8.4 L 8.5 L (8.6-10.3) mg/dL Adrenal panel 05/19/18 05/20/18 Range/Units 04:00 06:15 Sodium 137 135 L (136-145) mEq/L Potassium 3.9 4.1 (3.5-5.1) mEq/L Chloride 109 H 106 (98-107) mEq/L Carbon Dioxide 22 L 23 (23-29) mEq/L BUN 29 H 25 H (8-23) mg/dL Creatinine 0.82 0.76 (0.70-1.30) mg/dL Glucose 153 H 131 H (70-105) mg/dL Calcium 8.4 L 8.5 L (8.6-10.3) mg/dL - VTE Reasons for not Prescribing Prophylaxis: Medical contraindication Documentation of Mechanical Device: Intermittent pneumatic compression device Consult Discharge Plan - Plan Referrals: Cherri Amado CNP [Primary Care Provider] - <Hermilo Madden - Last Filed: 05/20/18 17:02> Date of Encounter: 05/20/18 Objective Vital Signs - Last 8 Hours Temp Pulse Resp BP Pulse Ox 05/20/18 16:22 98.3 F 78 19 183/52 95 05/20/18 11:44 98.9 F 65 17 182/65 95 Intake and Output 05/20/18 05/20/18 05/20/18 07:59 15:59 23:59 Intake Total 1000 / 1000 Balance 1000 / 1000 Intake: IV Fluids 1000 / 1000 0.9 % Sodium Chloride 1,000 ML 1000 / 1000 @ 25 mls/hr IVC .Q24H [facility] Rx#: [id number] Other: # Voids 1 Blood Glucose* 151 156 153 - Labs 05/20/18 06:53 05/20/18 06:15 Diabetes panel 05/20/18 Range/Units 06:15 Sodium 135 L (136-145) mEq/L Potassium 4.1 (3.5-5.1) mEq/L Chloride 106 (98-107) mEq/L Carbon Dioxide 23 (23-29) mEq/L BUN 25 H (8-23) mg/dL Creatinine 0.76 (0.70-1.30) mg/dL Glucose 131 H (70-105) mg/dL Calcium 8.5 L (8.6-10.3) mg/dL Calcium panel 05/20/18 Range/Units 06:15 Calcium 8.5 L (8.6-10.3) mg/dL Phosphorus 2.0 L (2.7-4.5) mg/dL Pituitary panel 05/20/18 Range/Units 06:15 Sodium 135 L (136-145) mEq/L Potassium 4.1 (3.5-5.1) mEq/L Chloride 106 (98-107) mEq/L Carbon Dioxide 23 (23-29) mEq/L BUN 25 H (8-23) mg/dL Creatinine 0.76 (0.70-1.30) mg/dL Glucose 131 H (70-105) mg/dL Calcium 8.5 L (8.6-10.3) mg/dL Adrenal panel 05/20/18 Range/Units 06:15 Sodium 135 L (136-145) mEq/L Potassium 4.1 (3.5-5.1) mEq/L Chloride 106 (98-107) mEq/L Carbon Dioxide 23 (23-29) mEq/L BUN 25 H (8-23) mg/dL Creatinine 0.76 (0.70-1.30) mg/dL Glucose 131 H (70-105) mg/dL Calcium 8.5 L (8.6-10.3) mg/dL - Attending Attestation I have personally performed a face to face evaluation on this patient. I have reviewed and agree with the care plan. History and Exam by me shows: The patient is seen and evaluated with the clinical nurse practitioner medical student the morning. He has no nausea or vomiting. I did a Gastrografin swallow. The gastrojejunostomy was widely patent. We will start him on some clear liquids today. Hermilo Madden MD FACS
[2018-05-20] MEDS: Nicotine 7 MG PATCH.TD24 TD SCH (10:27)
[2018-05-20] MEDS: 0.9 % Sodium Chloride 1,000 ML IVC SCH ×2 (10:28)
--- NOTE | 2018-05-20 12:02 | Internal Med Progress Note ---
Hospitalist Progress Note - Encounter Date of Encounter: 05/20/18 Time of Encounter: 09:55 - Subjective Interval History: No new complaints today. Denies any fever/chills, shortness of breath, cough, worsening abdominal pain, or N/V. Has been voiding and passing flatus. - Exam Vitals: Temp Pulse Resp BP Pulse Ox 98.9 F 65 17 182/65 95 05/20/18 11:44 05/20/18 11:44 05/20/18 11:44 05/20/18 11:44 05/20/18 11:44 Exam: General: Alert and oriented, not in acute distress. HEENT: NG tube in situ Cardiovascular:Normal S1 & S2, No JVD. Pulse regular. Lungs: clear to auscultation, no wheezes/rales Abdomen:Soft, non-tender, incision site appears dry and clean. Yury in place Extremities:No deformity or swelling Neurological:Normal cognition and motor skills. Non-focal - Assessment and Plan (1) Adenocarcinoma Current Visit: Yes Status: Acute Assessment and Plan: presented with UBGIT -05/[address] Joseph, with large anastomotic ulcer -> path: adenoCA CT did not show any sites of metastasis s/p Subtotal gastrectomy with Venkatesh-en-Y reconstruction, POD3 post-op care per surgery, incentive beto, early mobilization advancing diet to limited clear liquid per surgery continue TPN for now (2) Essential hypertension Current Visit: No Status: Chronic Assessment and Plan: was on lisinopril/hctz 20/25 mg at home currently on TPN, BP likely aggravated by post-op pain continue IV metoprolol 5mg Q6 with PRN labetalol (3) Upper GI bleeding Current Visit: Yes Status: Acute Assessment and Plan: due to the above dx, required 7 units of transfusion so far Underwent op 05/17, Hb stable around 9-10 heparin SQ started for DVT prophylaxis (4) Leukocytosis Current Visit: Yes Status: Resolved Assessment and Plan: Likely reactive in the setting of recent surgery, normalized today no PNA on CXR today (5) Elevated troponin Current Visit: Yes Status: Acute Assessment and Plan: Most likely Type II NSTEMI in setting of acute blood loss anemia, though given his pmhx/tobacco use, cannot rule out Type I without LHC -0.1 at OSH, asx, no ischemic ekg changes on review of EKG -trop peak at 0.45 and down trended - Echo showed EF 60%, mild LVH, mild diastolic dysfunction not graded, hypokinetic basal inferior wall - ASA on hold due to the above -resume home statin when able to take by mouth - bb in IV form while on TPN cardiology rec appreciated: No cardiac rehab consult is warranted. With wall motion abnormality on echo ideally would recommend LHC, however patient is not a candidate with acute GI bleed. Can consider outpatient ischemic evaluation. 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 MRI kidneys without with gadolinium recommended for additional characterization. 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 No mass lesion or enhancement abnormality. Unlikely to represent mets (8) Right middle lobe pulmonary nodule Current Visit: Yes Status: Acute Assessment and Plan: Incidental finding on CT a/p shows right middle lobe 4 mm nodule in setting of this high risk patient this will need CT follow up in 12 months as an outpatient (9) Tobacco abuse Current Visit: No Status: Chronic Assessment and Plan: education nicotine patch - Time Spent with Patient Total time spent is greater than 50% in coordination of care (as documented) at patient's floor/unit and/or counseling patient: Plan of Care Discussed with: patient Internal Medicine: Result - Labs CBC & Chem 7: 05/20/18 06:53 05/20/18 06:15 Labs: Short CBC 05/20/18 Range/Units 06:53 WBC 9.3 (4.3-11.1) K/mcL Hgb 9.1 L (12.9-16.9) g/dL Hct 29.0 L (37.5-50.1) % Plt Count 187 (140-400) K/mcL Neutrophils # 7.5 (1.6-8.9) K/mcL BMP 05/19/18 05/20/18 04:00 06:15 Sodium 137 135 L Potassium 3.9 4.1 Chloride 109 H 106 Carbon Dioxide 22 L 23 BUN 29 H 25 H Creatinine 0.82 0.76 Glucose 153 H 131 H Calcium 8.4 L 8.5 L - ABG Interpretation ABG results: PT/INR, D-dimer PT 12.1 Seconds (9.4-12.1) 05/17/18 04:45 - Impressions Impressions Barium Swallow X-Ray 05/20/18 07:44 IMPRESSION: 1. New changes related to subtotal gastrectomy with Venkatesh-en-Y anastomosis. 2. Indistinct curvilinear density medial to the Venkatesh loop inferior to a staple line and surgical clips appears unchanged on all postcontrast images and could be related to suture, clips, or perhaps reflux into remnant duodenum if not resected. However, a tiny leak or sinus tract could appear similar. Consider confirmation with an abdomen CT. Results were called by Dr. Mateo Knapp MD to Dr. Montez on 05/20/2018 at 09:55. 3. Pneumoperitoneum likely related to the recent surgery. 4. Minimal tertiary contractions in the distal esophagus likely of no clinical consequence. D/ / Mateo Knapp MD / Mateo Knapp MD Interpreting Provider: Mateo Knapp MD Chest X-Ray 05/20/18 07:44 IMPRESSION: Large amount of lucency underneath the right hemidiaphragm. Patient is reported to be status post gastrectomy. Bibasilar pulmonary opacities with small bilateral pleural effusions. Superimposed pneumonia or aspiration would not be excluded. Clinical correlation and/or follow-up examination is recommended. D/ / 05/20/2018 09:07:15 Emigdio Schaefer MD / aracely Interpreting Provider: Emigdio Schaefer MD - VTE Reasons for not Prescribing Prophylaxis: Medical contraindication Documentation of Mechanical Device: Intermittent pneumatic compression device Consult Discharge Plan - Plan Referrals: Cherri Amado, [employer]S ADMINISTRATOR [Primary Care Provider] - (4) Leukocytosis Qualifiers: Leukocytosis type: unspecified Qualified Code(s): D72.829 - Elevated white blood cell count, unspecified
[2018-05-20] MEDS ORDERED: Clinimix E 5%-15% SOLUTION 2,000 ML with MVI, adult with vitamin K 10 ML IVC SCH (17:00)
[2018-05-20] MEDS: OXYCODONE Oral CONC 10 MG/0.5 ML ORAL.SYG SL PRN (21:01)
[2018-05-21] MEDS: Insulin LISPRO 300 UNITS/3 ML VIAL SQ SCH ×6 (01:16→20:59)
[2018-05-21 04:40] LABS: Basophils % 0.3 %; Eosinophils # 0.3 K/mcL (0.0-0.6); Eosinophils % 2.8 %; Hematocrit 28.1 % (37.5-50.1); Hemoglobin 8.9 g/dL (12.9-16.9); Immature Granulocytes % 0.4 % (0-4); Lymphocytes % 10.6 %; Mean Corpuscular HGB Conc 31.7 g/dL (31.6-35.5); Mean Corpuscular Hemoglobin 30.4 pg (28.0-33.3); Mean Corpuscular Volume 95.9 fL (83.0-100.0); Mean Platelet Volume 11.8 fL (9.4-12.4); Monocytes % 10.6 %; Neutrophils # 6.8 K/mcL (1.6-8.9); Platelet Count 210 K/mcL (140-400); Red Blood Count 2.93 M/mcL (4.19-5.50); Red Cell Distribution Width 18.4 % (11.5-14.5); Segmented Neutrophils % 75.3 %
[2018-05-21 04:58] LABS: BUN/Creatinine Ratio 35 (6-26); Blood Urea Nitrogen 26 mg/dL (8-23); Calcium 8.2 mg/dL (8.6-10.3); Carbon Dioxide 25 mEq/L (23-29); Chloride 109 mEq/L (98-107); Glucose 113 mg/dL (70-105); Magnesium 1.9 mg/dL (1.6-2.6); Osmolality,Calculated 294 (280-300); Phosphorous 2.4 mg/dL (2.7-4.5); Potassium 3.9 mEq/L (3.5-5.1); Sodium 139 mEq/L (136-145); eGFR For Non-African Americans > 60 (> 60)
[2018-05-21] MEDS: *HR* Metoprolol 5 MG/5 ML VIAL IVP SCH ×3 (05:42→17:23)
[2018-05-21] MEDS: *HR* Heparin 5,000 UNIT/ML VIAL SQ SCH ×2 (05:42→17:25)
[2018-05-21] MEDS: Pantoprazole 40 MG VIAL IVP SCH ×2 (05:43→17:23)
[2018-05-21] MEDS: Nicotine 7 MG PATCH.TD24 TD SCH (09:17)
--- NOTE | 2018-05-21 09:23 | General Surgery Progress Note ---
<Jarocho Swan P - Last Filed: 05/21/18 09:20> Date of Encounter: 05/21/18 Time of Encounter: 09:00 - Assessment and Plan (1) Ulcer at site of surgical anastomosis following bypass of stomach Current Visit: Yes Status: Acute POD #4. Pathology report remains pending. Plan: -dietitian consult for post-gastrectomy (patient has Venkatesh-en-Y anatomical structure) -continue supportive care and discomfort management -continue limited clear liquid diet (300 ml's per shift, no carbonation) -must be out of bed to chair for clear liquid trays -allowed to ambulate as tolerated -Continue patient on incentive spirometry 10 times every hour while awake -Continue PT and OT consult for mobilization and discharge planning -continue EP CDs while in bed -continue GI and DVT prophylaxis (2) Upper GI bleeding Current Visit: Yes Status: Acute See Assessment and Plan above. Subjective Patient reports: no new complaints, pain is less, tolerating liquids well, voiding w/o difficulty, flatus, bowel movement, afebrile Objective Vital Signs - Last 8 Hours Temp Pulse Resp BP Pulse Ox 05/21/18 07:17 97.9 F 81 18 158/58 96 05/21/18 03:50 99.3 F 84 15 159/66 94 Intake and Output 05/20/18 05/21/18 05/21/18 23:59 07:59 15:59 Intake Total 1665 / 1665 Output Total 500 / 500 Balance 1665 / 1665 -500 / -500 Intake: IV Fluids 1425 / 1425 Clinimix E 5%-15% SOLUTION 2, 1425 / 1425 000 ML @ 65 mls/hr IVC .Q24H [facility] with M.v.i. Adult 10 ml Rx# :[id number] Oral 240 / 240 Output: Urine 500 / 500 Other: # Voids 2 1 1 Weight 75.2 kg Blood Glucose* 147 170 Patient Weight 05/21/18 23:59 Weight 75.2 kg - General physical appearance well developed, well nourished, no distress, severe distress - Eyes PERRL, normal ocular movement - ENT normal pinna, normal nares, normal mucosa, no hearing loss, no congestion - Neck Neck exam: trachea midline - Respiratory clear to auscultation - Cardiovascular Cardiovascular exam: Present: RRR - Abdomen Abdomen: Present: bowel sounds present, soft, non tender - Integumentary no rash - Musculoskeletal normal gait, normal posture - Psychiatric oriented to time, oriented to person, oriented to place, speech is normal - Labs 05/21/18 04:05 05/21/18 04:05 Diabetes panel 05/21/18 Range/Units 04:05 Sodium 139 (136-145) mEq/L Potassium 3.9 (3.5-5.1) mEq/L Chloride 109 H (98-107) mEq/L Carbon Dioxide 25 (23-29) mEq/L BUN 26 H (8-23) mg/dL Creatinine 0.75 (0.70-1.30) mg/dL Glucose 113 H (70-105) mg/dL Calcium 8.2 L (8.6-10.3) mg/dL Calcium panel 05/21/18 Range/Units 04:05 Calcium 8.2 L (8.6-10.3) mg/dL Phosphorus 2.4 L (2.7-4.5) mg/dL Pituitary panel 05/21/18 Range/Units 04:05 Sodium 139 (136-145) mEq/L Potassium 3.9 (3.5-5.1) mEq/L Chloride 109 H (98-107) mEq/L Carbon Dioxide 25 (23-29) mEq/L BUN 26 H (8-23) mg/dL Creatinine 0.75 (0.70-1.30) mg/dL Glucose 113 H (70-105) mg/dL Calcium 8.2 L (8.6-10.3) mg/dL Adrenal panel 05/21/18 Range/Units 04:05 Sodium 139 (136-145) mEq/L Potassium 3.9 (3.5-5.1) mEq/L Chloride 109 H (98-107) mEq/L Carbon Dioxide 25 (23-29) mEq/L BUN 26 H (8-23) mg/dL Creatinine 0.75 (0.70-1.30) mg/dL Glucose 113 H (70-105) mg/dL Calcium 8.2 L (8.6-10.3) mg/dL - VTE Reasons for not Prescribing Prophylaxis: Medical contraindication Documentation of Mechanical Device: Intermittent pneumatic compression device Consult Discharge Plan - Plan Referrals: Cherri Amado CNP [Primary Care Provider] - <Hermilo Madden - Last Filed: 05/21/18 15:09> Date of Encounter: 05/21/18 Objective Vital Signs - Last 8 Hours Temp Pulse Resp BP Pulse Ox 05/21/18 11:16 97.5 F L 90 18 161/68 95 05/21/18 07:17 97.9 F 81 18 158/58 96 Intake and Output 05/20/18 05/21/18 05/21/18 23:59 07:59 15:59 Intake Total 1665 / 1665 Output Total 500 / 500 Balance 1665 / 1665 -500 / -500 Intake: IV Fluids 1425 / 1425 Clinimix E 5%-15% SOLUTION 2, 1425 / 1425 000 ML @ 65 mls/hr IVC .Q24H [facility] with M.v.i. Adult 10 ml Rx# :[id number] Oral 240 / 240 Output: Urine 500 / 500 Other: # Voids 2 1 1 Weight 75.2 kg Blood Glucose* 147 170 151 Patient Weight 05/21/18 23:59 Weight 75.2 kg - Labs 05/21/18 04:05 05/21/18 04:05 Diabetes panel 05/21/18 Range/Units 04:05 Sodium 139 (136-145) mEq/L Potassium 3.9 (3.5-5.1) mEq/L Chloride 109 H (98-107) mEq/L Carbon Dioxide 25 (23-29) mEq/L BUN 26 H (8-23) mg/dL Creatinine 0.75 (0.70-1.30) mg/dL Glucose 113 H (70-105) mg/dL Calcium 8.2 L (8.6-10.3) mg/dL Calcium panel 05/21/18 Range/Units 04:05 Calcium 8.2 L (8.6-10.3) mg/dL Phosphorus 2.4 L (2.7-4.5) mg/dL Pituitary panel 05/21/18 Range/Units 04:05 Sodium 139 (136-145) mEq/L Potassium 3.9 (3.5-5.1) mEq/L Chloride 109 H (98-107) mEq/L Carbon Dioxide 25 (23-29) mEq/L BUN 26 H (8-23) mg/dL Creatinine 0.75 (0.70-1.30) mg/dL Glucose 113 H (70-105) mg/dL Calcium 8.2 L (8.6-10.3) mg/dL Adrenal panel 05/21/18 Range/Units 04:05 Sodium 139 (136-145) mEq/L Potassium 3.9 (3.5-5.1) mEq/L Chloride 109 H (98-107) mEq/L Carbon Dioxide 25 (23-29) mEq/L BUN 26 H (8-23) mg/dL Creatinine 0.75 (0.70-1.30) mg/dL Glucose 113 H (70-105) mg/dL Calcium 8.2 L (8.6-10.3) mg/dL - Attending Attestation I have personally performed a face to face evaluation on this patient. I have reviewed and agree with the care plan. History and Exam by me shows: The patient is seen and evaluated on morning rounds with resident. He is tolerating volume restricted clear liquids. He has not had a bowel movement yet. We will continue TPN volume restricted clear liquids until he establishes clear bowel function. We will then advanced to postgastrectomy diet Hermilo Madden MD FACS
--- NOTE | 2018-05-21 10:44 | Internal Med Progress Note ---
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 Underwent subtotal gastrectomy and Venkatesh-en-Y reconstruction on 05/17 POD 4 today. On TPN and clear liquid diets Home meds resumed today 05/21 Initially, when his Hb was low, he was also noted to have troponin elevated along with abnormal Echo finding. Will need to ensure that outpatient ischemic workup is documented at the time of discharge. Seen and evaluated at the bedside and has no enw complains he does state thsat his daughters would like him to go to SNF for PT after discharge PTOT recommends SNF/ECF Surgery following - Exam Vitals: Temp Pulse Resp BP Pulse Ox 97.9 F 81 18 158/58 96 05/21/18 07:17 05/21/18 07:17 05/21/18 07:17 05/21/18 07:17 05/21/18 07:17 Exam: General: Alert and oriented, not in acute distress. HEENT: NG tube in situ Cardiovascular:Normal S1 & S2, No JVD. Pulse regular. Lungs: clear to auscultation, no wheezes/rales Abdomen:Soft, non-tender, incision site appears dry and clean. Graham in place Extremities:No deformity or swelling Neurological:Normal cognition and motor skills. 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 Current Visit: Yes Status: Chronic Assessment and Plan: on metformin at home, hold a1c: 5.3 blood glucose better controlld after the rate of TPN was adjusted keep low-dose sliding scale every 4 hr (3) Tobacco abuse Current Visit: Yes Status: Chronic Assessment and Plan: education nicotine patch (4) Upper GI bleeding Current Visit: Yes Status: Acute Assessment and Plan: due to the above dx, required 7 units of transfusion so far Underwent op 05/17, Hb stable around 9-10 heparin SQ started for DVT prophylaxis (5) Elevated troponin Current Visit: Yes Status: Acute Assessment and Plan: Most likely Type II NSTEMI in setting of acute blood loss anemia, though given his pmhx/tobacco use, cannot rule out Type I without LHC -0.1 at OSH, asx, no ischemic ekg changes on review of EKG -trop peak at 0.45 and down trended - Echo showed EF 60%, mild LVH, mild diastolic dysfunction not graded, hypokinetic basal inferior wall - ASA on hold due to GIB -resume home statin when able to take by mouth - bb in IV form while on TPN cardiology rec appreciated: No cardiac rehab consult is warranted. With wall motion abnormality on echo ideally would recommend LHC, however patient is not a candidate with acute GI bleed. Can consider outpatient ischemic evaluation. will have pt f/u with Dr Hassan outpt (6) Renal mass Current Visit: Yes Status: Acute Assessment and Plan: Renal US with: 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 MRI kidneys without with gadolinium recommended for additional characterization. 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 No mass lesion or enhancement abnormality. Unlikely to represent mets (7) Right middle lobe pulmonary nodule Current Visit: Yes Status: Chronic Assessment and Plan: Incidental finding on CT a/p shows right middle lobe 4 mm nodule in setting of this high risk patient this will need CT follow up in 12 months as an outpatient (8) Adenocarcinoma Current Visit: Yes Status: Acute Assessment and Plan: presented with UBGIT -05/[address] Joseph, with large anastomotic ulcer -> path: adenoCA CT did not show any sites of metastasis s/p Subtotal gastrectomy with Venkatesh-en-Y reconstruction, POD4 post-op care per surgery, incentive beto, early mobilization advancing diet to limited clear liquid per surgery continue TPN for now (9) Leukocytosis Current Visit: Yes Status: Resolved Assessment and Plan: Likely reactive in the setting of recent surgery, normalized today no PNA on CXR today - Time Spent with Patient Total time spent is greater than 50% in coordination of care (as documented) at patient's floor/unit and/or counseling patient: Plan of Care Discussed with: patient Internal Medicine: Result - Labs CBC & Chem 7: 05/21/18 04:05 05/21/18 04:05 Labs: Short CBC 05/21/18 Range/Units 04:05 WBC 9.0 (4.3-11.1) K/mcL Hgb 8.9 L (12.9-16.9) g/dL Hct 28.1 L (37.5-50.1) % Plt Count 210 (140-400) K/mcL Neutrophils # 6.8 (1.6-8.9) K/mcL BMP 05/21/18 04:05 Sodium 139 Potassium 3.9 Chloride 109 H Carbon Dioxide 25 BUN 26 H Creatinine 0.75 Glucose 113 H Calcium 8.2 L - ABG Interpretation ABG results: PT/INR, D-dimer PT 12.1 Seconds (9.4-12.1) 05/17/18 04:45 - VTE Reasons for not Prescribing Prophylaxis: Medical contraindication Documentation of Mechanical Device: Intermittent pneumatic compression device Consult Discharge Plan - Plan Referrals: Cherri Amado CNP [Primary Care Provider] - (9) Leukocytosis Qualifiers: Leukocytosis type: unspecified Qualified Code(s): D72.829 - Elevated white blood cell count, unspecified
[2018-05-21] MEDS ORDERED: Clinimix E 5%-15% SOLUTION 2,000 ML with MVI, adult with vitamin K 10 ML IVC SCH (17:00)
[2018-05-21] MEDS ORDERED: Aspirin 325 MG TABLET PO SCH (21:00)
[2018-05-21] MEDS: 0.9 % Sodium Chloride 1,000 ML IVC SCH (21:04)
[2018-05-21] MEDS: OXYCODONE Oral CONC 10 MG/0.5 ML ORAL.SYG SL PRN (21:23)
[2018-05-22] MEDS: Insulin LISPRO 300 UNITS/3 ML VIAL SQ SCH ×6 (00:35→20:07)
[2018-05-22] MEDS: *HR* Metoprolol 5 MG/5 ML VIAL IVP SCH ×4 (00:58→17:14)
[2018-05-22 04:20] LABS: Basophils % 0.2 %; Eosinophils # 0.2 K/mcL (0.0-0.6); Eosinophils % 2.7 %; Hematocrit 26.7 % (37.5-50.1); Hemoglobin 8.6 g/dL (12.9-16.9); Immature Granulocytes % 0.4 % (0-4); Lymphocytes # 0.8 K/mcL (0.6-4.6); Lymphocytes % 9.2 %; Mean Corpuscular HGB Conc 32.2 g/dL (31.6-35.5); Mean Corpuscular Hemoglobin 30.4 pg (28.0-33.3); Mean Corpuscular Volume 94.3 fL (83.0-100.0); Mean Platelet Volume 11.3 fL (9.4-12.4); Monocytes % 11.7 %; Neutrophils # 6.4 K/mcL (1.6-8.9); Platelet Count 234 K/mcL (140-400); Red Blood Count 2.83 M/mcL (4.19-5.50); Red Cell Distribution Width 18.1 % (11.5-14.5); Segmented Neutrophils % 75.8 %
[2018-05-22 04:39] LABS: Alanine Aminotransferase 53 Units/L (7-52); Albumin 2.5 g/dL (3.5-5.7); Albumin/Globulin Ratio 1.1 (1.1-2.2); Alkaline Phosphatase 70 Units/L (34-104); Aspartate Amino Transferase 30 Units/L (13-39); BUN/Creatinine Ratio 32 (6-26); Bilirubin,Total 0.4 mg/dL (0.3-1.0); Blood Urea Nitrogen 24 mg/dL (8-23); Calcium 8.2 mg/dL (8.6-10.3); Carbon Dioxide 26 mEq/L (23-29); Chloride 109 mEq/L (98-107); Chol/HDL Ratio 3.3 (0-4.9); Cholesterol 91 mg/dL (< 200); Globulin 2.2 g/dL (2.4-3.5); Glucose 106 mg/dL (70-105); HDL Cholesterol 28 mg/dL (40-59); LDL Cholesterol,Calculated 49 mg/dL (0-99); Magnesium 1.9 mg/dL (1.6-2.6); Osmolality,Calculated 292 (280-300); Phosphorous 2.8 mg/dL (2.7-4.5); Sodium 139 mEq/L (136-145); Total Protein 4.7 g/dL (6.4-8.9); Triglycerides 70 mg/dL (< 150); eGFR For Non-African Americans > 60 (> 60)
[2018-05-22] MEDS: Pantoprazole 40 MG VIAL IVP SCH ×2 (06:40→17:14)
[2018-05-22] MEDS: *HR* Heparin 5,000 UNIT/ML VIAL SQ SCH ×2 (06:43→18:39)
--- NOTE | 2018-05-22 08:51 | Internal Med Progress Note ---
Hospitalist Progress Note - Encounter Date of Encounter: 05/22/18 Time of Encounter: 09:47 - Subjective Interval History: tired from working with PT abd wall pain with coughing only no chest pain, dyspnea, headache, dizziness, n, v - Exam Vitals: Temp Pulse Resp BP Pulse Ox 97.9 F 79 19 145/63 96 05/22/18 07:47 05/22/18 07:47 05/22/18 07:47 05/22/18 07:47 05/22/18 07:47 Exam: General: Alert and oriented, not in acute distress. HEENT: moist oral mucosa Cardiovascular:Normal S1 & S2, No JVD. Pulse regular. Lungs: clear to auscultation, no wheezes/rales Abdomen:Soft, non-tender, incision site appears dry and clean, bandage not removed. No guarding, tenderness or rebound Extremities:No edema Neurological:Normal cognition and motor skills. 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 and Venkatesh-en-Y reconstruction on 05/17/18 # Adenocarcinoma s/p subtotal gastrectomy and Venkatesh-en-Y reconstruction on - On TPN and clear liquid diets, diet per GS, appreciated # Acute blood loss anemia due to UGIB due to anastomotic ulcer s/p 7 units PRBC transfusion this admission - Hb 101 --> 9.1 --> 8.6 - will transfuse if consistently < 8 considering suspected CAD # HTN: Cont lisinopril-HCTZ # DM2: Hold metformin. HbA1C 5.3%. Cont SSI low dose # NSTEMI, presumed CAD - Initially, troponin 0.08 --> 0.45 peak during anemia with basal inferior WMA on echo, could be demand ischemia, cannot r/o underlying CAD - Outpatient ischemic workup - ASA on hold due to GIB - resume home statin when able to take by mouth - IV BB while on TPN if able - Cardiology appreciated: No cardiac rehab consult is warranted. With wall motion abnormality on echo ideally would recommend LHC, however patient is not a candidate with acute GI bleed. Can consider outpatient ischemic evaluation. will have pt f/u with Dr Hassan outpt # Renal mass - Renal US: 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 MRI kidneys without with gadolinium recommended for additional characterization. 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 No mass lesion or enhancement abnormality. - Unlikely to represent mets # RML pulm nodule: 4 mm --> CT follow up in 12 months as an outpatient # VTE prophy: heparin SubQ - Time Spent with Patient Total time spent is greater than 50% in coordination of care (as documented) at patient's floor/unit and/or counseling patient: Internal Medicine: Result - Labs CBC & Chem 7: 05/22/18 04:00 05/22/18 04:00 Labs: Short CBC 05/22/18 Range/Units 04:00 WBC 8.4 (4.3-11.1) K/mcL Hgb 8.6 L (12.9-16.9) g/dL Hct 26.7 L (37.5-50.1) % Plt Count 234 (140-400) K/mcL Neutrophils # 6.4 (1.6-8.9) K/mcL BMP 05/22/18 04:00 Sodium 139 Potassium 4.0 Chloride 109 H Carbon Dioxide 26 BUN 24 H Creatinine 0.74 Glucose 106 H Calcium 8.2 L Liver Function 05/22/18 Range/Units 04:00 Total Bilirubin 0.4 (0.3-1.0) mg/dL AST 30 (13-39) Units/L ALT 53 H (7-52) Units/L Alkaline Phosphatase 70 (34-104) Units/L Albumin 2.5 L (3.5-5.7) g/dL - ABG Interpretation ABG results: PT/INR, D-dimer PT 12.1 Seconds (9.4-12.1) 05/17/18 04:45 - Impressions Impressions Chest X-Ray 05/20/18 07:44 IMPRESSION: 1. Large amount of lucency underneath the right hemidiaphragm. Patient is reported to be status post gastrectomy. 2. Bibasilar pulmonary opacities with small bilateral pleural effusions. Superimposed pneumonia or aspiration would not be excluded. Clinical correlation and/or follow-up examination is recommended. D/ / 05/20/2018 09:07:15 Emigdio Schaefer MD / aracely Interpreting Provider: Emigdio Schaefer MD - VTE Reasons for not Prescribing Prophylaxis: Medical contraindication Documentation of Mechanical Device: Intermittent pneumatic compression device Consult Discharge Plan - Plan Referrals: Cherri Amado CNP [Primary Care Provider] -
[2018-05-22] MEDS: Nicotine 7 MG PATCH.TD24 TD SCH (09:01)
[2018-05-22] MEDS: [UNRECOGNIZED DRUG - OTHER] PO SCH (09:12)
--- NOTE | 2018-05-22 10:21 | General Surgery Progress Note ---
<Jarocho Swan - Last Filed: 05/22/18 10:19> Date of Encounter: 05/22/18 Time of Encounter: 10:00 - Assessment and Plan (1) Ulcer at site of surgical anastomosis following bypass of stomach Current Visit: Yes Status: Acute POD #5. Pathology report recieved. Plan: -start full liquid diet -plan on ordering a consult to oncology on thursday -continue supportive care and discomfort management -must be out of bed to chair for clear liquid trays -allowed to ambulate as tolerated -Continue patient on incentive spirometry 10 times every hour while awake -Continue PT and OT consult for mobilization and discharge planning -continue EP CDs while in bed -continue GI and DVT prophylaxis (2) Upper GI bleeding Current Visit: Yes Status: Acute See Assessment and Plan above. Subjective Patient reports: pain is less, voiding w/o difficulty, flatus, no bowel movement , afebrile Objective Vital Signs - Last 8 Hours Temp Pulse Resp BP Pulse Ox 05/22/18 07:47 97.9 F 79 19 145/63 96 05/22/18 06:30 68 125/53 05/22/18 04:02 97.8 F 72 19 146/64 93 Intake and Output 05/21/18 05/22/18 05/22/18 23:59 07:59 15:59 Intake Total 1000 / 1000 250 / 250 120 / 120 Output Total 300 / 300 Balance 1000 / 1000 -50 / -50 120 / 120 Intake: IV Fluids 1000 / 1000 250 / 250 0.9 % Sodium Chloride 1,000 ML 1000 / 1000 @ 25 mls/hr IVC .Q24H [facility] Rx#: [id number] Intralipid 20% 250 ML @ 21 mls/ 250 / 250 hr IVPB DAILY@1700 [facility] Rx#: [id number] Oral 120 / 120 Output: Urine 300 / 300 Other: Meal Breakfast Blood Glucose* 135 155 - General physical appearance well developed, well nourished, no distress - Neck Neck exam: trachea midline - Respiratory normal expansion, normal respiratory effort, clear to percussion, clear to auscultation - Cardiovascular Cardiovascular exam: Present: RRR - Abdomen Abdomen: Present: bowel sounds present, soft, non tender - Integumentary no rash - Musculoskeletal normal gait, normal posture - Psychiatric oriented to time, oriented to person, oriented to place, speech is normal - Labs 05/22/18 04:00 05/22/18 04:00 Diabetes panel 05/22/18 Range/Units 04:00 Sodium 139 (136-145) mEq/L Potassium 4.0 (3.5-5.1) mEq/L Chloride 109 H (98-107) mEq/L Carbon Dioxide 26 (23-29) mEq/L BUN 24 H (8-23) mg/dL Creatinine 0.74 (0.70-1.30) mg/dL Glucose 106 H (70-105) mg/dL Calcium 8.2 L (8.6-10.3) mg/dL AST 30 (13-39) Units/L ALT 53 H (7-52) Units/L Alkaline Phosphatase 70 (34-104) Units/L Albumin 2.5 L (3.5-5.7) g/dL Triglycerides 70 (< 150) mg/dL HDL Cholesterol 28 L (40-59) mg/dL Calcium panel 05/22/18 Range/Units 04:00 Calcium 8.2 L (8.6-10.3) mg/dL Phosphorus 2.8 (2.7-4.5) mg/dL Albumin 2.5 L (3.5-5.7) g/dL Pituitary panel 05/22/18 Range/Units 04:00 Sodium 139 (136-145) mEq/L Potassium 4.0 (3.5-5.1) mEq/L Chloride 109 H (98-107) mEq/L Carbon Dioxide 26 (23-29) mEq/L BUN 24 H (8-23) mg/dL Creatinine 0.74 (0.70-1.30) mg/dL Glucose 106 H (70-105) mg/dL Calcium 8.2 L (8.6-10.3) mg/dL Adrenal panel 05/22/18 Range/Units 04:00 Sodium 139 (136-145) mEq/L Potassium 4.0 (3.5-5.1) mEq/L Chloride 109 H (98-107) mEq/L Carbon Dioxide 26 (23-29) mEq/L BUN 24 H (8-23) mg/dL Creatinine 0.74 (0.70-1.30) mg/dL Glucose 106 H (70-105) mg/dL Calcium 8.2 L (8.6-10.3) mg/dL Total Bilirubin 0.4 (0.3-1.0) mg/dL AST 30 (13-39) Units/L ALT 53 H (7-52) Units/L Alkaline Phosphatase 70 (34-104) Units/L Albumin 2.5 L (3.5-5.7) g/dL - VTE Reasons for not Prescribing Prophylaxis: Medical contraindication Documentation of Mechanical Device: Intermittent pneumatic compression device Consult Discharge Plan - Plan Referrals: Cherri Amado, CA[employer] WASHER [Primary Care Provider] - <Hermilo Madden - Last Filed: 05/23/18 17:19> Date of Encounter: 05/22/18 Objective Vital Signs - Last 8 Hours Temp Pulse Resp BP Pulse Ox 05/23/18 16:40 99.0 F 88 18 161/56 94 05/23/18 11:55 98.1 F 88 18 167/63 95 Intake and Output 05/23/18 05/23/18 05/23/18 07:59 15:59 23:59 Intake Total 1640 / 1640 Output Total 1050 / 1050 400 / 400 Balance -1050 / -1050 1240 / 1240 Intake: IV Fluids 1000 / 1000 0.9 % Sodium Chloride 1,000 ML 1000 / 1000 @ 25 mls/hr IVC .Q24H [facility] Rx#: [id number] Oral 640 / 640 Output: Urine 1050 / 1050 400 / 400 Other: Meal Lunch Percent of Meal Consumed 0% Stool Size Small Stool Consistency loose liquid Stool Color Black # Voids 1 # Bowel Movements 1 Blood Glucose* 140 151 131 - Labs 05/23/18 05:30 05/23/18 05:30 Diabetes panel 05/23/18 Range/Units 05:30 Sodium 138 (136-145) mEq/L Potassium 4.0 (3.5-5.1) mEq/L Chloride 108 H (98-107) mEq/L Carbon Dioxide 27 (23-29) mEq/L BUN 24 H (8-23) mg/dL Creatinine 0.75 (0.70-1.30) mg/dL Glucose 154 H (70-105) mg/dL Calcium 8.3 L (8.6-10.3) mg/dL Calcium panel 05/23/18 Range/Units 05:30 Calcium 8.3 L (8.6-10.3) mg/dL Phosphorus 3.0 (2.7-4.5) mg/dL Pituitary panel 05/23/18 Range/Units 05:30 Sodium 138 (136-145) mEq/L Potassium 4.0 (3.5-5.1) mEq/L Chloride 108 H (98-107) mEq/L Carbon Dioxide 27 (23-29) mEq/L BUN 24 H (8-23) mg/dL Creatinine 0.75 (0.70-1.30) mg/dL Glucose 154 H (70-105) mg/dL Calcium 8.3 L (8.6-10.3) mg/dL Adrenal panel 05/23/18 Range/Units 05:30 Sodium 138 (136-145) mEq/L Potassium 4.0 (3.5-5.1) mEq/L Chloride 108 H (98-107) mEq/L Carbon Dioxide 27 (23-29) mEq/L BUN 24 H (8-23) mg/dL Creatinine 0.75 (0.70-1.30) mg/dL Glucose 154 H (70-105) mg/dL Calcium 8.3 L (8.6-10.3) mg/dL - Attending Attestation I examined this patient and my medical decision-making was reviewed with the Resident Physician. I agree with the documented findings, disposition and treatment plan as described except to the extent set forth below. The patient is seen and evaluated with rest and on morning rounds. He is doing quite well. He has good bowel sounds. He is passing flatus. We will advance him to full liquids. Pathology returned yesterday T4 [facility] oncology to evaluate on Thursday. Hermilo Madden MD FACS
[2018-05-22] MEDS ORDERED: Clinimix E 5%-15% SOLUTION 2,000 ML with MVI, adult with vitamin K 10 ML IVC SCH (17:00)
[2018-05-23] MEDS: Insulin LISPRO 300 UNITS/3 ML VIAL SQ SCH ×6 (00:45→20:26)
[2018-05-23] MEDS: *HR* Heparin 5,000 UNIT/ML VIAL SQ SCH ×2 (05:20→17:23)
[2018-05-23] MEDS: *HR* Metoprolol 5 MG/5 ML VIAL IVP SCH ×5 (05:20→21:14)
[2018-05-23] MEDS: Pantoprazole 40 MG VIAL IVP SCH ×2 (05:20→17:26)
[2018-05-23 05:53] LABS: Hematocrit 26.7 % (37.5-50.1); Hemoglobin 8.5 g/dL (12.9-16.9); Mean Corpuscular HGB Conc 31.8 g/dL (31.6-35.5); Mean Corpuscular Hemoglobin 30.5 pg (28.0-33.3); Mean Corpuscular Volume 95.7 fL (83.0-100.0); Mean Platelet Volume 11.1 fL (9.4-12.4); Platelet Count 280 K/mcL (140-400); Red Blood Count 2.79 M/mcL (4.19-5.50); Red Cell Distribution Width 17.3 % (11.5-14.5)
[2018-05-23 06:14] LABS: BUN/Creatinine Ratio 32 (6-26); Blood Urea Nitrogen 24 mg/dL (8-23); Calcium 8.3 mg/dL (8.6-10.3); Carbon Dioxide 27 mEq/L (23-29); Chloride 108 mEq/L (98-107); Glucose 154 mg/dL (70-105); Magnesium 1.9 mg/dL (1.6-2.6); Osmolality,Calculated 293 (280-300); Sodium 138 mEq/L (136-145); eGFR For Non-African Americans > 60 (> 60)
[2018-05-23] MEDS: Nicotine 7 MG PATCH.TD24 TD SCH (08:11)
[2018-05-23] MEDS: [UNRECOGNIZED DRUG - OTHER] PO SCH (09:22)
--- NOTE | 2018-05-23 09:26 | General Surgery Progress Note ---
<Jarocho Swan P - Last Filed: 05/23/18 08:54> Date of Encounter: 05/23/18 Time of Encounter: 08:50 - Assessment and Plan (1) Ulcer at site of surgical anastomosis following bypass of stomach Current Visit: Yes Status: Acute POD #6. Patient started having bowel movements yesterday. Plan: -wean TPN by half amount -continue full liquid diet -plan on ordering a consult to oncology on thursday -continue supportive care and discomfort management -must be out of bed to chair for clear liquid trays -allowed to ambulate as tolerated -Continue patient on incentive spirometry 10 times every hour while awake -Continue PT and OT consult for mobilization and discharge planning -Social work for discharge planning -continue EP CDs while in bed -continue GI and DVT prophylaxis Disposition: Possible discharge Thursday after seen by oncology (2) Upper GI bleeding Current Visit: Yes Status: Acute See Assessment and Plan above. Subjective Patient reports: no new complaints, tolerating liquids well, voiding w/o difficulty, flatus, bowel movement, afebrile Narrative: Patient reports 1 loose bowel movement yesterday confirmed by nurse Objective Vital Signs - Last 8 Hours Temp Pulse Resp BP Pulse Ox 05/23/18 07:29 99.6 F 79 17 136/54 92 05/23/18 04:15 99.0 F 94 15 135/56 92 05/23/18 04:13 98.6 F 106 17 150/57 93 Intake and Output 05/22/18 05/23/18 05/23/18 23:59 07:59 15:59 Intake Total 1642 / 1642 Output Total 780 / 780 1050 / 1050 Balance 862 / 862 -1050 / -1050 Intake: IV Fluids 1642 / 1642 Clinimix E 5%-15% SOLUTION 2, 1642 / 1642 000 ML @ 75 mls/hr IVC .Q24H [facility] with [facility] Adult 10 ml Rx# :[id number] Output: Urine 780 / 780 1050 / 1050 Other: Stool Size Small Stool Consistency loose liquid Stool Color Black # Voids 1 1 # Bowel Movements 1 Blood Glucose* 170 140 - General physical appearance no distress - Neck Neck exam: trachea midline - Respiratory clear to auscultation - Cardiovascular Cardiovascular exam: Present: RRR - Abdomen Abdomen: Present: bowel sounds present, soft, non tender - Integumentary no rash - Musculoskeletal normal gait, normal posture - Psychiatric oriented to time, oriented to person, oriented to place, speech is normal, memory intact - Labs 05/23/18 05:30 05/23/18 05:30 Diabetes panel 05/23/18 Range/Units 05:30 Sodium 138 (136-145) mEq/L Potassium 4.0 (3.5-5.1) mEq/L Chloride 108 H (98-107) mEq/L Carbon Dioxide 27 (23-29) mEq/L BUN 24 H (8-23) mg/dL Creatinine 0.75 (0.70-1.30) mg/dL Glucose 154 H (70-105) mg/dL Calcium 8.3 L (8.6-10.3) mg/dL Calcium panel 05/23/18 Range/Units 05:30 Calcium 8.3 L (8.6-10.3) mg/dL Phosphorus 3.0 (2.7-4.5) mg/dL Pituitary panel 05/23/18 Range/Units 05:30 Sodium 138 (136-145) mEq/L Potassium 4.0 (3.5-5.1) mEq/L Chloride 108 H (98-107) mEq/L Carbon Dioxide 27 (23-29) mEq/L BUN 24 H (8-23) mg/dL Creatinine 0.75 (0.70-1.30) mg/dL Glucose 154 H (70-105) mg/dL Calcium 8.3 L (8.6-10.3) mg/dL Adrenal panel 05/23/18 Range/Units 05:30 Sodium 138 (136-145) mEq/L Potassium 4.0 (3.5-5.1) mEq/L Chloride 108 H (98-107) mEq/L Carbon Dioxide 27 (23-29) mEq/L BUN 24 H (8-23) mg/dL Creatinine 0.75 (0.70-1.30) mg/dL Glucose 154 H (70-105) mg/dL Calcium 8.3 L (8.6-10.3) mg/dL - VTE Reasons for not Prescribing Prophylaxis: Medical contraindication Documentation of Mechanical Device: Intermittent pneumatic compression device Consult Discharge Plan - Plan Referrals: Cherri Amado, RUSTAM [Primary Care Provider] - <Hermilo Madden - Last Filed: 05/23/18 17:51> Date of Encounter: 05/23/18 Objective Vital Signs - Last 8 Hours Temp Pulse Resp BP Pulse Ox 05/23/18 16:40 99.0 F 88 18 161/56 94 05/23/18 11:55 98.1 F 88 18 167/63 95 Intake and Output 05/23/18 05/23/18 05/23/18 07:59 15:59 23:59 Intake Total 250 / 250 1640 / 1640 Output Total 1050 / 1050 400 / 400 Balance -800 / -800 1240 / 1240 Intake: IV Fluids 250 / 250 1000 / 1000 0.9 % Sodium Chloride 1,000 ML 1000 / 1000 @ 25 mls/hr IVC .Q24H [facility] Rx#: [id number] Intralipid 20% 250 ML @ 21 mls/ 250 / 250 hr IVPB DAILY@1700 [facility] Rx#: [id number] Oral 640 / 640 Output: Urine 1050 / 1050 400 / 400 Other: Meal Lunch Percent of Meal Consumed 0% Stool Size Small Stool Consistency loose liquid Stool Color Black # Voids 1 # Bowel Movements 1 Blood Glucose* 140 151 131 - Labs 05/23/18 05:30 05/23/18 05:30 Diabetes panel 05/23/18 Range/Units 05:30 Sodium 138 (136-145) mEq/L Potassium 4.0 (3.5-5.1) mEq/L Chloride 108 H (98-107) mEq/L Carbon Dioxide 27 (23-29) mEq/L BUN 24 H (8-23) mg/dL Creatinine 0.75 (0.70-1.30) mg/dL Glucose 154 H (70-105) mg/dL Calcium 8.3 L (8.6-10.3) mg/dL Calcium panel 05/23/18 Range/Units 05:30 Calcium 8.3 L (8.6-10.3) mg/dL Phosphorus 3.0 (2.7-4.5) mg/dL Pituitary panel 05/23/18 Range/Units 05:30 Sodium 138 (136-145) mEq/L Potassium 4.0 (3.5-5.1) mEq/L Chloride 108 H (98-107) mEq/L Carbon Dioxide 27 (23-29) mEq/L BUN 24 H (8-23) mg/dL Creatinine 0.75 (0.70-1.30) mg/dL Glucose 154 H (70-105) mg/dL Calcium 8.3 L (8.6-10.3) mg/dL Adrenal panel 05/23/18 Range/Units 05:30 Sodium 138 (136-145) mEq/L Potassium 4.0 (3.5-5.1) mEq/L Chloride 108 H (98-107) mEq/L Carbon Dioxide 27 (23-29) mEq/L BUN 24 H (8-23) mg/dL Creatinine 0.75 (0.70-1.30) mg/dL Glucose 154 H (70-105) mg/dL Calcium 8.3 L (8.6-10.3) mg/dL - Attending Attestation I examined this patient and my medical decision-making was reviewed with the Resident Physician. I agree with the documented findings, disposition and treatment plan as described except to the extent set forth below. The patient is seen and evaluated with resident on morning rounds. He is had 2 bowel movements. He is tolerating full liquids. We will drop his TPN by 50% in anticipation of discontinuing TPN tomorrow. We will start him on a postgastrectomy diet Hermilo Madden MD FACS
[2018-05-23] MEDS: OXYCODONE Oral CONC 10 MG/0.5 ML ORAL.SYG SL PRN ×2 (12:22→21:23)
[2018-05-23] MEDS: 0.9 % Sodium Chloride 1,000 ML IVC SCH (12:36)
--- NOTE | 2018-05-23 14:33 | Internal Med Progress Note ---
Hospitalist Progress Note - Encounter Date of Encounter: 05/23/18 Time of Encounter: 15:00 - Subjective Interval History: abd wall pain with coughing only no chest pain, dyspnea, headache, dizziness, n, v - Exam Vitals: Temp Pulse Resp BP Pulse Ox 98.1 F 88 18 167/63 95 05/23/18 11:55 05/23/18 11:55 05/23/18 11:55 05/23/18 11:55 05/23/18 11:55 Exam: General: Alert and oriented, not in acute distress. HEENT: moist oral mucosa Cardiovascular:Normal S1 & S2, No JVD. Pulse regular. Lungs: clear to auscultation, no wheezes/rales Abdomen:Soft, non-tender, incision site appears dry and clean, bandage not removed. No guarding, tenderness or rebound Extremities:No edema Neurological:Normal cognition and motor skills. 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 and Venkatesh-en-Y reconstruction on 05/17/18 # Adenocarcinoma s/p subtotal gastrectomy and Venkatesh-en-Y reconstruction on - On TPN + FLD, diet per - appreciated: oncology consult in AM - Aggressive IS, PT/OT, OOB while eating - start antitussives to avoid abd wall pain with cough; tessalon perles adrián + cepacol prn # Acute blood loss anemia due to UGIB due to anastomotic ulcer s/p 7 units PRBC transfusion this admission - Hb 101 --> 9.1 --> 8.5, stable - will transfuse if consistently < 8 considering suspected CAD # HTN, uncontrolled - Increase lisinopril-HCTZ to 40-25 hs - Cont IV metoprolol # DM2: Hold metformin. HbA1C 5.3%. Cont SSI low dose # NSTEMI, presumed CAD - Initially, troponin 0.08 --> 0.45 peak during anemia with basal inferior WMA on echo, could be demand ischemia, cannot r/o underlying CAD - Outpatient ischemic workup - ASA on hold due to GIB - cont BB - resume home statin once diet advanced further - Cardiology appreciated: No cardiac rehab consult is warranted. With wall motion abnormality on echo ideally would recommend LHC, however patient is not a candidate with acute GI bleed. Can consider outpatient ischemic evaluation. will have pt f/u with Dr Hassan outpt # Renal mass - Renal US: 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 MRI kidneys without with gadolinium recommended for additional characterization. 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 No mass lesion or enhancement abnormality. - Unlikely to represent mets # RML pulm nodule: 4 mm --> CT follow up in 12 months as an outpatient # VTE prophy: heparin SubQ - Time Spent with Patient Total time spent is greater than 50% in coordination of care (as documented) at patient's floor/unit and/or counseling patient: Internal Medicine: Result - Labs CBC & Chem 7: 05/23/18 05:30 05/23/18 05:30 Labs: Short CBC 05/23/18 Range/Units 05:30 WBC 9.2 (4.3-11.1) K/mcL Hgb 8.5 L (12.9-16.9) g/dL Hct 26.7 L (37.5-50.1) % Plt Count 280 (140-400) K/mcL BMP 05/23/18 05:30 Sodium 138 Potassium 4.0 Chloride 108 H Carbon Dioxide 27 BUN 24 H Creatinine 0.75 Glucose 154 H Calcium 8.3 L - ABG Interpretation ABG results: PT/INR, D-dimer PT 12.1 Seconds (9.4-12.1) 05/17/18 04:45 - VTE Reasons for not Prescribing Prophylaxis: Medical contraindication Documentation of Mechanical Device: Intermittent pneumatic compression device Consult Discharge Plan - Plan Referrals: Cherri mAado [employer] [Primary Care Provider] -
[2018-05-23] MEDS: Benzonatate 100 MG CAPSULE PO SCH ×2 (15:44→21:14)
[2018-05-23] MEDS ORDERED: Clinimix E 5%-15% SOLUTION 2,000 ML with MVI, adult with vitamin K 10 ML IVC SCH (17:00)
[2018-05-23] MEDS ORDERED: *HR* Metoprolol 5 MG/5 ML VIAL IVP SCH (18:30)
[2018-05-23] MEDS: Lisinopril-HCTZ 20-12.5mg TABLET PO SCH (21:14)
[2018-05-24] MEDS: *HR* Metoprolol 5 MG/5 ML VIAL IVP SCH ×4 (00:36→16:42)
[2018-05-24] MEDS: Insulin LISPRO 300 UNITS/3 ML VIAL SQ SCH ×6 (00:36→21:20)
[2018-05-24] MEDS: *HR* Heparin 5,000 UNIT/ML VIAL SQ SCH ×2 (06:16→16:44)
[2018-05-24] MEDS: Pantoprazole 40 MG VIAL IVP SCH (06:20)
[2018-05-24 06:39] LABS: Hematocrit 28.2 % (37.5-50.1); Hemoglobin 8.8 g/dL (12.9-16.9); Mean Corpuscular HGB Conc 31.2 g/dL (31.6-35.5); Mean Corpuscular Hemoglobin 29.8 pg (28.0-33.3); Mean Corpuscular Volume 95.6 fL (83.0-100.0); Mean Platelet Volume 11.2 fL (9.4-12.4); Platelet Count 305 K/mcL (140-400); Red Blood Count 2.95 M/mcL (4.19-5.50); Red Cell Distribution Width 17.2 % (11.5-14.5)
[2018-05-24 07:05] LABS: BUN/Creatinine Ratio 30 (6-26); Blood Urea Nitrogen 23 mg/dL (8-23); Calcium 8.3 mg/dL (8.6-10.3); Carbon Dioxide 26 mEq/L (23-29); Chloride 108 mEq/L (98-107); Glucose 129 mg/dL (70-105); Magnesium 1.9 mg/dL (1.6-2.6); Osmolality,Calculated 291 (280-300); Phosphorous 3.4 mg/dL (2.7-4.5); Potassium 4.2 mEq/L (3.5-5.1); Sodium 138 mEq/L (136-145); eGFR For Non-African Americans > 60 (> 60)
--- NOTE | 2018-05-24 07:52 | General Surgery Progress Note ---
<Jarocho Swan P - Last Filed: 05/24/18 07:42> Date of Encounter: 05/24/18 Time of Encounter: 07:30 - Assessment and Plan (1) Ulcer at site of surgical anastomosis following bypass of stomach Current Visit: Yes Status: Acute POD #7. Patient is having bowel movements. Vital signs normal. Plan: -completely wean TPN off today -continue full liquid diet -Recommend consulting dietitian on post-gastrectomy diet (patient has Venkatesh-en-Y anatomy) -plan on ordering a consult to oncology on thursday -continue supportive care and discomfort management -allowed to ambulate as tolerated -Continue patient on incentive spirometry 10 times every hour while awake -Continue PT and OT consult for mobilization and discharge planning -Social work for discharge planning -continue EP CDs while in bed -continue GI and DVT prophylaxis Disposition: Possible discharge Thursday after seen by oncology (2) Upper GI bleeding Current Visit: Yes Status: Acute See Assessment and Plan above. Subjective Patient reports: no new complaints, voiding w/o difficulty, flatus, bowel movement, afebrile Objective Vital Signs - Last 8 Hours Temp Pulse Resp BP Pulse Ox 05/24/18 06:55 98.8 F 71 16 163/58 98 05/24/18 04:00 98.4 F 73 17 133/63 94 05/24/18 00:00 98.1 F 77 16 139/64 93 Intake and Output 05/23/18 05/23/18 05/24/18 15:59 23:59 07:59 Intake Total 1640 / 1640 0 / 0 Output Total 400 / 400 250 / 250 525 / 525 Balance 1240 / 1240 -250 / -250 -525 / -525 Intake: IV Fluids 1000 / 1000 0.9 % Sodium Chloride 1,000 ML 1000 / 1000 @ 25 mls/hr IVC .Q24H [facility] Rx#: [id number] Oral 640 / 640 0 / 0 Output: Urine 400 / 400 250 / 250 525 / 525 Other: Meal Lunch Percent of Meal Consumed 0% Weight 75.1 kg Blood Glucose* 151 140 128 - Neck Neck exam: trachea midline - Respiratory clear to auscultation - Cardiovascular Cardiovascular exam: Present: RRR - Abdomen Abdomen: Present: bowel sounds present, soft, non tender - Integumentary no rash - Musculoskeletal normal gait, normal posture - Psychiatric oriented to time, oriented to person, oriented to place, speech is normal - Labs 05/24/18 06:15 05/24/18 06:15 Diabetes panel 05/24/18 Range/Units 06:15 Sodium 138 (136-145) mEq/L Potassium 4.2 (3.5-5.1) mEq/L Chloride 108 H (98-107) mEq/L Carbon Dioxide 26 (23-29) mEq/L BUN 23 (8-23) mg/dL Creatinine 0.76 (0.70-1.30) mg/dL Glucose 129 H (70-105) mg/dL Calcium 8.3 L (8.6-10.3) mg/dL Calcium panel 05/24/18 Range/Units 06:15 Calcium 8.3 L (8.6-10.3) mg/dL Phosphorus 3.4 (2.7-4.5) mg/dL Pituitary panel 05/24/18 Range/Units 06:15 Sodium 138 (136-145) mEq/L Potassium 4.2 (3.5-5.1) mEq/L Chloride 108 H (98-107) mEq/L Carbon Dioxide 26 (23-29) mEq/L BUN 23 (8-23) mg/dL Creatinine 0.76 (0.70-1.30) mg/dL Glucose 129 H (70-105) mg/dL Calcium 8.3 L (8.6-10.3) mg/dL Adrenal panel 05/24/18 Range/Units 06:15 Sodium 138 (136-145) mEq/L Potassium 4.2 (3.5-5.1) mEq/L Chloride 108 H (98-107) mEq/L Carbon Dioxide 26 (23-29) mEq/L BUN 23 (8-23) mg/dL Creatinine 0.76 (0.70-1.30) mg/dL Glucose 129 H (70-105) mg/dL Calcium 8.3 L (8.6-10.3) mg/dL - VTE Reasons for not Prescribing Prophylaxis: Medical contraindication Documentation of Mechanical Device: Intermittent pneumatic compression device Consult Discharge Plan - Plan Referrals: Cherri Amado, HAND ROUNDER [Primary Care Provider] - <Hermilo Madden - Last Filed: 05/24/18 14:22> Date of Encounter: 05/24/18 Objective Vital Signs - Last 8 Hours Temp Pulse Resp BP Pulse Ox 05/24/18 10:55 97.9 F 85 16 154/65 95 05/24/18 08:57 98 05/24/18 06:55 98.8 F 71 16 163/58 98 Intake and Output 05/23/18 05/24/18 05/24/18 23:59 07:59 15:59 Intake Total 0 / 0 360 / 360 Output Total 250 / 250 525 / 525 100 / 100 Balance -250 / -250 -525 / -525 260 / 260 Intake: Oral 0 / 0 360 / 360 Output: Urine 250 / 250 525 / 525 100 / 100 Other: Meal Breakfast Percent of Meal Consumed 50% Weight 75.1 kg Blood Glucose* 140 128 164 - Labs 05/24/18 06:15 05/24/18 06:15 Diabetes panel 05/24/18 Range/Units 06:15 Sodium 138 (136-145) mEq/L Potassium 4.2 (3.5-5.1) mEq/L Chloride 108 H (98-107) mEq/L Carbon Dioxide 26 (23-29) mEq/L BUN 23 (8-23) mg/dL Creatinine 0.76 (0.70-1.30) mg/dL Glucose 129 H (70-105) mg/dL Calcium 8.3 L (8.6-10.3) mg/dL Calcium panel 05/24/18 Range/Units 06:15 Calcium 8.3 L (8.6-10.3) mg/dL Phosphorus 3.4 (2.7-4.5) mg/dL Pituitary panel 05/24/18 Range/Units 06:15 Sodium 138 (136-145) mEq/L Potassium 4.2 (3.5-5.1) mEq/L Chloride 108 H (98-107) mEq/L Carbon Dioxide 26 (23-29) mEq/L BUN 23 (8-23) mg/dL Creatinine 0.76 (0.70-1.30) mg/dL Glucose 129 H (70-105) mg/dL Calcium 8.3 L (8.6-10.3) mg/dL Adrenal panel 05/24/18 Range/Units 06:15 Sodium 138 (136-145) mEq/L Potassium 4.2 (3.5-5.1) mEq/L Chloride 108 H (98-107) mEq/L Carbon Dioxide 26 (23-29) mEq/L BUN 23 (8-23) mg/dL Creatinine 0.76 (0.70-1.30) mg/dL Glucose 129 H (70-105) mg/dL Calcium 8.3 L (8.6-10.3) mg/dL - Attending Attestation I examined this patient and my medical decision-making was reviewed with the Resident Physician. I agree with the documented findings, disposition and treatment plan as described except to the extent set forth below. The patient is seen and evaluated with the medical student, resident, clinical nurse practitioners this morning on rounds. He is doing quite well after subtotal gastrectomy and resection of previous small bowel anastomosis with Venkatesh -en-Y reconstruction. He has a large T4 adenocarcinoma. Because of the previous gastric resection, we had limited vascular supply to the remaining stomach and I could not do a extensive lymph node resection. He will be seen by oncology today. He is receiving counseling on postgastrectomy diet. Wean TPN to off. Anticipate discharge tomorrow. Hermilo Madden MD FACS
[2018-05-24] MEDS: 0.9 % Sodium Chloride 1,000 ML IVC SCH (08:32)
[2018-05-24] MEDS: Benzonatate 100 MG CAPSULE PO SCH ×3 (08:43→21:20)
[2018-05-24] MEDS: Nicotine 7 MG PATCH.TD24 TD SCH (08:43)
[2018-05-24] MEDS: [UNRECOGNIZED DRUG - OTHER] PO SCH (08:44)
--- NOTE | 2018-05-24 12:28 | Oncology Inp Consult Note ---
<Mitesh Weinstein - Last Filed: 05/24/18 17:55> Date of Encounter: 05/24/18 Time of Encounter: 10:00 Assessment and Plan (1) Gastric adenocarcinoma Status: Acute Assessment and plan: POD #7: post-gastrectomy. Initial biopsy from EGD on 05/11/18 resulted as adenocarcinoma, confirmed by excision and biopsy of tumor on 05/17/18 that also resulted as adenocarcinoma. AJCC pathologic stage: pT4, pNx, pMn/a. As no lymph nodes tested, we recommend outpatient follow up in 3 weeks to follow up on labs and schedule a PET SCAN at that time. Patient and daughter aware of plan and in agreement. Patient is to be discharged to [facility] tomorrow for inpatient rehab. ECOG performance status of 4 currently, expecting improvement with rehabilitation. - Data of Consult Patient: new to practice Consult date: 05/24/18 Requesting Physician: Cameron Montez MD Primary Care Provider: DONI Reed - Consult Narrative Reason for consult: Gastric adenocarcinoma History of present illness: Mr. Apple is a 82 year old male with history of diabetes, hyperlipidemia, hypertension, carotid disease status post CEA in 2016, and status post gastrectomy approx 5 decades ago for bleeding ulcer. Patient initially presented to [facility] ED for upper G.I. bleed on 05/11/2018 and was transferred to [facility] for further evaluation and management. Dr. Joseph performed EGD on 05/11 with findings significant for large ulcer at the gastroenteric anastomosis, suspicious for cancer. Biopsies were taken and resulted as gastric adenocarcinoma. Surgery was consulted for gastrectomy and reconstruction (subtotal gastrectomy with [id number]-[id number] reconstruction/ reoperation and takedown of Billroth II from previously gastrectomy). Patient was started on supplemental TPN (dc'd today) and after surgery restarted on a liquid diet. Patient was found to have a NSTEMI in the setting of a G.I. bleed with acute blood loss anemia. Echocardiogram normal with EF of 60%. During patient's course of stay he is received 7 units of packed red blood cells. Patient states plan is to go to [facility] tomorrow. Oncology consulted for outpatient follow up and possible treatment. Past Med Surg Social Fam HX - Past Medical History Medical history: diabetes, hyperlipidemia, hypertension, kidney stones, other Additional medical history: stomach ulcer Psychiatric history: no psych history - Past Surgical History Additional surgical history: Gastrectomy (40-50 years ago). Carotidendarterectomy 2016 - Social History Smoking Status: Current every day smoker Packs per day: 0.5 Smokeless Tobacco Status: No Alcohol use: occasionally Drug use: none - Family History Mother History Unknown: Yes Sister Adopted: No Living Status: Cause of : metatastic cancer Hx Family Cancer: Yes (breast cancer) Medications and Allergies Aspirin 325 mg PO HS 10/18/15 [History] Lisinopril/Hydrochlorothiazide [Zestoretic 20-25 mg Tablet] 1 each PO HS [History] Lovastatin [Mevacor] 20 mg PO HS 10/18/15 [History] metFORMIN [Glucophage] 500 mg PO BIDWM 10/18/15 [History] Ferrous Sulfate [Iron] 325 mg PO DAILY 05/11/18 [History] Mv-Min/FA/Vit K/Lycop/Lut/Zeax [Ocuvite Eye + Multi Tablet] 1 tab PO DAILY 05/11 [History] 3 Allergy/AdvReac Type Severity Reaction Status Date / Time No Known Allergies Allergy Verified 05/11/18 12:28 All systems: reviewed and no additional remarkable complaints except as stated Constitutional: Absent: chills, excessive sweating, fever(s), lethargy Eyes: Absent: change in vision Nose, mouth and throat: Absent: change in voice, sore throat Cardiovascular: Absent: chest pain with activity, dyspnea on exertion, pedal edema Respiratory: Absent: dyspnea, chest congestion Gastrointestinal: Present: as per HPI, coffee ground emesis, hematemesis, nausea , vomiting. Absent: abdominal pain, change in bowel habits, diarrhea, dysphagia , hematochezia, melena Musculoskeletal: Absent: muscle cramps Integumentary: Absent: rash Neurological: Present: abnormal speech Hematologic/Lymphatic: Absent: easy bleeding, easy bruising Oncology - Exam - Constitutional Vitals: Temp Pulse Resp BP Pulse Ox 97.9 F 85 16 154/65 95 05/24/18 10:55 05/24/18 10:55 05/24/18 10:55 05/24/18 10:55 05/24/18 10:55 General appearance: average body habitus, cooperative, no acute distress - Head Head exam: Present: atraumatic, normal inspection, normocephalic - Eye Eye exam: Present: normal appearance, conjuntiva pink, sclera anicteric - ENT ENT exam: Present: mucous membranes moist, normal exam, normal oropharynx - Neck Neck exam: Present: normal inspection - Respiratory Respiratory exam: Present: CTAB. Absent: accessory muscle use, rales, rhonchi, wheezes - Cardiovascular Cardiovascular exam: Present: RRR, +S1, +S2. Absent: diastolic murmur, systolic murmur - GI/Abdominal GI/Abdominal exam: Present: normal bowel sounds, soft. Absent: tenderness Additional comments: Bandage not removed; clean/dry/intact - Extremities Exam Extremities exam: Present: normal inspection. Absent: calf tenderness, pedal edema - Neurological Exam Neurological exam: Present: alert, no focal deficits. Absent: speech deficit - Psychiatric Psychiatric exam: Present: normal affect, normal mood - Skin Skin exam: Present: dry, normal color, warm Oncology - Results Labs: 3 05/24/18 05/24/18 05/24/18 06:15 06:15 00:02 WBC 8.4 RBC 2.95 L Hgb 8.8 L Hct 28.2 L MCV 95.6 MCH 29.8 MCHC 31.2 L RDW 17.2 H Plt Count 305 MPV 11.2 Immature Gran % Seg Neutrophils % Lymphocytes % Monocytes % Eosinophils % Basophils % Neutrophils # Lymphocytes # Monocytes # Eosinophils # Basophils # Sodium 138 Potassium 4.2 Chloride 108 H Carbon Dioxide 26 BUN 23 Creatinine 0.76 Est GFR ( Amer) > 60 Est GFR (Non-Af Amer) > 60 BUN/Creatinine Ratio 30 H Glucose 129 H POC Glucose 158 H Calculated Osmolality 291 Calcium 8.3 L Phosphorus 3.4 Magnesium 1.9 Total Bilirubin AST ALT Alkaline Phosphatase Serum Total Protein Albumin Globulin Albumin/Globulin Ratio Triglycerides Cholesterol LDL Cholesterol, Calc VLDL Cholesterol, Calc HDL Cholesterol Cholesterol/HDL Ratio Specimen Rejected Blood Type Antibody Screen Crossmatch 3 05/23/18 05/23/18 05/23/18 20:13 16:36 11:53 WBC RBC Hgb Hct MCV MCH MCHC RDW Plt Count MPV Immature Gran % Seg Neutrophils % Lymphocytes % Monocytes % Eosinophils % Basophils % Neutrophils # Lymphocytes # Monocytes # Eosinophils # Basophils # Sodium Potassium Chloride Carbon Dioxide BUN Creatinine Est GFR ( Amer) Est GFR (Non-Af Amer) BUN/Creatinine Ratio Glucose POC Glucose 140 H 131 H 151 H Calculated Osmolality Calcium Phosphorus Magnesium Total Bilirubin AST ALT Alkaline Phosphatase Serum Total Protein Albumin Globulin Albumin/Globulin Ratio Triglycerides Cholesterol LDL Cholesterol, Calc VLDL Cholesterol, Calc HDL Cholesterol Cholesterol/HDL Ratio Specimen Rejected Blood Type Antibody Screen Crossmatch 3 05/23/18 05/23/18 05/23/18 07:27 05:30 05:30 WBC 9.2 RBC 2.79 L Hgb 8.5 L Hct 26.7 L MCV 95.7 MCH 30.5 MCHC 31.8 RDW 17.3 H Plt Count 280 MPV 11.1 Immature Gran % Seg Neutrophils % Lymphocytes % Monocytes % Eosinophils % Basophils % Neutrophils # Lymphocytes # Monocytes # Eosinophils # Basophils # Sodium 138 Potassium 4.0 Chloride 108 H Carbon Dioxide 27 BUN 24 H Creatinine 0.75 Est GFR ( Amer) > 60 Est GFR (Non-Af Amer) > 60 BUN/Creatinine Ratio 32 H Glucose 154 H POC Glucose 140 H Calculated Osmolality 293 Calcium 8.3 L Phosphorus 3.0 Magnesium 1.9 Total Bilirubin AST ALT Alkaline Phosphatase Serum Total Protein Albumin Globulin Albumin/Globulin Ratio Triglycerides Cholesterol LDL Cholesterol, Calc VLDL Cholesterol, Calc HDL Cholesterol Cholesterol/HDL Ratio Specimen Rejected Blood Type Antibody Screen Crossmatch 3 05/23/18 05/23/18 05/22/18 04:23 00:38 19:10 WBC RBC Hgb Hct MCV MCH MCHC RDW Plt Count MPV Immature Gran % Seg Neutrophils % Lymphocytes % Monocytes % Eosinophils % Basophils % Neutrophils # Lymphocytes # Monocytes # Eosinophils # Basophils # Sodium Potassium Chloride Carbon Dioxide BUN Creatinine Est GFR ( Amer) Est GFR (Non-Af Amer) BUN/Creatinine Ratio Glucose POC Glucose 169 H 153 H 170 H Calculated Osmolality Calcium Phosphorus Magnesium Total Bilirubin AST ALT Alkaline Phosphatase Serum Total Protein Albumin Globulin Albumin/Globulin Ratio Triglycerides Cholesterol LDL Cholesterol, Calc VLDL Cholesterol, Calc HDL Cholesterol Cholesterol/HDL Ratio Specimen Rejected Blood Type Antibody Screen Crossmatch 3 05/22/18 05/22/18 05/22/18 16:47 11:17 07:45 WBC RBC Hgb Hct MCV MCH MCHC RDW Plt Count MPV Immature Gran % Seg Neutrophils % Lymphocytes % Monocytes % Eosinophils % Basophils % Neutrophils # Lymphocytes # Monocytes # Eosinophils # Basophils # Sodium Potassium Chloride Carbon Dioxide BUN Creatinine Est GFR ( Amer) Est GFR (Non-Af Amer) BUN/Creatinine Ratio Glucose POC Glucose 140 H 153 H 155 H Calculated Osmolality Calcium Phosphorus Magnesium Total Bilirubin AST ALT Alkaline Phosphatase Serum Total Protein Albumin Globulin Albumin/Globulin Ratio Triglycerides Cholesterol LDL Cholesterol, Calc VLDL Cholesterol, Calc HDL Cholesterol Cholesterol/HDL Ratio Specimen Rejected Blood Type Antibody Screen Crossmatch 3 05/22/18 05/22/18 05/22/18 04:08 04:00 04:00 WBC 8.4 RBC 2.83 L Hgb 8.6 L Hct 26.7 L MCV 94.3 MCH 30.4 MCHC 32.2 RDW 18.1 H Plt Count 234 MPV 11.3 Immature Gran % 0.4 Seg Neutrophils % 75.8 Lymphocytes % 9.2 Monocytes % 11.7 Eosinophils % 2.7 Basophils % 0.2 Neutrophils # 6.4 Lymphocytes # 0.8 Monocytes # 1.0 Eosinophils # 0.2 Basophils # 0.0 Sodium 139 Potassium 4.0 Chloride 109 H Carbon Dioxide 26 BUN 24 H Creatinine 0.74 Est GFR ( Amer) > 60 Est GFR (Non-Af Amer) > 60 BUN/Creatinine Ratio 32 H Glucose 106 H POC Glucose 111 H Calculated Osmolality 292 Calcium 8.2 L Phosphorus 2.8 Magnesium 1.9 Total Bilirubin 0.4 AST 30 ALT 53 H Alkaline Phosphatase 70 Serum Total Protein 4.7 L Albumin 2.5 L Globulin 2.2 L Albumin/Globulin Ratio 1.1 Triglycerides 70 Cholesterol 91 LDL Cholesterol, Calc 49 VLDL Cholesterol, Calc 14 HDL Cholesterol 28 L Cholesterol/HDL Ratio 3.3 Specimen Rejected Blood Type Antibody Screen Crossmatch 3 05/22/18 05/21/18 05/21/18 00:18 20:58 16:12 WBC RBC Hgb Hct MCV MCH MCHC RDW Plt Count MPV Immature Gran % Seg Neutrophils % Lymphocytes % Monocytes % Eosinophils % Basophils % Neutrophils # Lymphocytes # Monocytes # Eosinophils # Basophils # Sodium Potassium Chloride Carbon Dioxide BUN Creatinine Est GFR ( Amer) Est GFR (Non-Af Amer) BUN/Creatinine Ratio Glucose POC Glucose 159 H 135 H 143 H Calculated Osmolality Calcium Phosphorus Magnesium Total Bilirubin AST ALT Alkaline Phosphatase Serum Total Protein Albumin Globulin Albumin/Globulin Ratio Triglycerides Cholesterol LDL Cholesterol, Calc VLDL Cholesterol, Calc HDL Cholesterol Cholesterol/HDL Ratio Specimen Rejected Blood Type Antibody Screen Crossmatch 3 05/21/18 05/21/18 05/21/18 11:48 07:43 04:53 WBC RBC Hgb Hct MCV MCH MCHC RDW Plt Count MPV Immature Gran % Seg Neutrophils % Lymphocytes % Monocytes % Eosinophils % Basophils % Neutrophils # Lymphocytes # Monocytes # Eosinophils # Basophils # Sodium Potassium Chloride Carbon Dioxide BUN Creatinine Est GFR ( Amer) Est GFR (Non-Af Amer) BUN/Creatinine Ratio Glucose POC Glucose 151 H 170 H 139 H Calculated Osmolality Calcium Phosphorus Magnesium Total Bilirubin AST ALT Alkaline Phosphatase Serum Total Protein Albumin Globulin Albumin/Globulin Ratio Triglycerides Cholesterol LDL Cholesterol, Calc VLDL Cholesterol, Calc HDL Cholesterol Cholesterol/HDL Ratio Specimen Rejected Blood Type Antibody Screen Crossmatch 3 05/21/18 05/21/18 05/21/18 04:05 04:05 00:23 WBC 9.0 RBC 2.93 L Hgb 8.9 L Hct 28.1 L MCV 95.9 MCH 30.4 MCHC 31.7 RDW 18.4 H Plt Count 210 MPV 11.8 Immature Gran % 0.4 Seg Neutrophils % 75.3 Lymphocytes % 10.6 Monocytes % 10.6 Eosinophils % 2.8 Basophils % 0.3 Neutrophils # 6.8 Lymphocytes # 1.0 Monocytes # 1.0 Eosinophils # 0.3 Basophils # 0.0 Sodium 139 Potassium 3.9 Chloride 109 H Carbon Dioxide 25 BUN 26 H Creatinine 0.75 Est GFR ( Amer) > 60 Est GFR (Non-Af Amer) > 60 BUN/Creatinine Ratio 35 H Glucose 113 H POC Glucose 150 H Calculated Osmolality 294 Calcium 8.2 L Phosphorus 2.4 L Magnesium 1.9 Total Bilirubin AST ALT Alkaline Phosphatase Serum Total Protein Albumin Globulin Albumin/Globulin Ratio Triglycerides Cholesterol LDL Cholesterol, Calc VLDL Cholesterol, Calc HDL Cholesterol Cholesterol/HDL Ratio Specimen Rejected Blood Type Antibody Screen Crossmatch 3 05/20/18 05/20/18 05/20/18 20:40 16:37 11:01 WBC RBC Hgb Hct MCV MCH MCHC RDW Plt Count MPV Immature Gran % Seg Neutrophils % Lymphocytes % Monocytes % Eosinophils % Basophils % Neutrophils # Lymphocytes # Monocytes # Eosinophils # Basophils # Sodium Potassium Chloride Carbon Dioxide BUN Creatinine Est GFR ( Amer) Est GFR (Non-Af Amer) BUN/Creatinine Ratio Glucose POC Glucose 147 H 153 H 156 H Calculated Osmolality Calcium Phosphorus Magnesium Total Bilirubin AST ALT Alkaline Phosphatase Serum Total Protein Albumin Globulin Albumin/Globulin Ratio Triglycerides Cholesterol LDL Cholesterol, Calc VLDL Cholesterol, Calc HDL Cholesterol Cholesterol/HDL Ratio Specimen Rejected Blood Type Antibody Screen Crossmatch 3 0905/20/18 05/20/18 07:52 06:53 06:43 WBC 9.3 RBC 2.99 L Hgb 9.1 L Hct 29.0 L MCV 97.0 MCH 30.4 MCHC 31.4 L RDW 18.7 H Plt Count 187 MPV 11.1 Immature Gran % 0.4 Seg Neutrophils % 80.3 Lymphocytes % 6.5 Monocytes % 12.3 Eosinophils % 0.3 Basophils % 0.2 Neutrophils # 7.5 Lymphocytes # 0.6 Monocytes # 1.1 Eosinophils # 0.0 Basophils # 0.0 Sodium Potassium Chloride Carbon Dioxide BUN Creatinine Est GFR ( Amer) Est GFR (Non-Af Amer) BUN/Creatinine Ratio Glucose POC Glucose 142 H Calculated Osmolality Calcium Phosphorus Magnesium Total Bilirubin AST ALT Alkaline Phosphatase Serum Total Protein Albumin Globulin Albumin/Globulin Ratio Triglycerides Cholesterol LDL Cholesterol, Calc VLDL Cholesterol, Calc HDL Cholesterol Cholesterol/HDL Ratio Specimen Rejected Clotted Blood Type Antibody Screen Crossmatch 3 05/20/18 05/20/18 05/20/18 06:15 04:26 00:02 WBC RBC Hgb Hct MCV MCH MCHC RDW Plt Count MPV Immature Gran % Seg Neutrophils % Lymphocytes % Monocytes % Eosinophils % Basophils % Neutrophils # Lymphocytes # Monocytes # Eosinophils # Basophils # Sodium 135 L Potassium 4.1 Chloride 106 Carbon Dioxide 23 BUN 25 H Creatinine 0.76 Est GFR ( Amer) > 60 Est GFR (Non-Af Amer) > 60 BUN/Creatinine Ratio 33 H Glucose 131 H POC Glucose 151 H 151 H Calculated Osmolality 286 Calcium 8.5 L Phosphorus 2.0 L Magnesium 1.9 Total Bilirubin AST ALT Alkaline Phosphatase Serum Total Protein Albumin Globulin Albumin/Globulin Ratio Triglycerides Cholesterol LDL Cholesterol, Calc VLDL Cholesterol, Calc HDL Cholesterol Cholesterol/HDL Ratio Specimen Rejected Blood Type Antibody Screen Crossmatch 3 05/19/18 05/19/18 05/19/18 20:21 15:58 11:53 WBC RBC Hgb Hct MCV MCH MCHC RDW Plt Count MPV Immature Gran % Seg Neutrophils % Lymphocytes % Monocytes % Eosinophils % Basophils % Neutrophils # Lymphocytes # Monocytes # Eosinophils # Basophils # Sodium Potassium Chloride Carbon Dioxide BUN Creatinine Est GFR ( Amer) Est GFR (Non-Af Amer) BUN/Creatinine Ratio Glucose POC Glucose 113 H 135 H 151 H Calculated Osmolality Calcium Phosphorus Magnesium Total Bilirubin AST ALT Alkaline Phosphatase Serum Total Protein Albumin Globulin Albumin/Globulin Ratio Triglycerides Cholesterol LDL Cholesterol, Calc VLDL Cholesterol, Calc HDL Cholesterol Cholesterol/HDL Ratio Specimen Rejected Blood Type Antibody Screen Crossmatch 3 05/19/18 05/19/18 05/19/18 07:53 04:12 04:00 WBC RBC Hgb Hct MCV MCH MCHC RDW Plt Count MPV Immature Gran % Seg Neutrophils % Lymphocytes % Monocytes % Eosinophils % Basophils % Neutrophils # Lymphocytes # Monocytes # Eosinophils # Basophils # Sodium 137 Potassium 3.9 Chloride 109 H Carbon Dioxide 22 L BUN 29 H Creatinine 0.82 Est GFR ( Amer) > 60 Est GFR (Non-Af Amer) > 60 BUN/Creatinine Ratio 35 H Glucose 153 H POC Glucose 145 H 159 H Calculated Osmolality 293 Calcium 8.4 L Phosphorus 2.7 Magnesium 1.8 Total Bilirubin AST ALT Alkaline Phosphatase Serum Total Protein Albumin Globulin Albumin/Globulin Ratio Triglycerides Cholesterol LDL Cholesterol, Calc VLDL Cholesterol, Calc HDL Cholesterol Cholesterol/HDL Ratio Specimen Rejected Blood Type Antibody Screen Crossmatch 3 05/19/18 05/19/18 05/18/18 04:00 00:33 21:05 WBC 16.1 H RBC 3.17 L Hgb 9.5 L Hct 30.0 L MCV 94.6 MCH 30.0 MCHC 31.7 RDW 18.8 H Plt Count 219 MPV 11.6 Immature Gran % Seg Neutrophils % Lymphocytes % Monocytes % Eosinophils % Basophils % Neutrophils # Lymphocytes # Monocytes # Eosinophils # Basophils # Sodium Potassium Chloride Carbon Dioxide BUN Creatinine Est GFR ( Amer) Est GFR (Non-Af Amer) BUN/Creatinine Ratio Glucose POC Glucose 153 H 153 H Calculated Osmolality Calcium Phosphorus Magnesium Total Bilirubin AST ALT Alkaline Phosphatase Serum Total Protein Albumin Globulin Albumin/Globulin Ratio Triglycerides Cholesterol LDL Cholesterol, Calc VLDL Cholesterol, Calc HDL Cholesterol Cholesterol/HDL Ratio Specimen Rejected Blood Type Antibody Screen Crossmatch 3 05/18/18 05/18/18 05/18/18 16:20 11:23 06:56 WBC RBC Hgb Hct MCV MCH MCHC RDW Plt Count MPV Immature Gran % Seg Neutrophils % Lymphocytes % Monocytes % Eosinophils % Basophils % Neutrophils # Lymphocytes # Monocytes # Eosinophils # Basophils # Sodium Potassium Chloride Carbon Dioxide BUN Creatinine Est GFR ( Amer) Est GFR (Non-Af Amer) BUN/Creatinine Ratio Glucose POC Glucose 144 H 142 H 267 H Calculated Osmolality Calcium Phosphorus Magnesium Total Bilirubin AST ALT Alkaline Phosphatase Serum Total Protein Albumin Globulin Albumin/Globulin Ratio Triglycerides Cholesterol LDL Cholesterol, Calc VLDL Cholesterol, Calc HDL Cholesterol Cholesterol/HDL Ratio Specimen Rejected Blood Type Antibody Screen Crossmatch 3 05/18/18 05/18/18 05/18/18 05:39 05:39 05:39 WBC 15.1 H D RBC 3.36 L Hgb 10.1 L Hct 31.3 L MCV 93.2 MCH 30.1 MCHC 32.3 RDW 17.6 H Plt Count 195 MPV 11.5 Immature Gran % 0.5 Seg Neutrophils % 90.4 Lymphocytes % 2.4 Monocytes % 6.6 Eosinophils % 0.0 Basophils % 0.1 Neutrophils # 13.7 H Lymphocytes # 0.4 L Monocytes # 1.0 Eosinophils # 0.0 Basophils # 0.0 Sodium 137 Potassium 3.9 Chloride 109 H Carbon Dioxide 22 L BUN 28 H Creatinine 0.76 Est GFR ( Amer) > 60 Est GFR (Non-Af Amer) > 60 BUN/Creatinine Ratio 37 H Glucose 248 H POC Glucose Calculated Osmolality 298 Calcium 8.3 L Phosphorus 1.9 L Magnesium 1.7 Total Bilirubin AST ALT Alkaline Phosphatase Serum Total Protein Albumin Globulin Albumin/Globulin Ratio Triglycerides Cholesterol LDL Cholesterol, Calc VLDL Cholesterol, Calc HDL Cholesterol Cholesterol/HDL Ratio Specimen Rejected Blood Type Antibody Screen Crossmatch 3 05/18/18 05/18/18 05/18/18 03:39 00:56 00:17 WBC RBC Hgb 10.3 L Hct 30.9 L MCV MCH MCHC RDW Plt Count MPV Immature Gran % Seg Neutrophils % Lymphocytes % Monocytes % Eosinophils % Basophils % Neutrophils # Lymphocytes # Monocytes # Eosinophils # Basophils # Sodium Potassium Chloride Carbon Dioxide BUN Creatinine Est GFR ( Amer) Est GFR (Non-Af Amer) BUN/Creatinine Ratio Glucose POC Glucose 272 H 275 H Calculated Osmolality Calcium Phosphorus Magnesium Total Bilirubin AST ALT Alkaline Phosphatase Serum Total Protein Albumin Globulin Albumin/Globulin Ratio Triglycerides Cholesterol LDL Cholesterol, Calc VLDL Cholesterol, Calc HDL Cholesterol Cholesterol/HDL Ratio Specimen Rejected Blood Type Antibody Screen Crossmatch 3 05/17/18 05/17/18 05/17/18 20:24 11:14 08:02 WBC RBC Hgb Hct MCV MCH MCHC RDW Plt Count MPV Immature Gran % Seg Neutrophils % Lymphocytes % Monocytes % Eosinophils % Basophils % Neutrophils # Lymphocytes # Monocytes # Eosinophils # Basophils # Sodium Potassium Chloride Carbon Dioxide BUN Creatinine Est GFR ( Amer) Est GFR (Non-Af Amer) BUN/Creatinine Ratio Glucose POC Glucose 256 H 140 H 133 H Calculated Osmolality Calcium Phosphorus Magnesium Total Bilirubin AST ALT Alkaline Phosphatase Serum Total Protein Albumin Globulin Albumin/Globulin Ratio Triglycerides Cholesterol LDL Cholesterol, Calc VLDL Cholesterol, Calc HDL Cholesterol Cholesterol/HDL Ratio Specimen Rejected Blood Type Antibody Screen Crossmatch 3 05/16/18 05/14/18 20:02 20:54 WBC RBC Hgb Hct MCV MCH MCHC RDW Plt Count MPV Immature Gran % Seg Neutrophils % Lymphocytes % Monocytes % Eosinophils % Basophils % Neutrophils # Lymphocytes # Monocytes # Eosinophils # Basophils # Sodium Potassium Chloride Carbon Dioxide BUN Creatinine Est GFR ( Amer) Est GFR (Non-Af Amer) BUN/Creatinine Ratio Glucose POC Glucose 135 H Calculated Osmolality Calcium Phosphorus Magnesium Total Bilirubin AST ALT Alkaline Phosphatase Serum Total Protein Albumin Globulin Albumin/Globulin Ratio Triglycerides Cholesterol LDL Cholesterol, Calc VLDL Cholesterol, Calc HDL Cholesterol Cholesterol/HDL Ratio Specimen Rejected Blood Type O POSITIVE Antibody Screen NEGATIVE Crossmatch See Detail Consult Discharge Plan - Plan Referrals: Cherri Amado CNP [Primary Care Provider] - <Igor Vargas - Last Filed: 05/24/18 20:56> Date of Encounter: 05/24/18 - Data of Consult Requesting Physician: Cameron Montez MD Primary Care Provider: DONI Reed - Consult Narrative History of present illness: Mr. Apple is a 82 year old male Oncology - Exam - Constitutional Vitals: Temp Pulse Resp BP Pulse Ox 98.4 F 86 16 151/70 95 05/24/18 19:30 05/24/18 19:30 05/24/18 19:30 05/24/18 19:30 05/24/18 19:30 Oncology - Results Labs: 3 05/24/18 05/24/18 05/24/18 16:39 11:00 07:02 WBC RBC Hgb Hct MCV MCH MCHC RDW Plt Count MPV Immature Gran % Seg Neutrophils % Lymphocytes % Monocytes % Eosinophils % Basophils % Neutrophils # Lymphocytes # Monocytes # Eosinophils # Basophils # Sodium Potassium Chloride Carbon Dioxide BUN Creatinine Est GFR ( Amer) Est GFR (Non-Af Amer) BUN/Creatinine Ratio Glucose POC Glucose 154 H 164 H 128 H Calculated Osmolality Calcium Phosphorus Magnesium Total Bilirubin AST ALT Alkaline Phosphatase Serum Total Protein Albumin Globulin Albumin/Globulin Ratio Triglycerides Cholesterol LDL Cholesterol, Calc VLDL Cholesterol, Calc HDL Cholesterol Cholesterol/HDL Ratio Specimen Rejected Crossmatch 3 05/24/18 05/24/18 05/24/18 06:15 06:15 03:59 WBC 8.4 RBC 2.95 L Hgb 8.8 L Hct 28.2 L MCV 95.6 MCH 29.8 MCHC 31.2 L RDW 17.2 H Plt Count 305 MPV 11.2 Immature Gran % Seg Neutrophils % Lymphocytes % Monocytes % Eosinophils % Basophils % Neutrophils # Lymphocytes # Monocytes # Eosinophils # Basophils # Sodium 138 Potassium 4.2 Chloride 108 H Carbon Dioxide 26 BUN 23 Creatinine 0.76 Est GFR ( Amer) > 60 Est GFR (Non-Af Amer) > 60 BUN/Creatinine Ratio 30 H Glucose 129 H POC Glucose 131 H Calculated Osmolality 291 Calcium 8.3 L Phosphorus 3.4 Magnesium 1.9 Total Bilirubin AST ALT Alkaline Phosphatase Serum Total Protein Albumin Globulin Albumin/Globulin Ratio Triglycerides Cholesterol LDL Cholesterol, Calc VLDL Cholesterol, Calc HDL Cholesterol Cholesterol/HDL Ratio Specimen Rejected Crossmatch 3 05/24/18 05/23/18 05/23/18 00:02 20:13 16:36 WBC RBC Hgb Hct MCV MCH MCHC RDW Plt Count MPV Immature Gran % Seg Neutrophils % Lymphocytes % Monocytes % Eosinophils % Basophils % Neutrophils # Lymphocytes # Monocytes # Eosinophils # Basophils # Sodium Potassium Chloride Carbon Dioxide BUN Creatinine Est GFR ( Amer) Est GFR (Non-Af Amer) BUN/Creatinine Ratio Glucose POC Glucose 158 H 140 H 131 H Calculated Osmolality Calcium Phosphorus Magnesium Total Bilirubin AST ALT Alkaline Phosphatase Serum Total Protein Albumin Globulin Albumin/Globulin Ratio Triglycerides Cholesterol LDL Cholesterol, Calc VLDL Cholesterol, Calc HDL Cholesterol Cholesterol/HDL Ratio Specimen Rejected Crossmatch 3 05/23/18 05/23/18 05/23/18 11:53 07:27 05:30 WBC 9.2 RBC 2.79 L Hgb 8.5 L Hct 26.7 L MCV 95.7 MCH 30.5 MCHC 31.8 RDW 17.3 H Plt Count 280 MPV 11.1 Immature Gran % Seg Neutrophils % Lymphocytes % Monocytes % Eosinophils % Basophils % Neutrophils # Lymphocytes # Monocytes # Eosinophils # Basophils # Sodium Potassium Chloride Carbon Dioxide BUN Creatinine Est GFR ( Amer) Est GFR (Non-Af Amer) BUN/Creatinine Ratio Glucose POC Glucose 151 H 140 H Calculated Osmolality Calcium Phosphorus Magnesium Total Bilirubin AST ALT Alkaline Phosphatase Serum Total Protein Albumin Globulin Albumin/Globulin Ratio Triglycerides Cholesterol LDL Cholesterol, Calc VLDL Cholesterol, Calc HDL Cholesterol Cholesterol/HDL Ratio Specimen Rejected Crossmatch 3 05/23/18 05/23/18 05/23/18 05:30 04:23 00:38 WBC RBC Hgb Hct MCV MCH MCHC RDW Plt Count MPV Immature Gran % Seg Neutrophils % Lymphocytes % Monocytes % Eosinophils % Basophils % Neutrophils # Lymphocytes # Monocytes # Eosinophils # Basophils # Sodium 138 Potassium 4.0 Chloride 108 H Carbon Dioxide 27 BUN 24 H Creatinine 0.75 Est GFR ( Amer) > 60 Est GFR (Non-Af Amer) > 60 BUN/Creatinine Ratio 32 H Glucose 154 H POC Glucose 169 H 153 H Calculated Osmolality 293 Calcium 8.3 L Phosphorus 3.0 Magnesium 1.9 Total Bilirubin AST ALT Alkaline Phosphatase Serum Total Protein Albumin Globulin Albumin/Globulin Ratio Triglycerides Cholesterol LDL Cholesterol, Calc VLDL Cholesterol, Calc HDL Cholesterol Cholesterol/HDL Ratio Specimen Rejected Crossmatch 3 05/22/18 05/22/18 05/22/18 19:10 16:47 11:17 WBC RBC Hgb Hct MCV MCH MCHC RDW Plt Count MPV Immature Gran % Seg Neutrophils % Lymphocytes % Monocytes % Eosinophils % Basophils % Neutrophils # Lymphocytes # Monocytes # Eosinophils # Basophils # Sodium Potassium Chloride Carbon Dioxide BUN Creatinine Est GFR ( Amer) Est GFR (Non-Af Amer) BUN/Creatinine Ratio Glucose POC Glucose 170 H 140 H 153 H Calculated Osmolality Calcium Phosphorus Magnesium Total Bilirubin AST ALT Alkaline Phosphatase Serum Total Protein Albumin Globulin Albumin/Globulin Ratio Triglycerides Cholesterol LDL Cholesterol, Calc VLDL Cholesterol, Calc HDL Cholesterol Cholesterol/HDL Ratio Specimen Rejected Crossmatch 3 05/22/18 05/22/18 05/22/18 07:45 04:08 04:00 WBC RBC Hgb Hct MCV MCH MCHC RDW Plt Count MPV Immature Gran % Seg Neutrophils % Lymphocytes % Monocytes % Eosinophils % Basophils % Neutrophils # Lymphocytes # Monocytes # Eosinophils # Basophils # Sodium 139 Potassium 4.0 Chloride 109 H Carbon Dioxide 26 BUN 24 H Creatinine 0.74 Est GFR ( Amer) > 60 Est GFR (Non-Af Amer) > 60 BUN/Creatinine Ratio 32 H Glucose 106 H POC Glucose 155 H 111 H Calculated Osmolality 292 Calcium 8.2 L Phosphorus 2.8 Magnesium 1.9 Total Bilirubin 0.4 AST 30 ALT 53 H Alkaline Phosphatase 70 Serum Total Protein 4.7 L Albumin 2.5 L Globulin 2.2 L Albumin/Globulin Ratio 1.1 Triglycerides 70 Cholesterol 91 LDL Cholesterol, Calc 49 VLDL Cholesterol, Calc 14 HDL Cholesterol 28 L Cholesterol/HDL Ratio 3.3 Specimen Rejected Crossmatch 3 05/22/18 05/22/18 05/21/18 04:00 00:18 20:58 WBC 8.4 RBC 2.83 L Hgb 8.6 L Hct 26.7 L MCV 94.3 MCH 30.4 MCHC 32.2 RDW 18.1 H Plt Count 234 MPV 11.3 Immature Gran % 0.4 Seg Neutrophils % 75.8 Lymphocytes % 9.2 Monocytes % 11.7 Eosinophils % 2.7 Basophils % 0.2 Neutrophils # 6.4 Lymphocytes # 0.8 Monocytes # 1.0 Eosinophils # 0.2 Basophils # 0.0 Sodium Potassium Chloride Carbon Dioxide BUN Creatinine Est GFR ( Amer) Est GFR (Non-Af Amer) BUN/Creatinine Ratio Glucose POC Glucose 159 H 135 H Calculated Osmolality Calcium Phosphorus Magnesium Total Bilirubin AST ALT Alkaline Phosphatase Serum Total Protein Albumin Globulin Albumin/Globulin Ratio Triglycerides Cholesterol LDL Cholesterol, Calc VLDL Cholesterol, Calc HDL Cholesterol Cholesterol/HDL Ratio Specimen Rejected Crossmatch 3 05/21/18 05/21/18 05/21/18 16:12 11:48 07:43 WBC RBC Hgb Hct MCV MCH MCHC RDW Plt Count MPV Immature Gran % Seg Neutrophils % Lymphocytes % Monocytes % Eosinophils % Basophils % Neutrophils # Lymphocytes # Monocytes # Eosinophils # Basophils # Sodium Potassium Chloride Carbon Dioxide BUN Creatinine Est GFR ( Amer) Est GFR (Non-Af Amer) BUN/Creatinine Ratio Glucose POC Glucose 143 H 151 H 170 H Calculated Osmolality Calcium Phosphorus Magnesium Total Bilirubin AST ALT Alkaline Phosphatase Serum Total Protein Albumin Globulin Albumin/Globulin Ratio Triglycerides Cholesterol LDL Cholesterol, Calc VLDL Cholesterol, Calc HDL Cholesterol Cholesterol/HDL Ratio Specimen Rejected Crossmatch 3 05/21/18 05/21/18 05/21/18 04:53 04:05 04:05 WBC 9.0 RBC 2.93 L Hgb 8.9 L Hct 28.1 L MCV 95.9 MCH 30.4 MCHC 31.7 RDW 18.4 H Plt Count 210 MPV 11.8 Immature Gran % 0.4 Seg Neutrophils % 75.3 Lymphocytes % 10.6 Monocytes % 10.6 Eosinophils % 2.8 Basophils % 0.3 Neutrophils # 6.8 Lymphocytes # 1.0 Monocytes # 1.0 Eosinophils # 0.3 Basophils # 0.0 Sodium 139 Potassium 3.9 Chloride 109 H Carbon Dioxide 25 BUN 26 H Creatinine 0.75 Est GFR ( Amer) > 60 Est GFR (Non-Af Amer) > 60 BUN/Creatinine Ratio 35 H Glucose 113 H POC Glucose 139 H Calculated Osmolality 294 Calcium 8.2 L Phosphorus 2.4 L Magnesium 1.9 Total Bilirubin AST ALT Alkaline Phosphatase Serum Total Protein Albumin Globulin Albumin/Globulin Ratio Triglycerides Cholesterol LDL Cholesterol, Calc VLDL Cholesterol, Calc HDL Cholesterol Cholesterol/HDL Ratio Specimen Rejected Crossmatch 3 05/21/18 05/20/18 05/20/18 00:23 20:40 16:37 WBC RBC Hgb Hct MCV MCH MCHC RDW Plt Count MPV Immature Gran % Seg Neutrophils % Lymphocytes % Monocytes % Eosinophils % Basophils % Neutrophils # Lymphocytes # Monocytes # Eosinophils # Basophils # Sodium Potassium Chloride Carbon Dioxide BUN Creatinine Est GFR ( Amer) Est GFR (Non-Af Amer) BUN/Creatinine Ratio Glucose POC Glucose 150 H 147 H 153 H Calculated Osmolality Calcium Phosphorus Magnesium Total Bilirubin AST ALT Alkaline Phosphatase Serum Total Protein Albumin Globulin Albumin/Globulin Ratio Triglycerides Cholesterol LDL Cholesterol, Calc VLDL Cholesterol, Calc HDL Cholesterol Cholesterol/HDL Ratio Specimen Rejected Crossmatch 3 05/20/18 05/20/18 05/20/18 11:01 07:52 06:53 WBC 9.3 RBC 2.99 L Hgb 9.1 L Hct 29.0 L MCV 97.0 MCH 30.4 MCHC 31.4 L RDW 18.7 H Plt Count 187 MPV 11.1 Immature Gran % 0.4 Seg Neutrophils % 80.3 Lymphocytes % 6.5 Monocytes % 12.3 Eosinophils % 0.3 Basophils % 0.2 Neutrophils # 7.5 Lymphocytes # 0.6 Monocytes # 1.1 Eosinophils # 0.0 Basophils # 0.0 Sodium Potassium Chloride Carbon Dioxide BUN Creatinine Est GFR ( Amer) Est GFR (Non-Af Amer) BUN/Creatinine Ratio Glucose POC Glucose 156 H 142 H Calculated Osmolality Calcium Phosphorus Magnesium Total Bilirubin AST ALT Alkaline Phosphatase Serum Total Protein Albumin Globulin Albumin/Globulin Ratio Triglycerides Cholesterol LDL Cholesterol, Calc VLDL Cholesterol, Calc HDL Cholesterol Cholesterol/HDL Ratio Specimen Rejected Crossmatch 3 05/20/18 05/20/18 05/20/18 06:43 06:15 04:26 WBC RBC Hgb Hct MCV MCH MCHC RDW Plt Count MPV Immature Gran % Seg Neutrophils % Lymphocytes % Monocytes % Eosinophils % Basophils % Neutrophils # Lymphocytes # Monocytes # Eosinophils # Basophils # Sodium 135 L Potassium 4.1 Chloride 106 Carbon Dioxide 23 BUN 25 H Creatinine 0.76 Est GFR ( Amer) > 60 Est GFR (Non-Af Amer) > 60 BUN/Creatinine Ratio 33 H Glucose 131 H POC Glucose 151 H Calculated Osmolality 286 Calcium 8.5 L Phosphorus 2.0 L Magnesium 1.9 Total Bilirubin AST ALT Alkaline Phosphatase Serum Total Protein Albumin Globulin Albumin/Globulin Ratio Triglycerides Cholesterol LDL Cholesterol, Calc VLDL Cholesterol, Calc HDL Cholesterol Cholesterol/HDL Ratio Specimen Rejected Clotted Crossmatch 3 05/20/18 05/19/18 05/19/18 00:02 20:21 15:58 WBC RBC Hgb Hct MCV MCH MCHC RDW Plt Count MPV Immature Gran % Seg Neutrophils % Lymphocytes % Monocytes % Eosinophils % Basophils % Neutrophils # Lymphocytes # Monocytes # Eosinophils # Basophils # Sodium Potassium Chloride Carbon Dioxide BUN Creatinine Est GFR ( Amer) Est GFR (Non-Af Amer) BUN/Creatinine Ratio Glucose POC Glucose 151 H 113 H 135 H Calculated Osmolality Calcium Phosphorus Magnesium Total Bilirubin AST ALT Alkaline Phosphatase Serum Total Protein Albumin Globulin Albumin/Globulin Ratio Triglycerides Cholesterol LDL Cholesterol, Calc VLDL Cholesterol, Calc HDL Cholesterol Cholesterol/HDL Ratio Specimen Rejected Crossmatch 3 05/19/18 05/19/18 05/19/18 11:53 07:53 04:12 WBC RBC Hgb Hct MCV MCH MCHC RDW Plt Count MPV Immature Gran % Seg Neutrophils % Lymphocytes % Monocytes % Eosinophils % Basophils % Neutrophils # Lymphocytes # Monocytes # Eosinophils # Basophils # Sodium Potassium Chloride Carbon Dioxide BUN Creatinine Est GFR ( Amer) Est GFR (Non-Af Amer) BUN/Creatinine Ratio Glucose POC Glucose 151 H 145 H 159 H Calculated Osmolality Calcium Phosphorus Magnesium Total Bilirubin AST ALT Alkaline Phosphatase Serum Total Protein Albumin Globulin Albumin/Globulin Ratio Triglycerides Cholesterol LDL Cholesterol, Calc VLDL Cholesterol, Calc HDL Cholesterol Cholesterol/HDL Ratio Specimen Rejected Crossmatch 3 05/19/18 05/19/18 05/19/18 04:00 04:00 00:33 WBC 16.1 H RBC 3.17 L Hgb 9.5 L Hct 30.0 L MCV 94.6 MCH 30.0 MCHC 31.7 RDW 18.8 H Plt Count 219 MPV 11.6 Immature Gran % Seg Neutrophils % Lymphocytes % Monocytes % Eosinophils % Basophils % Neutrophils # Lymphocytes # Monocytes # Eosinophils # Basophils # Sodium 137 Potassium 3.9 Chloride 109 H Carbon Dioxide 22 L BUN 29 H Creatinine 0.82 Est GFR ( Amer) > 60 Est GFR (Non-Af Amer) > 60 BUN/Creatinine Ratio 35 H Glucose 153 H POC Glucose 153 H Calculated Osmolality 293 Calcium 8.4 L Phosphorus 2.7 Magnesium 1.8 Total Bilirubin AST ALT Alkaline Phosphatase Serum Total Protein Albumin Globulin Albumin/Globulin Ratio Triglycerides Cholesterol LDL Cholesterol, Calc VLDL Cholesterol, Calc HDL Cholesterol Cholesterol/HDL Ratio Specimen Rejected Crossmatch 3 05/18/18 05/18/18 05/18/18 21:05 16:20 11:23 WBC RBC Hgb Hct MCV MCH MCHC RDW Plt Count MPV Immature Gran % Seg Neutrophils % Lymphocytes % Monocytes % Eosinophils % Basophils % Neutrophils # Lymphocytes # Monocytes # Eosinophils # Basophils # Sodium Potassium Chloride Carbon Dioxide BUN Creatinine Est GFR ( Amer) Est GFR (Non-Af Amer) BUN/Creatinine Ratio Glucose POC Glucose 153 H 144 H 142 H Calculated Osmolality Calcium Phosphorus Magnesium Total Bilirubin AST ALT Alkaline Phosphatase Serum Total Protein Albumin Globulin Albumin/Globulin Ratio Triglycerides Cholesterol LDL Cholesterol, Calc VLDL Cholesterol, Calc HDL Cholesterol Cholesterol/HDL Ratio Specimen Rejected Crossmatch 3 05/18/18 05/18/18 05/18/18 06:56 05:39 05:39 WBC RBC Hgb Hct MCV MCH MCHC RDW Plt Count MPV Immature Gran % Seg Neutrophils % Lymphocytes % Monocytes % Eosinophils % Basophils % Neutrophils # Lymphocytes # Monocytes # Eosinophils # Basophils # Sodium 137 Potassium 3.9 Chloride 109 H Carbon Dioxide 22 L BUN 28 H Creatinine 0.76 Est GFR ( Amer) > 60 Est GFR (Non-Af Amer) > 60 BUN/Creatinine Ratio 37 H Glucose 248 H POC Glucose 267 H Calculated Osmolality 298 Calcium 8.3 L Phosphorus 1.9 L Magnesium 1.7 Total Bilirubin AST ALT Alkaline Phosphatase Serum Total Protein Albumin Globulin Albumin/Globulin Ratio Triglycerides Cholesterol LDL Cholesterol, Calc VLDL Cholesterol, Calc HDL Cholesterol Cholesterol/HDL Ratio Specimen Rejected Crossmatch 3 05/18/18 05/18/18 05/18/18 05:39 03:39 00:56 WBC 15.1 H D RBC 3.36 L Hgb 10.1 L 10.3 L Hct 31.3 L 30.9 L MCV 93.2 MCH 30.1 MCHC 32.3 RDW 17.6 H Plt Count 195 MPV 11.5 Immature Gran % 0.5 Seg Neutrophils % 90.4 Lymphocytes % 2.4 Monocytes % 6.6 Eosinophils % 0.0 Basophils % 0.1 Neutrophils # 13.7 H Lymphocytes # 0.4 L Monocytes # 1.0 Eosinophils # 0.0 Basophils # 0.0 Sodium Potassium Chloride Carbon Dioxide BUN Creatinine Est GFR ( Amer) Est GFR (Non-Af Amer) BUN/Creatinine Ratio Glucose POC Glucose 272 H Calculated Osmolality Calcium Phosphorus Magnesium Total Bilirubin AST ALT Alkaline Phosphatase Serum Total Protein Albumin Globulin Albumin/Globulin Ratio Triglycerides Cholesterol LDL Cholesterol, Calc VLDL Cholesterol, Calc HDL Cholesterol Cholesterol/HDL Ratio Specimen Rejected Crossmatch 3 05/18/18 05/17/18 05/14/18 00:17 20:24 20:54 WBC RBC Hgb Hct MCV MCH MCHC RDW Plt Count MPV Immature Gran % Seg Neutrophils % Lymphocytes % Monocytes % Eosinophils % Basophils % Neutrophils # Lymphocytes # Monocytes # Eosinophils # Basophils # Sodium Potassium Chloride Carbon Dioxide BUN Creatinine Est GFR ( Amer) Est GFR (Non-Af Amer) BUN/Creatinine Ratio Glucose POC Glucose 275 H 256 H Calculated Osmolality Calcium Phosphorus Magnesium Total Bilirubin AST ALT Alkaline Phosphatase Serum Total Protein Albumin Globulin Albumin/Globulin Ratio Triglycerides Cholesterol LDL Cholesterol, Calc VLDL Cholesterol, Calc HDL Cholesterol Cholesterol/HDL Ratio Specimen Rejected Crossmatch See Detail Inpatient Charges Provider: Dr. Jeff Vargas Consult - Inpatient Medicare Only: [id number] - Attending Attestation I examined this patient and my medical decision-making was reviewed with the resident. I agree with the documented findings, disposition and treatment plan as described except to the extent set forth below. Mr. Apple underwent partial gastrectomy for a stage IIIa ([id number]) poorly differentiated adenocarcinoma. No lymph were sampled. LVI present. We discussed with the patient and his daughter that we would usually recommend concurrent chemoradiation (Devine protocol) in this setting in robust, young patients. Given his age, I am uncertain this will be tolerated well but will be considered. We could also consider adjuvant chemotherapy with 5-fu/xeloda with oxaliplatin. I have recommended he d/c to SNF as planned, and I will arrange f/ u with me in 3 weeks. I will obtain PET/CT at that juncture to complete staging. All questions answered to the best of my ability.
--- NOTE | 2018-05-24 17:10 | Internal Med Progress Note ---
Hospitalist Progress Note - Encounter Date of Encounter: 05/24/18 Time of Encounter: 17:54 - Subjective Interval History: 82M admitted with GI bleeding found to be due to gastric adenocarcinoma is s/p subtotal gastrectomy and Venkatesh-en-Y reconstruction on 05/17/18. Pt Denies abdominal pain. Denies N/V. Denies fever or chills. Denies CP or SOB. - Exam Vitals: Temp Pulse Resp BP Pulse Ox 99.5 F 76 18 146/59 95 05/24/18 16:18 05/24/18 16:18 05/24/18 16:18 05/24/18 16:18 05/24/18 16:18 Exam: General: Alert and oriented, not in acute distress. HEENT: moist oral mucosa Cardiovascular:Normal S1 & S2, No JVD. Pulse regular. Lungs: clear to auscultation, no wheezes/rales Abdomen:Soft, non-tender, incision site appears dry and clean, bandage not removed. No guarding, tenderness or rebound Extremities:No edema Neurological:Normal cognition and motor skills. no dysarthria - Assessment and Plan (1) Ulcer at site of surgical anastomosis following bypass of stomach Current Visit: Yes Status: Acute Assessment and Plan: Dr. Joseph performed EGD on 05/11 with findings significant for large ulcer at the gastroenteric anastomosis, suspicious for cancer. s/p subtotal gastrectomy and Venkatesh-en-Y reconstruction on 05/17/18. Pt also had GI bleed and is s/p 7 units of blood. Diagnosed with adenocarcinoma. Surgery following and oncology consulted. - On TPN + FLD, diet per GS Pt's admission complicated by NSTEMI. (2) Upper GI bleeding Current Visit: Yes Status: Acute Assessment and Plan: Acute blood loss anemia due to UGIB due to anastomotic ulcer s/p 7 units PRBC transfusion this admission. Hgb 8.8 and stable. Will transfuse if hgb < 8. (3) Essential hypertension Current Visit: Yes Status: Chronic Assessment and Plan: Lisinopril-HCTZ increased to 40-25 mg QD. Lopressor IV PRN (4) Elevated troponin Current Visit: Yes Status: Acute (5) Acute blood loss anemia Current Visit: Yes Status: Acute Assessment and Plan: Acute blood loss anemia due to UGIB due to anastomotic ulcer s/p 7 units PRBC transfusion this admission. Hgb stable at 8.8. Will transfuse if < 8. (6) Renal mass Current Visit: Yes Status: Acute Assessment and Plan: Renal US: 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 MRI kidneys without with gadolinium recommended for additional characterization. 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 No mass lesion or enhancement abnormality. - Unlikely to represent mets (7) Adenocarcinoma Current Visit: Yes Status: Acute (8) Right middle lobe pulmonary nodule Current Visit: Yes Status: Chronic Assessment and Plan: 4 mm --> CT follow up in 12 months as an outpatient. DVT Prophylaxis: Sq heparin - Summary of Assessment and Plan Summary of Assessment and Plan: 82M admitted with GI bleeding found to be due to gastric adenocarcinoma is s/p subtotal gastrectomy and Venkatesh-en-Y reconstruction on 05/17/18 # Adenocarcinoma s/p subtotal gastrectomy and Venkatesh-en-Y reconstruction on - On TPN + FLD, diet per GS - GS appreciated: oncology consult in AM - Aggressive IS, PT/OT, OOB while eating - start antitussives to avoid abd wall pain with cough; rupesh gaffney adrián + cepacol prn # Acute blood loss anemia due to UGIB due to anastomotic ulcer s/p 7 units PRBC transfusion this admission - Hb 101 --> 9.1 --> 8.5, stable - will transfuse if consistently < 8 considering suspected CAD # HTN, uncontrolled - Increase lisinopril-HCTZ to 40-25 hs - Cont IV metoprolol # DM2: Hold metformin. HbA1C 5.3%. Cont SSI low dose # NSTEMI, presumed CAD - Initially, troponin 0.08 --> 0.45 peak during anemia with basal inferior WMA on echo, could be demand ischemia, cannot r/o underlying CAD - Outpatient ischemic workup - ASA on hold due to GIB - cont BB - resume home statin once diet advanced further - Cardiology appreciated: No cardiac rehab consult is warranted. With wall motion abnormality on echo ideally would recommend LHC, however patient is not a candidate with acute GI bleed. Can consider outpatient ischemic evaluation. will have pt f/u with Dr Hassan outpt # Renal mass - Renal US: 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 MRI kidneys without with gadolinium recommended for additional characterization. 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 No mass lesion or enhancement abnormality. - Unlikely to represent mets # RML pulm nodule: 4 mm --> CT follow up in 12 months as an outpatient # VTE prophy: heparin SubQ - Time Spent with Patient Total time spent is greater than 50% in coordination of care (as documented) at patient's floor/unit and/or counseling patient: less than 15 minutes Plan of Care Discussed with: patient Internal Medicine: Result - Labs CBC & Chem 7: 05/24/18 06:15 05/24/18 06:15 Labs: Short CBC 05/24/18 Range/Units 06:15 WBC 8.4 (4.3-11.1) K/mcL Hgb 8.8 L (12.9-16.9) g/dL Hct 28.2 L (37.5-50.1) % Plt Count 305 (140-400) K/mcL BMP 05/24/18 06:15 Sodium 138 Potassium 4.2 Chloride 108 H Carbon Dioxide 26 BUN 23 Creatinine 0.76 Glucose 129 H Calcium 8.3 L - ABG Interpretation ABG results: PT/INR, D-dimer PT 12.1 Seconds (9.4-12.1) 05/17/18 04:45 - VTE Reasons for not Prescribing Prophylaxis: Medical contraindication Documentation of Mechanical Device: Intermittent pneumatic compression device Consult Discharge Plan - Plan Referrals: Cherri Amado CNP [Primary Care Provider] -
[2018-05-24] MEDS: Lisinopril-HCTZ 20-12.5mg TABLET PO SCH (21:20)
[2018-05-25] MEDS: *HR* Metoprolol 5 MG/5 ML VIAL IVP SCH ×2 (00:29→05:32)
[2018-05-25] MEDS: Insulin LISPRO 300 UNITS/3 ML VIAL SQ SCH ×2 (05:28→08:34)
[2018-05-25] MEDS: 0.9 % Sodium Chloride 1,000 ML IVC SCH (05:28)
[2018-05-25] MEDS: *HR* Heparin 5,000 UNIT/ML VIAL SQ SCH (05:32)
--- NOTE | 2018-05-25 07:51 | General Surgery Progress Note ---
<Jarocho Swan P - Last Filed: 05/25/18 08:10> Date of Encounter: 05/25/18 Time of Encounter: 07:30 - Assessment and Plan (1) Ulcer at site of surgical anastomosis following bypass of stomach Current Visit: Yes Status: Acute POD #8 following subtotoal gastrectomy with Richard-en-Y pathology. -Patient improving and has been weaned off of TPN -Patient currently tolerating a full liquid diet without complications. Okay to discharge from surgical point of view Patient plans to go to [facility] for inpatient rehab. Per Oncology consult, patient is recommended to follow up in 3 weeks with oncology for labs and a PET scan. Patient and daughter has agreed to follow up on oncology recommendation. (2) Upper GI bleeding Current Visit: Yes Status: Acute See Assessment and Plan above. Subjective Patient reports: no new complaints, voiding w/o difficulty, flatus, bowel movement, afebrile Objective Vital Signs - Last 8 Hours Temp Pulse Resp BP Pulse Ox 05/25/18 07:11 98.6 F 74 15 142/50 96 05/25/18 03:35 98.2 F 73 16 148/63 93 05/24/18 23:43 98.2 F 66 17 122/64 95 Intake and Output 05/24/18 05/24/18 05/25/18 15:59 23:59 07:59 Intake Total 360 / 360 Output Total 100 / 100 900 / 900 375 / 375 Balance 260 / 260 -900 / -900 -375 / -375 Intake: Oral 360 / 360 Output: Urine 100 / 100 900 / 900 375 / 375 Other: Meal Breakfast Percent of Meal Consumed 50% Weight 75 kg Blood Glucose* 164 107 112 - General physical appearance no distress - Neck Neck exam: trachea midline - Respiratory clear to auscultation - Cardiovascular Cardiovascular exam: Present: RRR - Abdomen Abdomen: Present: bowel sounds present, soft, non tender - Integumentary no rash - Musculoskeletal normal gait, normal posture - Psychiatric oriented to time, oriented to person, oriented to place, speech is normal - Labs 05/24/18 06:15 05/24/18 06:15 - VTE Reasons for not Prescribing Prophylaxis: Medical contraindication Documentation of Mechanical Device: Intermittent pneumatic compression device Consult Discharge Plan - Plan Instructions: Gastrectomy (DC), Richard-en-Y Gastric Bypass (DC) Additional Instructions: General Surgical Discharge Instructions 1. No pushing, pulling, or lifting greater than 15 lbs for 4 weeks (depending upon procedure). 2. You may shower beginning today, but no tub baths, soaking, or swimming for 2 weeks. 3. You may resume driving when you are off narcotics and are safe to react in a car (as well as cleared by PT/OT to drive) 4. Take ibuprofen every 8 hours for discomfort. If this does not relieve discomfort, you may take the as needed Percocet. Take narcotics as directed. Do not take more narcotics then directed and do not share your narcotics with any other person. Do not drink alcohol while on narcotics. 5. Take stool softeners (Colace) or a water based laxative (Miralax) while taking narcotics. You may hold for loose stools. 6. Report any fevers greater than 100.5F, increase abdominal discomfort, drainage that looks like pus, increased redness or pain at the surgical site, or any vomiting. 7. Report any pain in the calves, shortness of breath, or rapid heartbeat. 8. Follow-up in the office as directed. 9. FOLLOW THE RICHARD-EN-Y (GASTRIC BYPASS DIET) FOR THE REST OF YOUR LIFE. DRINK AT LEAST 3 PROTEIN SUPPLEMENTS DAILY. Referrals: Hermilo Madden MD [Partnered Physician] - 06/08/18 10:10 am Cherri Amado CNP [Primary Care Provider] - Prescriptions: OxyCODONE/APAP 5/325 [Percocet 5/325 MG] 1 each PO Q6HR PRN 7 Days #28 tablet PRN Reason: Pain Docusate Sodium [Colace] 100 mg PO BID PRN #30 capsule PRN Reason: Constipation Hydrochlorothiazide 25 gm MC DAILY #30 powder Ibuprofen 800 mg PO Q8H PRN #60 tablet PRN Reason: Mild Pain Lactose-Reduced Food [Boost High Protein] 237 ml PO TID 30 Days #120 liquid Lisinopril [Zestril] 40 mg PO DAILY #30 tablet <Hermilo Madden - Last Filed: 05/25/18 13:33> Date of Encounter: 05/25/18 Objective Vital Signs - Last 8 Hours Temp Pulse Resp BP Pulse Ox 05/25/18 10:42 97.5 F L 59 16 124/51 94 05/25/18 07:11 98.6 F 74 15 142/50 96 Intake and Output 05/24/18 05/25/18 05/25/18 23:59 07:59 15:59 Intake Total 240 / 240 Output Total 900 / 900 375 / 375 150 / 150 Balance -900 / -900 -375 / -375 90 / 90 Intake: Oral 240 / 240 Output: Urine 900 / 900 375 / 375 150 / 150 Other: Meal Breakfast Percent of Meal Consumed 100% Weight 75 kg Blood Glucose* 107 112 101 - Labs 05/25/18 10:55 05/24/18 06:15 - Attending Attestation I examined this patient and my medical decision-making was reviewed with the Resident Physician. I agree with the documented findings, disposition and treatment plan as described except to the extent set forth below. The patient is seen and evaluated on morning rounds with the resident, and medical student, and clinical nurse practitioner. He is doing quite well and tolerating diet. He should do well with discharged to the extended care facility. He will see oncology in 3 weeks with a PET scan to discuss possible chemotherapy. Hermilo Madden MD FACS
--- NOTE | 2018-05-25 08:50 | Event Note ---
Date of Encounter: 05/25/18 Time of Encounter: 07:30 Event note placed for d/c information. See d/c A/P Prescriptions have been electronically transmitted it to [facility] (oxycodone, ibuprofen, Colace, boost supplement TID with 11 refills). - Patient Status Disposition: Still a Patient Condition: Fair Overall status at discharge: patient is progressing back to baseline - Discharge Instructions Instructions: Gastrectomy (DC), Venkatesh-en-Y Gastric Bypass (DC) Follow Up With: Cherri Amado CNP [Primary Care Provider] - Hermilo Madden MD [Partnered Physician] - 06/08/18 10:10 am Additional Instructions: General Surgical Discharge Instructions 1. No pushing, pulling, or lifting greater than 15 lbs for 4 weeks (depending upon procedure). 2. You may shower beginning today, but no tub baths, soaking, or swimming for 2 weeks. 3. You may resume driving when you are off narcotics and are safe to react in a car (as well as cleared by PT/OT to drive) 4. Take ibuprofen every 8 hours for discomfort. If this does not relieve discomfort, you may take the as needed Percocet. Take narcotics as directed. Do not take more narcotics then directed and do not share your narcotics with any other person. Do not drink alcohol while on narcotics. 5. Take stool softeners (Colace) or a water based laxative (Miralax) while taking narcotics. You may hold for loose stools. 6. Report any fevers greater than 100.5F, increase abdominal discomfort, drainage that looks like pus, increased redness or pain at the surgical site, or any vomiting. 7. Report any pain in the calves, shortness of breath, or rapid heartbeat. 8. Follow-up in the office as directed. 9. FOLLOW THE VENKATESH-EN-Y (GASTRIC BYPASS DIET) FOR THE REST OF YOUR LIFE. DRINK AT LEAST 3 PROTEIN SUPPLEMENTS DAILY.
[2018-05-25] MEDS ORDERED: Multivit/Ca/Min/Fe/FA 1 TAB TABLET PO SCH (09:00)
--- NOTE | 2018-05-25 09:28 | Discharge Summary ---
- NOTES TO OUTPATIENT PROVIDER Notes to Outpatient Provider: PCP in 5 to 7 days Orders not resulted at time of discharge: Pending orders 05/17/18 15:08 US anesthesia pain block [US] Stat Date of Encounter: 05/25/18 Time of Encounter: 09:26 - Discharge Diagnosis (1) Ulcer at site of surgical anastomosis following bypass of stomach Priority: Primary Status: Acute Assessment and Plan: Dr. Joseph performed EGD on 05/11 with findings significant for large ulcer at the gastroenteric anastomosis, suspicious for cancer. s/p subtotal gastrectomy and Richard-en-Y reconstruction on 05/17/18. Pt also had GI bleed and is s/p 7 units of blood. Diagnosed with adenocarcinoma. Surgery following and oncology consulted. - On TPN + FLD, but diet has been advanced by GS. (2) Upper GI bleeding Priority: Primary Status: Acute Assessment and Plan: Acute blood loss anemia due to UGIB due to anastomotic ulcer s/p 7 units PRBC transfusion this admission. Hgb 9.5 and stable. (3) Essential hypertension Priority: Secondary Status: Chronic Assessment and Plan: Lisinopril-HCTZ increased to 40-25 mg QD. (4) Elevated troponin Priority: Secondary Status: Acute Assessment and Plan: Elevated troponin in setting of GI bleed and acute blood loss anemia was evaluated by cardiology. Per cardiology, NSTEMI II in the setting of GI bleed and acute blood loss anemia. TTE with LVEF 55%, mild concentric LVH, mild diastolic dysfunction, basal inferior wall hypokinetic, all other wall segments with normal motion. Cardiology holding off on [facility] as pt is a poor candidate at this time. Cardiology recommends out pt ischemic evaluation. (5) Acute blood loss anemia Priority: Secondary Status: Acute Assessment and Plan: Acute blood loss anemia due to UGIB due to anastomotic ulcer s/p 7 units PRBC transfusion this admission. Hgb stable at 9.5. (6) Renal mass Priority: Secondary Status: Acute Assessment and Plan: Renal US: 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 MRI kidneys without with gadolinium recommended for additional characterization. 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 No mass lesion or enhancement abnormality. - Unlikely to represent mets (7) Adenocarcinoma Priority: Secondary Status: Acute (8) Right middle lobe pulmonary nodule Priority: Secondary Status: Chronic Assessment and Plan: 4 mm --> CT follow up in 12 months as an outpatient. (9) Tachycardia Priority: Secondary Status: Acute Assessment and Plan: Pt was placed on Scheduled IV lopressor 5 mg Q6 hr for tachycadia. Adding Metoprolol 12.5 mg PO BID due to tachycardia at discharge. Hospital course: Mr. Apple is a 82 year old male with past medical history of gastric ulcer, HTN, diabets, HLD, HTN, kidney stones, smoker, renal mass, who presented with bloody emesis 05/11/2018. Pt was a transfer from [facility] to [place] [facility]. Is Hgb on admission was 7.8 and he was normotensive. Pt was amitted for UGI bleed, acute blood loss anemia, KAYE, and elevated troponin. IV protonix was initiated and GI was consulted. GI bleeding found to be due to gastric adenocarcinoma is s/p subtotal gastrectomy and Richard-en-Y reconstruction on 05/17/18. Discharge discussed with: patient - Time Spent with Patient Total time spent providing and/or coordinating discharge services: Greater than 30 minutes - Discharge Medications Prescriptions: OxyCODONE/APAP 5/325 [Percocet 5/325 MG] 1 each PO Q6HR PRN 7 Days #28 tablet PRN Reason: Pain Docusate Sodium [Colace] 100 mg PO BID PRN #30 capsule PRN Reason: Constipation Ibuprofen 800 mg PO Q8H PRN #60 tablet PRN Reason: Mild Pain Lactose-Reduced Food [Boost High Protein] 237 ml PO TID 30 Days #120 liquid Home Medications: Aspirin 325 mg PO HS 10/18/15 [History] Lovastatin [Mevacor] 20 mg PO HS 10/18/15 [History] metFORMIN [Glucophage] 500 mg PO BIDWM 10/18/15 [History] Ferrous Sulfate [Iron] 325 mg PO DAILY 05/11/18 [History] Mv-Min/FA/Vit K/Lycop/Lut/Zeax [Ocuvite Eye + Multi Tablet] 1 tab PO DAILY 05/11 [History] Docusate Sodium [Colace] 100 mg PO BID PRN #30 capsule 05/25/18 [Rx] Hydrochlorothiazide 25 gm MC DAILY #30 powder 05/25/18 [Rx] Ibuprofen 800 mg PO Q8H PRN #60 tablet 05/25/18 [Rx] Lactose-Reduced Food [Boost High Protein] 237 ml PO TID 30 Days #120 liquid 10/11 [Rx] Lisinopril [Zestril] 40 mg PO DAILY #30 tablet 05/25/18 [Rx] OxyCODONE/APAP 5/325 [Percocet 5/325 MG] 1 each PO Q6HR PRN 7 Days #28 tablet [Rx] Allergies/Adverse Reactions: 3 Allergy/AdvReac Type Severity Reaction Status Date / Time No Known Allergies Allergy Verified 05/11/18 12:28 Date of admission: 05/12/18 13:36 Primary care physician: DONI Reed Consults: 05/11/18 12:41 Consult to Gastroenterology [CONS] Routine Consulting Provider: [facility] [place] Reason for Consult: upper gi bleeding with blood and clot in vomit, hgb drop to 6.9 Call Completed: Yes 05/12/18 07:52 Consult to Cardiology [CONS] Routine Comment: Consulting Provider: Cardiology Lisa Reason for Consult: suspect nstemi, in setting of gib and cannot start hep gtt, please eval for further treatment and kamara recs Call Completed: Yes 05/12/18 09:54 Consult to Surgery [CONS] Routine Consulting Provider: Татьяна Cronin Reason for Consult: suspected gastric malignancy, bx pending Call Completed: Yes 05/13/18 08:34 Consult to Invasive Line Access Team [CONS] Routine Reason for Consult: Insert Midline Line Type: Midline Time Notified: 08:35 Call Completed: Yes 05/14/18 13:35 Consult to Invasive Line Access Team [CONS] Routine Reason for Consult: Picc Line Insertion Line Type: PICC PICC line indications: Parental nutrition 05/14/18 13:36 consult to chiller tender [Consult to Nutrition] [CONS] Routine Comment: TPN start and manage Consulting Provider: NUTRITION Reason for Dietary Consult: TPN Start and Manage 05/15/18 12:35 Consult to Cardiology [CONS] Routine Comment: Consulting Provider: Card[facility] [place] Reason for Consult: re consult, cardiac clearance for OR thursday as discussed , NSTEMI, gastric cancer Call Completed: Yes 05/18/18 08:05 Consult to Occupational Therapy [CONS] Routine Comment: Evaluate, develop and implement POC Reason for Consult: weakness, functional urinary incontience post surgery Does patient have active BEDREST order?: No Is patient medically & hemodynamically stable?: Yes Patient assessed for mobility or mobilized this visit?: No Consult to Physical Therapy [CONS] Routine Comment: Evaluate, develop and implement POC Reason for Consult: weakness post abdominal surgery Does patient have active BEDREST order?: No Is patient medically & hemodynamically stable?: Yes Patient assessed for mobility or mobilized this visit?: No Consult to Literacy Consultant [CONS] Routine Reason for SW Consult: may need home health whenever ready to dischage 05/21/18 09:08 consult to chiller tender [Consult to Nutrition] [CONS] Routine Comment: patient education please include daughter Consulting Provider: NUTRITION Reason for Dietary Consult: Diet Education Other:: educate patient on post gastrectomy diet as similar to physiology richard en y 05/24/18 08:21 Consult to Oncology [CONS] Routine Consulting Provider: On[facility] [place] Reason for Consult: gastric adenocarcinoma, appreciate rec for out patient adjunctive therapy Call Completed: Yes - Constitutional Vitals: Temp Pulse Resp BP Pulse Ox 98.6 F 74 15 142/50 96 05/25/18 07:11 05/25/18 07:11 05/25/18 07:11 05/25/18 07:11 05/25/18 07:11 General appearance: Present: A&O X 3, no acute distress Exam: General: Alert and oriented, not in acute distress. HEENT: moist oral mucosa Cardiovascular:Normal S1 & S2, No JVD. Pulse regular. Lungs: clear to auscultation, no wheezes/rales Abdomen:Soft, non-tender, incision site appears dry and clean, bandage not removed. No guarding, tenderness or rebound Extremities:No edema Neurological:Normal cognition and motor skills. no dysarthria - Head Head exam: Present: atraumatic, normocephalic - Eye Eye exam: Present: PERRL, conjuntiva pink, sclera anicteric Pupils: Present: PERRL - Neck Neck exam general surgery: Present: supple, trachea midline. Absent: lymphadenopathy - Respiratory Respiratory exam: Present: CTAB. Absent: accessory muscle use, rales, rhonchi, wheezes - Cardiovascular Cardiovascular exam: Present: RRR, +S1, +S2. Absent: diastolic murmur, gallop, rubs, systolic murmur - GI/Abdominal GI/Abdominal exam: Present: normal bowel sounds, soft, no peritoneal signs. Absent: distended, tenderness Additional comments: Soft, non-tender, incision site appears dry and clean, bandage not removed. No guarding, tenderness or rebound - Extremities Exam Extremities exam: Present: warm, radial pulses palpable and symmetrical. Absent : calf tenderness, cyanotic, pedal edema - Neurological Exam Neurological exam: Present: CN II-XII intact, oriented X3, no focal deficits. Absent: pronater drift, facial droop, speech deficit - Skin Skin exam: Present: dry, intact - Patient Status Disposition: Transfer SNF Condition: Fair Overall status at discharge: patient is progressing back to baseline - Discharge Instructions Instructions: Gastrectomy (DC), Richard-en-Y Gastric Bypass (DC) Follow Up With: Hermilo Madden MD [Partnered Physician] - 06/08/18 10:10 am Cherri Amado CNP [Primary Care Provider] - Additional Instructions: General Surgical Discharge Instructions 1. No pushing, pulling, or lifting greater than 15 lbs for 4 weeks (depending upon procedure). 2. You may shower beginning today, but no tub baths, soaking, or swimming for 2 weeks. 3. You may resume driving when you are off narcotics and are safe to react in a car (as well as cleared by PT/OT to drive) 4. Take ibuprofen every 8 hours for discomfort. If this does not relieve discomfort, you may take the as needed Percocet. Take narcotics as directed. Do not take more narcotics then directed and do not share your narcotics with any other person. Do not drink alcohol while on narcotics. 5. Take stool softeners (Colace) or a water based laxative (Miralax) while taking narcotics. You may hold for loose stools. 6. Report any fevers greater than 100.5F, increase abdominal discomfort, drainage that looks like pus, increased redness or pain at the surgical site, or any vomiting. 7. Report any pain in the calves, shortness of breath, or rapid heartbeat. 8. Follow-up in the office as directed. 9. FOLLOW THE RICHARD-EN-Y (GASTRIC BYPASS DIET) FOR THE REST OF YOUR LIFE. DRINK AT LEAST 3 PROTEIN SUPPLEMENTS DAILY. - Diet and Activity Activity: as per physical therapy, increase activity as tolerated Diet: low fat, low cholesterol, low salt diet - VTE Reasons for not Prescribing Prophylaxis: Medical contraindication Documentation of Mechanical Device: Intermittent pneumatic compression device
[2018-05-25] MEDS: Nicotine 7 MG PATCH.TD24 TD SCH (10:10)
[2018-05-25] MEDS: OXYCODONE Oral CONC 10 MG/0.5 ML ORAL.SYG SL PRN (10:11)
[2018-05-25] MEDS: Benzonatate 100 MG CAPSULE PO SCH (10:11)
[2018-05-25 10:52] VITALS: BP 124/51
[2018-05-25 11:07] LABS: Basophils % 0.6 %; Eosinophils # 0.2 K/mcL (0.0-0.6); Eosinophils % 2.9 %; Hematocrit 31.2 % (37.5-50.1); Hemoglobin 9.5 g/dL (12.9-16.9); Immature Granulocytes % 0.3 % (0-4); Lymphocytes # 0.5 K/mcL (0.6-4.6); Lymphocytes % 7.9 %; Mean Corpuscular HGB Conc 30.4 g/dL (31.6-35.5); Mean Corpuscular Hemoglobin 29.5 pg (28.0-33.3); Mean Corpuscular Volume 96.9 fL (83.0-100.0); Mean Platelet Volume 10.8 fL (9.4-12.4); Monocytes # 0.9 K/mcL (0.0-1.3); Monocytes % 13.3 %; Neutrophils # 4.9 K/mcL (1.6-8.9); Platelet Count 336 K/mcL (140-400); Red Blood Count 3.22 M/mcL (4.19-5.50); Red Cell Distribution Width 17.1 % (11.5-14.5)
[2018-05-25] MEDS ORDERED: Insulin LISPRO 300 UNITS/3 ML VIAL SQ SCH ×2 (11:30→21:00)
--- NOTE | 2018-05-25 11:52 | Physician Discharge Referral ---
ExtendedCare Referral Info Provider in Charge after Transfer: PCP Institutional Level of Care: Skilled - Diagnosis (1) Ulcer at site of surgical anastomosis following bypass of stomach Status: Acute (2) Upper GI bleeding Status: Acute (3) Essential hypertension Status: Chronic (4) Elevated troponin Status: Acute (5) Acute blood loss anemia Status: Acute (6) Renal mass Status: Acute (7) Adenocarcinoma Status: Acute (8) Right middle lobe pulmonary nodule Status: Chronic (9) Tachycardia Status: Acute - Transfer Medications Prescriptions: OxyCODONE/APAP 5/325 [Percocet 5/325 MG] 1 each PO Q6HR PRN 7 Days #28 tablet PRN Reason: Pain Docusate Sodium [Colace] 100 mg PO BID PRN #30 capsule PRN Reason: Constipation Hydrochlorothiazide 25 gm MC DAILY #30 powder Ibuprofen 800 mg PO Q8H PRN #60 tablet PRN Reason: Mild Pain Lactose-Reduced Food [Boost High Protein] 237 ml PO TID 30 Days #120 liquid Lisinopril [Zestril] 40 mg PO DAILY #30 tablet Home Medications: Aspirin 325 mg PO HS 10/18/15 [History] Lovastatin [Mevacor] 20 mg PO HS 10/18/15 [History] metFORMIN [Glucophage] 500 mg PO BIDWM 10/18/15 [History] Ferrous Sulfate [Iron] 325 mg PO DAILY 05/11/18 [History] Mv-Min/FA/Vit K/Lycop/Lut/Zeax [Ocuvite Eye Plus Multi Tablet] 1 tab PO DAILY [History] Docusate Sodium [Colace] 100 mg PO BID PRN #30 capsule 05/25/18 [Rx] Hydrochlorothiazide 25 gm MC DAILY #30 powder 05/25/18 [Rx] Ibuprofen 800 mg PO Q8H PRN #60 tablet 05/25/18 [Rx] Lactose-Reduced Food [Boost High Protein] 237 ml PO TID 30 Days #120 liquid 10/11 [Rx] Lisinopril [Zestril] 40 mg PO DAILY #30 tablet 05/25/18 [Rx] OxyCODONE/APAP 5/325 [Percocet 5/325 MG] 1 each PO Q6HR PRN 7 Days #28 tablet [Rx] Allergies/Adverse Reactions: 3 Allergy/AdvReac Type Severity Reaction Status Date / Time No Known Allergies Allergy Verified 05/11/18 12:28 - Respiratory Orders Smoking Cessation: Smoking cessation has been advised. For more information, call the [place] Tobacco Quit Line at 2-167-FLXU-NOW. - Lab Orders Lab Orders: CBC - Advance Directives Code Status: Full Code - Rehabiliation Orders Rehab Potential: Fair Rehab Orders: Evaluation for Physical Therapy, Evaluation for Occupational Therapy - Diet Orders Cardiac CERTIFICATION: I certify that the transfer of the above named patient to an Extended Care Facility is necessary for the continuing treatment of the diagnosis listed. The above information is true and accurate reflection of patient's current condition. Confidential - Redisclosure prohibited without a patient's written consent.
--- NOTE | 2018-05-27 09:43 | Electrocardiograph Report ---
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
== END 2018-05-25 12:45 | DRG 326 ==
LOC: 2ANU → SUATTDRO 09:38
PROVIDERS: ADMIT Internal Medicine; ATTEND Internal Medicine
PROC: ENDOEBX (2018-05-11 14:30)

== ENCOUNTER 2019-10-01 15:24 | Inpatient (IN) ==
[2019-10-01] MEDS ORDERED: Naloxone 0.4 MG/ML INJ IVP PRN (17:21)
[2019-10-01] MEDS ORDERED: D5% in Water 1,000 ML IVC PRN (17:45)
[2019-10-01] MEDS ORDERED: Dextrose Gel 15 GM/37.5 ML TUBE PO PRN ×2 (17:45)
[2019-10-01] MEDS ORDERED: *HR* Dextrose 50 % in Water (Syg) 50 ML SYRINGE IVP PRN (17:45)
[2019-10-01] MEDS: *HR* Heparin 5,000 UNIT/ML VIAL SQ SCH (18:40)
[2019-10-01] MEDS ORDERED: *HR* LORazepam 2 MG/ML VIAL IVP ONE (23:48)
[2019-10-01] MEDS ORDERED: Morphine Sulfate 2 MG/ML SYRINGE IVP ONE (23:50)
[2019-10-02 05:19] LABS: Basophils % 0.3 %; Eosinophils % 0.4 %; Hematocrit 34.5 % (37.5-50.1); Hemoglobin 11.3 g/dL (12.9-16.9); Immature Granulocytes % 0.2 % (0-4); Lymphocytes # 0.9 K/mcL (0.6-4.6); Lymphocytes % 9.6 %; Mean Corpuscular HGB Conc 32.8 g/dL (31.6-35.5); Mean Corpuscular Hemoglobin 32.6 pg (28.0-33.3); Mean Corpuscular Volume 99.4 fL (83.0-100.0); Mean Platelet Volume 11.6 fL (9.4-12.4); Monocytes # 1.2 K/mcL (0.0-1.3); Monocytes % 12.8 %; Platelet Count 240 K/mcL (140-400); Red Blood Count 3.47 M/mcL (4.19-5.50); Red Cell Distribution Width 12.9 % (11.5-14.5); Segmented Neutrophils % 76.7 %; White Blood Count 9.2 K/mcL (4.3-11.1)
[2019-10-02] MEDS: *HR* Heparin 5,000 UNIT/ML VIAL SQ SCH ×2 (05:37→16:45)
[2019-10-02 05:38] LABS: Calcium 9.1 mg/dL (8.6-10.3); Potassium 3.8 mEq/L (3.5-5.1)
[2019-10-02] MEDS: Insulin LISPRO 300 UNITS/3 ML VIAL SQ SCH ×3 (07:47→16:45)
[2019-10-03] MEDS ORDERED: *HR* LORazepam 2 MG/ML VIAL IVP ONE (01:24)
[2019-10-03] MEDS ORDERED: Morphine Sulfate 2 MG/ML SYRINGE IVP ONE (01:25)
[2019-10-03] MEDS: *HR* Heparin 5,000 UNIT/ML VIAL SQ SCH ×2 (05:58→16:49)
[2019-10-03] MEDS: Insulin LISPRO 300 UNITS/3 ML VIAL SQ SCH ×3 (07:29→16:48)
[2019-10-03] MEDS: Melatonin 3 MG TABLET PO PRN (22:03)
[2019-10-04] MEDS: *HR* Heparin 5,000 UNIT/ML VIAL SQ SCH ×2 (05:01→16:23)
[2019-10-04] MEDS: Insulin LISPRO 300 UNITS/3 ML VIAL SQ SCH ×3 (07:43→16:23)
[2019-10-04] MEDS ORDERED: CeFAZolin Syr 2,000MG/20 ML 2,000 MG/20 ML SYRINGE IVPB ONE (09:03)
[2019-10-04 09:43] LABS: INR 1.1
[2019-10-04] MEDS: amLODIPine 5 MG TABLET PO SCH (10:25)
[2019-10-04] MEDS ORDERED: *HR* FentaNYL (PF) 100 MCG/2 ML VIAL ONE (10:43)
[2019-10-04] MEDS ORDERED: 0.9 % Sodium Chloride 500 ML ONE (10:43)
[2019-10-04] MEDS ORDERED: *HR* Midazolam HCl 5 MG/5 ML VIAL IVP ONE (10:43)
[2019-10-04] MEDS ORDERED: Water for inj. (sterile) 10 ML ONE (10:45)
[2019-10-04] MEDS ORDERED: 0.9 % Sodium Chloride 1,000 ML ONE (10:53)
[2019-10-04] MEDS: Melatonin 3 MG TABLET PO PRN (21:36)
[2019-10-05] MEDS ORDERED: Nitroglycerin 0.4 MG TAB.SUBL SL ONE (01:55)
[2019-10-05] MEDS ORDERED: Ondansetron 4 MG/2 ML VIAL ONE (01:56)
[2019-10-05] MEDS ORDERED: Ondansetron 4 MG/2 ML VIAL IVP PRN (01:58)
[2019-10-05 02:11] LABS: Basophils % 0.3 %; Eosinophils # 0.1 K/mcL (0.0-0.6); Eosinophils % 0.6 %; Hematocrit 36.8 % (37.5-50.1); Hemoglobin 12.4 g/dL (12.9-16.9); Immature Granulocytes % 0.3 % (0-4); Lymphocytes % 10.2 %; Mean Corpuscular HGB Conc 33.7 g/dL (31.6-35.5); Mean Corpuscular Hemoglobin 32.2 pg (28.0-33.3); Mean Corpuscular Volume 95.6 fL (83.0-100.0); Mean Platelet Volume 10.6 fL (9.4-12.4); Monocytes # 1.3 K/mcL (0.0-1.3); Monocytes % 12.9 %; Neutrophils # 7.6 K/mcL (1.6-8.9); Platelet Count 313 K/mcL (140-400); Red Blood Count 3.85 M/mcL (4.19-5.50); Segmented Neutrophils % 75.7 %; White Blood Count 10.1 K/mcL (4.3-11.1)
[2019-10-05] MEDS: Nitroglycerin 0.4 MG TAB.SUBL SL PRN ×2 (02:20→02:25)
[2019-10-05 02:30] LABS: BUN/Creatinine Ratio 31 (6-26); Blood Urea Nitrogen 37 mg/dL (8-23); Calcium 9.1 mg/dL (8.6-10.3); Carbon Dioxide 21 mEq/L (23-29); Chloride 103 mEq/L (98-107); Glucose 113 mg/dL (70-105); Osmolality,Calculated 293 (280-300); Potassium 4.1 mEq/L (3.5-5.1); Sodium 137 mEq/L (136-145); eGFR For African Americans > 60 (> 60); eGFR For Non-African Americans 58 (> 60)
[2019-10-05 02:32] LABS: Troponin I 2.18 ng/mL (< 0.04)
[2019-10-05] MEDS ORDERED: *HR* Heparin 5,000 UNIT/ML VIAL IVP ONE (02:39)
[2019-10-05] MEDS ORDERED: *HR* Heparin 5,000 UNIT/ML VIAL IVP PRN ×2 (02:39)
[2019-10-05] MEDS: Heparin 25,000 UNIT/250 ML D5W 25,000 UNIT/250 ML IV.SOLN IVC SCH (02:57)
[2019-10-05 03:10] LABS: Heparin anti-factor XA UFH < 0.04 IU/mL (0.30-0.70); Prothrombin Time 11.6 Seconds (9.4-12.1)
[2019-10-05] MEDS: Insulin LISPRO 300 UNITS/3 ML VIAL SQ SCH ×3 (07:53→16:40)
[2019-10-05] MEDS: amLODIPine 5 MG TABLET PO SCH (07:55)
[2019-10-05 09:57] LABS: Hematocrit 36.6 % (37.5-50.1); Hemoglobin 11.9 g/dL (12.9-16.9); Mean Corpuscular HGB Conc 32.5 g/dL (31.6-35.5); Mean Corpuscular Hemoglobin 32.6 pg (28.0-33.3); Mean Corpuscular Volume 100.3 fL (83.0-100.0); Mean Platelet Volume 10.9 fL (9.4-12.4); Platelet Count 308 K/mcL (140-400); Red Blood Count 3.65 M/mcL (4.19-5.50); White Blood Count 10.5 K/mcL (4.3-11.1)
[2019-10-05] MEDS: carvediloL 6.25 MG TABLET PO SCH ×2 (11:44→16:14)
[2019-10-05] MEDS: Aspirin Enteric Coated 81 MG Tablet PO SCH (11:44)
[2019-10-05] MEDS: Isosorbide MONOnitrate (24 HR) 30 MG TAB.ER.24H PO SCH (12:41)
[2019-10-05] MEDS: Melatonin 3 MG TABLET PO PRN (20:46)
[2019-10-06] MEDS: Heparin 25,000 UNIT/250 ML D5W 25,000 UNIT/250 ML IV.SOLN IVC SCH (04:15)
[2019-10-06] MEDS: Aspirin Enteric Coated 81 MG Tablet PO SCH (08:15)
[2019-10-06] MEDS: amLODIPine 5 MG TABLET PO SCH (08:15)
[2019-10-06] MEDS: carvediloL 6.25 MG TABLET PO SCH ×2 (08:16→17:27)
[2019-10-06] MEDS: Isosorbide MONOnitrate (24 HR) 30 MG TAB.ER.24H PO SCH (08:16)
[2019-10-06] MEDS: Insulin LISPRO 300 UNITS/3 ML VIAL SQ SCH ×3 (08:17→17:12)
[2019-10-06 09:25] LABS: Basophils # 0.1 K/mcL (0.0-0.2); Basophils % 0.7 %; Eosinophils # 0.2 K/mcL (0.0-0.6); Eosinophils % 2.8 %; Hematocrit 33.7 % (37.5-50.1); Hemoglobin 11.2 g/dL (12.9-16.9); Immature Granulocytes % 0.3 % (0-4); Lymphocytes # 0.8 K/mcL (0.6-4.6); Lymphocytes % 10.5 %; Mean Corpuscular HGB Conc 33.2 g/dL (31.6-35.5); Mean Corpuscular Hemoglobin 32.1 pg (28.0-33.3); Mean Corpuscular Volume 96.6 fL (83.0-100.0); Mean Platelet Volume 10.6 fL (9.4-12.4); Monocytes % 13.4 %; Neutrophils # 5.5 K/mcL (1.6-8.9); Platelet Count 293 K/mcL (140-400); Red Blood Count 3.49 M/mcL (4.19-5.50); Red Cell Distribution Width 12.8 % (11.5-14.5); Segmented Neutrophils % 72.3 %; White Blood Count 7.5 K/mcL (4.3-11.1)
[2019-10-06 09:46] LABS: BUN/Creatinine Ratio 26 (6-26); Blood Urea Nitrogen 33 mg/dL (8-23); Calcium 8.9 mg/dL (8.6-10.3); Carbon Dioxide 24 mEq/L (23-29); Chloride 103 mEq/L (98-107); Glucose 153 mg/dL (70-105); Osmolality,Calculated 290 (280-300); Potassium 4.7 mEq/L (3.5-5.1); Sodium 135 mEq/L (136-145); eGFR For African Americans > 60 (> 60); eGFR For Non-African Americans 55 (> 60)
[2019-10-06] MEDS ORDERED: Isovue-370 500 ML BOTTLE IVP ONE (11:41)
[2019-10-06] MEDS ORDERED: Isovue-370 500 ML BOTTLE PO ONE (15:28)
[2019-10-06] MEDS: *HR* Heparin 5,000 UNIT/ML VIAL SQ SCH (17:27)
[2019-10-06] MEDS: Melatonin 3 MG TABLET PO PRN (20:18)
[2019-10-07] MEDS: *HR* Heparin 5,000 UNIT/ML VIAL SQ SCH ×2 (05:29→18:55)
[2019-10-07] MEDS: Insulin LISPRO 300 UNITS/3 ML VIAL SQ SCH ×3 (09:06→16:50)
[2019-10-07] MEDS: Aspirin Enteric Coated 81 MG Tablet PO SCH (09:12)
[2019-10-07] MEDS: amLODIPine 5 MG TABLET PO SCH (09:12)
[2019-10-07] MEDS: carvediloL 6.25 MG TABLET PO SCH ×2 (09:12→18:54)
[2019-10-07] MEDS: Isosorbide MONOnitrate (24 HR) 30 MG TAB.ER.24H PO SCH (09:13)
[2019-10-07 10:06] LABS: Basophils % 0.5 %; Eosinophils # 0.1 K/mcL (0.0-0.6); Eosinophils % 2.1 %; Hematocrit 32.6 % (37.5-50.1); Hemoglobin 10.5 g/dL (12.9-16.9); Immature Granulocytes % 0.2 % (0-4); Lymphocytes # 0.7 K/mcL (0.6-4.6); Lymphocytes % 11.5 %; Mean Corpuscular HGB Conc 32.2 g/dL (31.6-35.5); Mean Corpuscular Hemoglobin 32.4 pg (28.0-33.3); Mean Corpuscular Volume 100.6 fL (83.0-100.0); Mean Platelet Volume 10.6 fL (9.4-12.4); Monocytes # 1.1 K/mcL (0.0-1.3); Monocytes % 16.8 %; Neutrophils # 4.3 K/mcL (1.6-8.9); Platelet Count 268 K/mcL (140-400); Red Blood Count 3.24 M/mcL (4.19-5.50); Red Cell Distribution Width 12.6 % (11.5-14.5); Segmented Neutrophils % 68.9 %; White Blood Count 6.3 K/mcL (4.3-11.1)
[2019-10-07 10:27] LABS: BUN/Creatinine Ratio 23 (6-26); Blood Urea Nitrogen 27 mg/dL (8-23); Calcium 9.1 mg/dL (8.6-10.3); Carbon Dioxide 27 mEq/L (23-29); Chloride 102 mEq/L (98-107); Glucose 105 mg/dL (70-105); Osmolality,Calculated 289 (280-300); Potassium 4.4 mEq/L (3.5-5.1); Sodium 137 mEq/L (136-145); eGFR For African Americans > 60 (> 60); eGFR For Non-African Americans > 60 (> 60)
[2019-10-07] MEDS ORDERED: *HR* Propofol 200 MG/20 ML VIAL IVP ONE (12:55)
[2019-10-07] MEDS ORDERED: Lidocaine -MPF 2% 2 ML VIAL ONE (12:55)
[2019-10-07] MEDS: Pantoprazole 40 MG VIAL IVP SCH (18:56)
[2019-10-07] MEDS: Melatonin 3 MG TABLET PO PRN (21:01)
[2019-10-08] MEDS: Pantoprazole 40 MG VIAL IVP SCH (05:04)
[2019-10-08] MEDS: *HR* Heparin 5,000 UNIT/ML VIAL SQ SCH (05:04)
[2019-10-08] MEDS: Insulin LISPRO 300 UNITS/3 ML VIAL SQ SCH ×2 (08:26→12:58)
[2019-10-08] MEDS: Isosorbide MONOnitrate (24 HR) 30 MG TAB.ER.24H PO SCH (08:35)
[2019-10-08] MEDS: carvediloL 6.25 MG TABLET PO SCH (08:35)
[2019-10-08] MEDS: Aspirin Enteric Coated 81 MG Tablet PO SCH (08:35)
[2019-10-08] MEDS: amLODIPine 5 MG TABLET PO SCH (08:35)
[2019-10-08 11:29] VITALS: BP 140/72
== END 2019-10-08 14:01 | disposition home or self-care (01) | DRG 260 ==
LOC: 2NNU → SUATTDRO 16:59
PROVIDERS: ADMIT Internal Medicine; ATTEND Internal Medicine